=== PATIENT | male | born 1990 | race Two or more races ===

== ENCOUNTER 2016-02-26 12:45 | Emergency (ER) | payer MEDICARE, MEDICAID ==
[~2016-02-26] VITALS: Ht 165.1 cm; Wt 63.5 kg
[~2016-02-26 12:45] MED LIST: CAL667C PO; CHOL500016 PO; CINA30TA2 PO; CLON0.3T PO; FERR325T PO; HYDR100T9 PO; LAB200T PO; MET10T PO; MINO10TA2 PO; NIFE60TA59 PO; NITRSPR10 TL; NOR5T PO; PREG25CA PO; RISP0.5T45 PO
[2016-02-26 14:03] LABS: Basophils # (auto) 0 uL; Eosinophils # (auto) 0.1 uL; Eosinophils % (auto) 1.1 % (0.0-7.0); Hematocrit 29.9 % (41.0-53.0); Hemoglobin 9.7 g/dL (13.5-17.5); Lymphocytes # (auto) 0.7 uL; Lymphocytes % (auto) 7.5 % (10.0-50.0); Mean Corpuscular Hemoglobin 29.7 pg (28.0-32.0); Mean Corpuscular Hgb Conc. 32.5 g/dL (32.0-36.0); Mean Corpuscular Volume 91.2 fL (80.0-100.0); Mean Platelet Volume 7.3 fL (7.4-10.4); Monocytes # (auto) 0.5 uL; Monocytes % (auto) 5.5 % (0.0-12.0); Neutrophils # (auto) 8.1 uL; Neutrophils % (auto) 85.9 % (37.0-80.0); Platelet Count (auto) 204 10^3/uL (140-450); Red Cell Distribution Width 15.5 % (11.6-16.0); White Blood Cell 9.5 10^3/uL (4.4-10.8)
[2016-02-26 14:25] LABS: BUN/Creatinine Ratio 4.1; Bilirubin, Total 1.2 mg/dL (0.2-1.0); Calcium 9.2 mg/dL (8.5-10.1); Potassium 4.3 mmol/L (3.5-5.1); Total Protein 7.1 g/dL (6.4-8.2)
[2016-02-26] MEDS ORDERED: cefTRIAXone 1GM/50ML D5W 50 ML IV ONE (15:45)
[2016-02-26 16:03] LABS: INR 1.15 (0.9-1.15); Partial Thromboplastin Time 29.8 sec (22.64-33.71); Prothrombin Time 11.8 sec (9.37-12.3)
[2016-02-26 16:06] LABS: Magnesium 2.4 mg/dL (1.6-2.6)
[2016-02-26] MEDS ORDERED: ONDANSETRON HCL 4 MG/2 ML VIAL IV ONE (16:30)
[2016-02-26] MEDS ORDERED: MORPHINE SULF INJ 2 MG/ML SYRINGE 1ML IV ONE ×2 (16:30→19:15)
[2016-02-26] MEDS ORDERED: VANCOMYCIN IV ONE (17:15)
[2016-02-26] MEDS ORDERED: DEXTROSE IV ONE (17:15)
[2016-02-26] MEDS ORDERED: PROMETHAZINE HCL 25 MG/ML 1ML IV ONE (19:15)
[2016-02-26] MEDS ORDERED: hydrALAZINE HCL 20 MG/ML VL IV ONE (19:45)
[2016-02-26] MEDS ORDERED: ACETAMINOPHEN 325 MG TAB PO ONE (20:00)
[2016-02-26] MEDS ORDERED: LORazepam 2MG/ML-1ML VIAL IV ONE (20:30)
[2016-02-26] MEDS: NICARDIPINE 25MG/250ML BAG KIT 250 ML IV SCH (23:26)
[2016-02-27] MEDS ORDERED: LABETALOL HCL 200 MG TAB PO ONE (00:30)
[2016-02-27] MEDS ORDERED: ONDANSETRON HCL 4 MG/2 ML VIAL IV ONE (00:30)
[2016-02-27 02:49] VITALS: BP 179/103
[2016-02-27] MEDS ORDERED: MORPHINE SULFATE 4 MG/ML SYRG IV ONE (03:15)
[2016-02-27] MEDS: NICARDIPINE 25MG/250ML BAG KIT 250 ML IV SCH (03:20)
[2016-02-27] MEDS ORDERED: ALBUTEROL SULF 2.5 MG/0.5ML(0.5%) NEB SOLN NEB ONE (03:45)
[2016-02-27] MEDS ORDERED: IPRATROPIUM BROM 0.5 MG/2.5ML INH SOL NEB ONE (03:45)
== END 2016-02-27 03:22 | disposition short-term general hospital (02) ==
LOC: EDUNIT# 12:45 → ER 12:52
DX: I12.0 Hypertensive chronic kidney disease with stage 5 chronic kidney disease or end stage renal disease (principal); N18.6 End stage renal disease; Z99.2 Dependence on renal dialysis; D63.8 Anemia in other chronic diseases classified elsewhere; M65.9 Synovitis and tenosynovitis, unspecified; R11.2 Nausea with vomiting, unspecified; Z86.73 Personal history of transient ischemic attack (TIA), and cerebral infarction without residual deficits; Z94.0 Kidney transplant status; F12.10 Cannabis abuse, uncomplicated; Z79.899 Other long term (current) drug therapy
CPT/HCPCS: 36415; 71010; 73200; 80053; 82150; 83690; 83735; 85025; 85610; 85730; 87040; 93005; 94761; 96365; 96366; 96367; 96375; 96376; 99285; J0360; J0696; J2060; J2270; J2405; J2550; J3370

== ENCOUNTER 2016-03-30 02:59 | Emergency (ER) | payer MEDICARE, MEDICAID ==
[~2016-03-30] VITALS: Ht 165.1 cm; Wt 61.2 kg
[2016-03-30] MEDS ORDERED: cloNIDine HCL 0.1 MG TAB PO ONE (03:30)
[2016-03-30] MEDS ORDERED: cloNIDine HCL 0.1 MG TAB ONE (03:30)
[2016-03-30 03:56] LABS: Basophils # (auto) 0 uL; Basophils % (auto) 0.3 % (0.0-2.0); Eosinophils # (auto) 0.3 uL; Eosinophils % (auto) 5.6 % (0.0-7.0); Hematocrit 29.6 % (41.0-53.0); Hemoglobin 9.4 g/dL (13.5-17.5); Lymphocytes # (auto) 0.7 uL; Lymphocytes % (auto) 12.4 % (10.0-50.0); Mean Corpuscular Hemoglobin 28.9 pg (28.0-32.0); Mean Corpuscular Hgb Conc. 31.7 g/dL (32.0-36.0); Mean Platelet Volume 7.9 fL (7.4-10.4); Monocytes # (auto) 0.6 uL; Monocytes % (auto) 12.3 % (0.0-12.0); Neutrophils # (auto) 3.6 uL; Neutrophils % (auto) 69.4 % (37.0-80.0); Platelet Count (auto) 194 10^3/uL (140-450); Red Cell Distribution Width 16.3 % (11.6-16.0); White Blood Cell 5.3 10^3/uL (4.4-10.8)
[2016-03-30 04:13] LABS: Calcium 8.7 mg/dL (8.5-10.1); Magnesium 2.3 mg/dL (1.6-2.6)
[2016-03-30] MEDS ORDERED: ACETAMINOPHEN 325 MG TAB PO ONE (04:15)
[2016-03-30 04:21] LABS: BUN/Creatinine Ratio 5.1; Bilirubin, Total 0.7 mg/dL (0.2-1.0); Total Protein 7.4 g/dL (6.4-8.2)
[2016-03-30] MEDS ORDERED: HYDROmorphone HCL 2 MG/ML VL IV ONE (04:45)
[2016-03-30] MEDS ORDERED: ONDANSETRON HCL 4 MG/2 ML VIAL IV ONE (04:45)
[2016-03-30 06:21] VITALS: BP 170/90
== END 2016-03-30 06:28 | disposition home or self-care (01) ==
LOC: ER 03:01
DX: R07.89 Other chest pain (principal); M79.601 Pain in right arm; I12.0 Hypertensive chronic kidney disease with stage 5 chronic kidney disease or end stage renal disease; N18.6 End stage renal disease; Z99.2 Dependence on renal dialysis; Z86.73 Personal history of transient ischemic attack (TIA), and cerebral infarction without residual deficits; Z79.899 Other long term (current) drug therapy
CPT/HCPCS: 36415; 71010; 80053; 83735; 84484; 85025; 93005; 96374; 96375; 99285; J1170; J2405

== ENCOUNTER 2016-03-30 23:53 | Emergency (ER) | payer MEDICARE, MEDICAID ==
[2016-04-13] MEDS ORDERED: ACET30TA15 PO (11:33)
[2016-04-13] MEDS ORDERED: METO-159 PO (11:35)
[2016-04-24] MEDS ORDERED: METO-159 PO (17:23)
== END 2016-03-31 | disposition left against medical advice (07) ==
LOC: ER 03-31 00:05
DX: R20.0 Anesthesia of skin (principal); Z53.21 Procedure and treatment not carried out due to patient leaving prior to being seen by health care provider

== ENCOUNTER 2016-04-21 02:03 | Inpatient (IN) | payer MEDICARE, MEDICAID ==
[~2016-04-21] VITALS: Ht 165.1 cm; Wt 70.6 kg
[2016-04-21] MEDS ORDERED: ONDANSETRON HCL 4 MG/2 ML VIAL ONE (02:59)
[2016-04-21] MEDS: NICARDIPINE 25MG/250ML BAG KIT 250 ML IV SCH ×5 (03:00→22:45)
[2016-04-21] MEDS ORDERED: MORPHINE SULF INJ 2 MG/ML SYRINGE 1ML ONE (03:04)
[2016-04-21 03:05] LABS: Basophils # (auto) 0 uL; Basophils % (auto) 0.3 % (0.0-2.0); Eosinophils # (auto) 0.3 uL; Eosinophils % (auto) 3.4 % (0.0-7.0); Hematocrit 29.3 % (41.0-53.0); Hemoglobin 9.4 g/dL (13.5-17.5); Lymphocytes # (auto) 0.8 uL; Lymphocytes % (auto) 9.6 % (10.0-50.0); Mean Corpuscular Hemoglobin 28.3 pg (28.0-32.0); Mean Corpuscular Hgb Conc. 32.2 g/dL (32.0-36.0); Mean Corpuscular Volume 87.6 fL (80.0-100.0); Mean Platelet Volume 7.8 fL (7.4-10.4); Monocytes # (auto) 0.5 uL; Monocytes % (auto) 6.2 % (0.0-12.0); Neutrophils # (auto) 6.6 uL; Neutrophils % (auto) 80.5 % (37.0-80.0); Platelet Count (auto) 237 10^3/uL (140-450); White Blood Cell 8.1 10^3/uL (4.4-10.8)
[2016-04-21] MEDS ORDERED: MORPHINE SULFATE 4 MG/ML SYRG ONE (03:05)
[2016-04-21] MEDS ORDERED: MORPHINE SULFATE 10 MG/ML INJ 1ML SDV IV ONE (03:15)
[2016-04-21] MEDS ORDERED: ONDANSETRON HCL 4 MG/2 ML VIAL IV ONE ×2 (03:15)
[2016-04-21 03:17] LABS: Partial Thromboplastin Time 29.6 sec (22.64-33.71)
[2016-04-21 03:22] LABS: Albumin 3.5 g/dL (3.4-5.0); Calcium 8.6 mg/dL (8.5-10.1); Magnesium 2.2 mg/dL (1.6-2.6)
[2016-04-21 03:29] LABS: BUN/Creatinine Ratio 4.9; Bilirubin, Total 0.7 mg/dL (0.2-1.0); Total Protein 7.1 g/dL (6.4-8.2)
[2016-04-21 03:34] LABS: Potassium 6.4 mmol/L (3.5-5.1)
[2016-04-21 03:36] LABS: B-Type Natriuretic Peptide > 5000 pg/mL (0-100); Temperature: 20.3 C (20.0-25.0)
[2016-04-21 03:38] LABS: INR 1.26 (0.9-1.15)
[2016-04-21] MEDS ORDERED: ALBUTEROL SULF 2.5 MG/0.5ML(0.5%) NEB SOLN NEB ONE (03:45)
[2016-04-21] MEDS ORDERED: DEXTROSE (50%) 50ML SYRG IV ONE (03:45)
[2016-04-21] MEDS ORDERED: CALCIUM CHL 100MG/ML 1,000 MG in D5W 5% 100 ML IV ONE (03:45)
[2016-04-21] MEDS ORDERED: SODIUM BICARBONATE 8.4 % INJ 50ML VIAL IV ONE (03:45)
[2016-04-21] MEDS ORDERED: InsuLIN REG 1unit/0.01ml Soln (100units/ml) IV ONE (03:45)
[2016-04-21] MEDS ORDERED: CALCIUM GLUC 4.65 MEQ/10ML IV ONE (04:11)
[2016-04-21] MEDS ORDERED: CALCIUM CHLOR(10%) 100MG/ML 10ML SYRINGE IV ONE (04:14)
[2016-04-21] MEDS ORDERED: cloNIDine HCL 0.1 MG TAB PO ONE (04:30)
[2016-04-21] MEDS ORDERED: HYDROcodone-ACET 5/325MG TAB PO PRN (06:45)
[2016-04-21] MEDS ORDERED: MORPHINE SULF INJ 2 MG/ML SYRINGE 1ML IV PRN (06:45)
[2016-04-21] MEDS ORDERED: ONDANSETRON HCL 4 MG/2 ML VIAL IV PRN (06:45)
[2016-04-21] MEDS ORDERED: ACETAMINOPHEN 325 MG TAB PO PRN (06:45)
[2016-04-21] MEDS ORDERED: DEXTROSE (50%) 50ML SYRG IV PRN (06:45)
[2016-04-21] MEDS ORDERED: NITROGLYCERIN 0.4 MG SL TAB SL PRN (06:45)
[2016-04-21] MEDS ORDERED: FAMOTIDINE 20 MG TAB PO SCH (10:00)
[2016-04-21] MEDS: FAMOTIDINE 20 MG TAB PO SCH (10:00)
[2016-04-21 10:17] VITALS: BP 162/98
[2016-04-21] MEDS ORDERED: EPOETIN ALFA 10,000 UNIT/1 ML VIAL IV ONE (10:30)
[2016-04-21] MEDS ORDERED: NIFEdipine ER 30 MG TAB PO ONE (11:45)
[2016-04-21] MEDS ORDERED: ACCU-CHEK COMFORT CURVE STRIP VI SCH (12:00)
[2016-04-21] MEDS ORDERED: InsuLIN REG 1unit/0.01ml Soln (100units/ml) SC SCH (12:00)
[2016-04-21] MEDS: MINOXIDIL 10 MG TAB PO SCH ×2 (13:44→21:55)
[2016-04-21] MEDS: LABETALOL HCL 200 MG TAB PO SCH ×5 (13:45→16:31)
[2016-04-21] MEDS ORDERED: METOCLOPRAMIDE HCL 10 MG TAB PO PRN (14:45)
[2016-04-21] MEDS: risperiDONE 1 MG TAB PO SCH (15:13)
[2016-04-21] MEDS: PREGABALIN 25 MG CAP PO SCH (15:13)
[2016-04-21] MEDS: cloNIDine HCL 0.1 MG TAB PO SCH (21:54)
[2016-04-22 03:45] VITALS: BP 140/76
[2016-04-22 05:08] VITALS: BP 140/76
[2016-04-22 05:37] LABS: Basophils # (auto) 0 uL; Basophils % (auto) 0.2 % (0.0-2.0); DEFINITIVE VIEW TRANSMISSION; Eosinophils # (auto) 0.3 uL; Eosinophils % (auto) 5.6 % (0.0-7.0); Hematocrit 24.1 % (41.0-53.0); Hemoglobin 8.1 g/dL (13.5-17.5); Lymphocytes # (auto) 0.8 uL; Lymphocytes % (auto) 16.1 % (10.0-50.0); Mean Corpuscular Hemoglobin 28.9 pg (28.0-32.0); Mean Corpuscular Hgb Conc. 33.4 g/dL (32.0-36.0); Mean Corpuscular Volume 86.6 fL (80.0-100.0); Mean Platelet Volume 7.5 fL (7.4-10.4); Monocytes # (auto) 0.4 uL; Monocytes % (auto) 9.1 % (0.0-12.0); Neutrophils # (auto) 3.3 uL; Platelet Count (auto) 179 10^3/uL (140-450); White Blood Cell 4.8 10^3/uL (4.4-10.8)
[2016-04-22 06:13] LABS: Potassium 5.5 mmol/L (3.5-5.1)
[2016-04-22 06:28] LABS: Albumin 2.9 g/dL (3.4-5.0); BUN/Creatinine Ratio 4.6; Bilirubin, Total 0.5 mg/dL (0.2-1.0); Calcium 8.5 mg/dL (8.5-10.1)
[2016-04-22] MEDS ORDERED: LOSA100T27 PO (06:54)
[2016-04-22 08:11] VITALS: BP 138/78
[2016-04-22] MEDS: PREGABALIN 25 MG CAP PO SCH (10:00)
[2016-04-22] MEDS ORDERED: NIFEdipine ER 30 MG TAB PO SCH (10:00)
[2016-04-22 10:32] VITALS: BP 151/93
[2016-04-22] MEDS ORDERED: CLO01T PO (10:34)
[2016-04-22] MEDS: risperiDONE 1 MG TAB PO SCH (10:52)
[2016-04-22] MEDS: FAMOTIDINE 20 MG TAB PO SCH (10:53)
[2016-04-22] MEDS: MINOXIDIL 10 MG TAB PO SCH (10:53)
[2016-04-22] MEDS: cloNIDine HCL 0.1 MG TAB PO SCH (10:54)
[2016-04-22] MEDS: LABETALOL HCL 200 MG TAB PO SCH (10:55)
[2016-04-22] MEDS ORDERED: HYDROcodone-ACET 5/325MG TAB PO ONE (11:45)
[2016-04-22 12:09] VITALS: BP 144/74
[2016-04-24] MEDS ORDERED: METO-159 PO (17:23)
== END 2016-04-22 14:18 | disposition home or self-care (01) | DRG 280 ==
LOC: ER 02:09 → TELE 02:10 → TELE-EAST 04-22 03:42
PROVIDERS: ADMIT Internal Medicine; ATTEND Internal Medicine
PROC: 5A1D60Z (ICD-10-PCS; principal; 2016-04-21)
DX: I50.33 Acute on chronic diastolic (congestive) heart failure (principal); I21.4 Non-ST elevation (NSTEMI) myocardial infarction; N18.6 End stage renal disease; I13.2 Hypertensive heart and chronic kidney disease with heart failure and with stage 5 chronic kidney disease, or end stage renal disease; F11.20 Opioid dependence, uncomplicated; E87.5 Hyperkalemia; G89.4 Chronic pain syndrome; D63.8 Anemia in other chronic diseases classified elsewhere; G40.909 Epilepsy, unspecified, not intractable, without status epilepticus; F12.90 Cannabis use, unspecified, uncomplicated; I15.8 Other secondary hypertension; Z99.2 Dependence on renal dialysis; Z86.73 Personal history of transient ischemic attack (TIA), and cerebral infarction without residual deficits; Z83.3 Family history of diabetes mellitus; Z82.49 Family history of ischemic heart disease and other diseases of the circulatory system; Z91.19 Patient's noncompliance with other medical treatment and regimen
CPT/HCPCS: 36415; 71010; 80053; 82962; 83735; 83880; 84132; 84484; 85025; 85610; 85730; 87081; 90935; 93005; 94644; 96374; 96375; 99291; J0885; J1815; J2405; J7060

== ENCOUNTER 2016-05-06 20:32 | Emergency (ER) | payer MEDICARE, MEDICAID ==
[~2016-05-06] VITALS: Ht 165.1 cm; Wt 65.8 kg
[~2016-05-06 20:32] MED LIST changes: +CLO01T PO; -CLON0.3T PO; -FERR325T PO; -HYDR100T9 PO; +METO-159 PO; -NITRSPR10 TL; -NOR5T PO; -PREG25CA PO
[2016-05-06] MEDS ORDERED: LABETALOL HCL 200 MG TAB PO ONE (21:15)
[2016-05-06 21:42] LABS: Basophils # (auto) 0 uL; Basophils % (auto) 0.3 % (0.0-2.0); DEFINITIVE VIEW TRANSMISSION; Eosinophils # (auto) 0.4 uL; Eosinophils % (auto) 5.7 % (0.0-7.0); Hematocrit 25.8 % (41.0-53.0); Hemoglobin 8.3 g/dL (13.5-17.5); Lymphocytes # (auto) 0.7 uL; Lymphocytes % (auto) 10.5 % (10.0-50.0); Mean Corpuscular Hemoglobin 28.1 pg (28.0-32.0); Mean Corpuscular Hgb Conc. 32.3 g/dL (32.0-36.0); Mean Platelet Volume 7.7 fL (7.4-10.4); Monocytes # (auto) 0.6 uL; Monocytes % (auto) 8.2 % (0.0-12.0); Neutrophils # (auto) 5.4 uL; Neutrophils % (auto) 75.3 % (37.0-80.0); Platelet Count (auto) 221 10^3/uL (140-450); Red Cell Distribution Width 18.4 % (11.6-16.0); White Blood Cell 7.1 10^3/uL (4.4-10.8)
[2016-05-06 22:00] LABS: Albumin 3.4 g/dL (3.4-5.0); Calcium 8.2 mg/dL (8.5-10.1)
[2016-05-06 22:09] LABS: BUN/Creatinine Ratio 6.1; Bilirubin, Total 0.4 mg/dL (0.2-1.0); Total Protein 6.7 g/dL (6.4-8.2)
[2016-05-06 22:18] LABS: Potassium 6.2 mmol/L (3.5-5.1)
[2016-05-06] MEDS ORDERED: DEXTROSE (50%) 50ML SYRG IV ONE (22:45)
[2016-05-06] MEDS ORDERED: InsuLIN REG 1unit/0.01ml Soln (100units/ml) IV ONE (22:45)
[2016-05-06] MEDS ORDERED: SODIUM BICARBONATE 8.4 % INJ 50ML VIAL IV ONE (22:45)
[2016-05-06] MEDS ORDERED: CALCIUM CHL 100MG/ML 1,000 MG in D5W 5% 100 ML IV ONE (22:45)
[2016-05-07] MEDS ORDERED: CALCIUM CHLOR(10%) 100MG/ML 10ML SYRINGE IV ONE (00:18)
[2016-05-07] MEDS ORDERED: HYDROmorphone HCL 2 MG/ML VL IV ONE (00:45)
[2016-05-07] MEDS ORDERED: ONDANSETRON HCL 4 MG/2 ML VIAL ONE (00:53)
[2016-05-07] MEDS ORDERED: ONDANSETRON HCL 4 MG/2 ML VIAL IV ONE (01:00)
[2016-05-07] MEDS ORDERED: cloNIDine HCL 0.1 MG TAB PO ONE (01:45)
[2016-05-07 05:04] VITALS: BP 186/125
== END 2016-05-07 05:45 | disposition home or self-care (01) ==
LOC: ER 20:43
DX: I12.0 Hypertensive chronic kidney disease with stage 5 chronic kidney disease or end stage renal disease (principal); N18.6 End stage renal disease; Z99.2 Dependence on renal dialysis; Z86.73 Personal history of transient ischemic attack (TIA), and cerebral infarction without residual deficits; F12.10 Cannabis abuse, uncomplicated; Z79.899 Other long term (current) drug therapy
CPT/HCPCS: 36415; 80053; 82962; 85025; 96365; 96375; 99284; J1170; J1815; J2405; J7042; J7060

== ENCOUNTER 2016-06-23 20:14 | Inpatient (IN) | payer MEDICARE, MEDICAID ==
[~2016-06-23] VITALS: Ht 165.1 cm; Wt 59.5 kg
[2016-06-23] MEDS ORDERED: CLINDAMYCIN 900MG IV 50 ML IV ONE (22:00)
[2016-06-23] MEDS ORDERED: KETOROLAC TROMETH 30 MG/ML 1ML VIAL IV ONE (22:00)
[2016-06-23] MEDS ORDERED: ENALAPRILAT 1.25 MG/ML-1ML VIAL IV ONE (22:00)
[2016-06-23] MEDS: NICARDIPINE 25MG/250ML BAG KIT 250 ML IV SCH (22:55)
[2016-06-23 23:07] LABS: Basophils # (auto) 0 uL; Eosinophils # (auto) 0.1 uL; Eosinophils % (auto) 1.1 % (0.0-7.0); Lymphocytes # (auto) 0.4 uL; Lymphocytes % (auto) 5.3 % (10.0-50.0); Monocytes # (auto) 0.7 uL; Monocytes % (auto) 9.1 % (0.0-12.0); Neutrophils # (auto) 6.3 uL; Neutrophils % (auto) 84.5 % (37.0-80.0); White Blood Cell 7.4 10^3/uL (4.4-10.8)
[2016-06-23 23:08] LABS: Hematocrit 27.4 % (41.0-53.0); Hemoglobin 8.9 g/dL (13.5-17.5); Mean Corpuscular Hemoglobin 27.5 pg (28.0-32.0); Mean Corpuscular Hgb Conc. 32.4 g/dL (32.0-36.0); Mean Corpuscular Volume 84.8 fL (80.0-100.0)
[2016-06-23 23:09] LABS: Mean Platelet Volume 8.1 fL (7.4-10.4); Platelet Count (auto) 213 10^3/uL (140-450); Red Cell Distribution Width 20.1 % (11.6-16.0)
[2016-06-23 23:14] LABS: INR 1.22 (0.9-1.15); Prothrombin Time 13.2 sec (9.37-12.3)
[2016-06-23 23:25] LABS: Albumin 3.7 g/dL (3.4-5.0); BUN/Creatinine Ratio 5.3; Bilirubin, Total 1.3 mg/dL (0.2-1.0); Calcium 9.8 mg/dL (8.5-10.1); Magnesium 2.5 mg/dL (1.6-2.6); Potassium 4.5 mmol/L (3.5-5.1); Total Protein 7.2 g/dL (6.4-8.2)
[2016-06-23 23:34] LABS: Anisocytosis Slight; Ovalocytes FEW; Platelet Estimate Adequate; Tear Drop Cells OCCL.
[2016-06-24] MEDS ORDERED: ONDANSETRON HCL 4 MG/2 ML VIAL ONE (01:12)
[2016-06-24] MEDS ORDERED: ONDANSETRON HCL 4 MG/2 ML VIAL IV ONE (01:15)
[2016-06-24] MEDS ORDERED: MINOXIDIL 10 MG TAB ONE (01:39)
[2016-06-24] MEDS ORDERED: cloNIDine HCL 0.1 MG TAB ONE (01:39)
[2016-06-24] MEDS ORDERED: LABETALOL HCL 200 MG TAB ONE (01:39)
[2016-06-24] MEDS ORDERED: LABETALOL HCL 200 MG TAB PO ONE (04:00)
[2016-06-24] MEDS ORDERED: MINOXIDIL 10 MG TAB PO ONE (04:00)
[2016-06-24] MEDS ORDERED: cloNIDine HCL 0.1 MG TAB PO ONE (04:00)
[2016-06-24] MEDS: NICARDIPINE 25MG/250ML BAG KIT 250 ML IV SCH (04:10)
[2016-06-24] MEDS ORDERED: HYDROcodone-ACET 5/325MG TAB PO PRN (05:00)
[2016-06-24] MEDS ORDERED: ACETAMINOPHEN 325 MG TAB PO PRN (05:00)
[2016-06-24] MEDS ORDERED: ONDANSETRON HCL 4 MG/2 ML VIAL IV PRN (05:00)
[2016-06-24] MEDS ORDERED: CLINDAMYCIN 600MG IV 50 ML IV SCH ×2 (06:00→15:00)
[2016-06-24] MEDS: CALCIUM ACETATE 667 MG CAP PO SCH ×3 (08:04→17:48)
[2016-06-24 08:40] VITALS: BP 131/66
[2016-06-24] MEDS: cloNIDine HCL 0.1 MG TAB PO SCH ×2 (09:52→21:30)
[2016-06-24] MEDS: FAMOTIDINE 20 MG TAB PO SCH (09:53)
[2016-06-24] MEDS: NALBUPHINE HCL 10 MG/1ml INJECTION IV PRN ×2 (09:57→18:47)
[2016-06-24] MEDS: METOPROLOL TARTRATE 50 MG TAB PO SCH ×2 (09:59→21:31)
[2016-06-24] MEDS: risperiDONE 1 MG TAB PO SCH (09:59)
[2016-06-24] MEDS: LABETALOL HCL 200 MG TAB PO SCH ×2 (10:00→21:32)
[2016-06-24] MEDS: MINOXIDIL 10 MG TAB PO SCH ×2 (10:00→21:31)
[2016-06-24] MEDS ORDERED: FAMOTIDINE 20 MG TAB PO SCH (10:00)
[2016-06-24] MEDS: NIFEdipine ER 30 MG TAB PO SCH (10:01)
[2016-06-24] MEDS: ENOXAPARIN SOD 30 MG/0.3 ML SYRINGE SC SCH (10:01)
[2016-06-24 12:22] VITALS: BP 124/82
[2016-06-24] MEDS ORDERED: cefTRIAXone 1GM/50ML D5W 50 ML IV ONE (14:00)
[2016-06-24] MEDS: diphenhdrAMINE HCL 50 MG/1 ML VL IV PRN ×2 (15:00→21:42)
[2016-06-24 16:23] VITALS: BP 114/49
[2016-06-24] MEDS ORDERED: predniSONE 20 MG TAB PO ONE (19:00)
[2016-06-24 22:06] VITALS: BP 120/56
[2016-06-25] MEDS: NALBUPHINE HCL 10 MG/1ml INJECTION IV PRN ×2 (00:49→06:39)
[2016-06-25 05:31] VITALS: BP 124/55
[2016-06-25] MEDS: diphenhdrAMINE HCL 50 MG/1 ML VL IV PRN (06:00)
[2016-06-25 06:05] LABS: Basophils # (auto) 0 uL; DEFINITIVE VIEW TRANSMISSION; Eosinophils # (auto) 0 uL; Eosinophils % (auto) 0.3 % (0.0-7.0); Hematocrit 26.8 % (41.0-53.0); Hemoglobin 8.7 g/dL (13.5-17.5); Lymphocytes # (auto) 0.3 uL; Lymphocytes % (auto) 8.2 % (10.0-50.0); Mean Corpuscular Hemoglobin 27.3 pg (28.0-32.0); Mean Corpuscular Hgb Conc. 32.4 g/dL (32.0-36.0); Mean Corpuscular Volume 84.4 fL (80.0-100.0); Mean Platelet Volume 8.1 fL (7.4-10.4); Monocytes # (auto) 0.1 uL; Monocytes % (auto) 2.9 % (0.0-12.0); Neutrophils # (auto) 3.2 uL; Neutrophils % (auto) 88.6 % (37.0-80.0); Platelet Count (auto) 228 10^3/uL (140-450); Red Cell Distribution Width 19.7 % (11.6-16.0); White Blood Cell 3.6 10^3/uL (4.4-10.8)
[2016-06-25 06:35] LABS: Albumin 3.2 g/dL (3.4-5.0); BUN/Creatinine Ratio 5.2; Bilirubin, Total 0.7 mg/dL (0.2-1.0); Calcium 8.8 mg/dL (8.5-10.1); Total Protein 6.5 g/dL (6.4-8.2)
[2016-06-25 06:40] LABS: Potassium 5.6 mmol/L (3.5-5.1)
[2016-06-25 08:10] VITALS: BP 117/56
[2016-06-25] MEDS ORDERED: cefTRIAXone 1GM/50ML D5W 50 ML IV SCH (09:00)
[2016-06-25 09:05] VITALS: BP 118/60
[2016-06-25] MEDS: ENOXAPARIN SOD 30 MG/0.3 ML SYRINGE SC SCH (10:00)
[2016-06-25] MEDS ORDERED: EPOETIN ALFA 10,000 UNIT/1 ML VIAL IV ONE (10:00)
[2016-06-25] MEDS ORDERED: SODIUM CHL 0.9% 1000 ML BAG XX ONE (10:00)
[2016-06-25 10:35] VITALS: BP 122/65
[2016-06-25] MEDS: CALCIUM ACETATE 667 MG CAP PO SCH (10:55)
[2016-06-25] MEDS: cloNIDine HCL 0.1 MG TAB PO SCH (10:56)
[2016-06-25] MEDS: METOPROLOL TARTRATE 50 MG TAB PO SCH (10:57)
[2016-06-25] MEDS: LABETALOL HCL 200 MG TAB PO SCH (10:57)
[2016-06-25] MEDS: NIFEdipine ER 30 MG TAB PO SCH (10:57)
[2016-06-25] MEDS: MINOXIDIL 10 MG TAB PO SCH (10:58)
[2016-06-25] MEDS: FAMOTIDINE 20 MG TAB PO SCH (10:58)
[2016-06-25] MEDS: risperiDONE 1 MG TAB PO SCH (10:58)
== END 2016-06-25 11:00 | disposition left against medical advice (07) | DRG 602 ==
LOC: ER 20:20 → OVERFLOW 20:21 → WEST WING 06-24 08:45
PROVIDERS: ADMIT Nurse Practitioner; ATTEND Internal Medicine
PROC: 5A1D00Z (ICD-10-PCS; principal; 2016-06-25)
DX: L03.115 Cellulitis of right lower limb (principal); N18.6 End stage renal disease; J81.0 Acute pulmonary edema; F11.20 Opioid dependence, uncomplicated; I12.0 Hypertensive chronic kidney disease with stage 5 chronic kidney disease or end stage renal disease; D63.8 Anemia in other chronic diseases classified elsewhere; I51.7 Cardiomegaly; F12.90 Cannabis use, unspecified, uncomplicated; Z91.14 Patient's other noncompliance with medication regimen; Z99.2 Dependence on renal dialysis; Z86.73 Personal history of transient ischemic attack (TIA), and cerebral infarction without residual deficits; Z82.49 Family history of ischemic heart disease and other diseases of the circulatory system; Z83.3 Family history of diabetes mellitus
CPT/HCPCS: 36415; 71010; 73630; 80053; 83735; 84484; 84550; 85025; 85610; 85730; 86141; 87040; 87081; 93005; 96365; 96366; 96375; 99291; J0696; J0885; J1642; J1885; J2405; J3490

== ENCOUNTER 2016-09-06 17:28 | Inpatient (IN) | payer MEDICARE, MEDICAID ==
[~2016-09-06] VITALS: Ht 165.1 cm; Wt 60.8 kg
[~2016-09-06 17:28] MED LIST changes: -CAL667C PO; +CALC667C5 PO; -LAB200T PO; +LOSA100T27 PO; +OMEP20CA74 PO; +PROM25TA5 PO; +TRAM50TA2 PO
[2016-09-06] MEDS ORDERED: ALBUTEROL SULF 2.5 MG/0.5ML(0.5%) NEB SOLN NEB ONE (18:30)
[2016-09-06] MEDS ORDERED: IPRATROPIUM BROM 0.5 MG/2.5ML INH SOL NEB ONE (18:30)
[2016-09-06 18:59] LABS: Basophils # (auto) 0 uL; CONDITION Y; DEFINITIVE SEE PRINTOUT; Eosinophils # (auto) 0.6 uL; Eosinophils % (auto) 9.5 % (0.0-7.0); Monocytes # (auto) 0.4 uL
[2016-09-06 19:04] LABS: Basophils % (auto) 0.1 % (0.0-2.0); Hematocrit 26.8 % (41.0-53.0); Hemoglobin 9.3 g/dL (13.5-17.5); Lymphocytes # (auto) 0.8 uL; Lymphocytes % (auto) 11.8 % (10.0-50.0); Mean Corpuscular Hemoglobin 30.1 pg (28.0-32.0); Mean Corpuscular Hgb Conc. 34.6 g/dL (32.0-36.0); Mean Platelet Volume 8.1 fL (7.4-10.4); Neutrophils # (auto) 4.8 uL; Neutrophils % (auto) 72.6 % (37.0-80.0); Platelet Count (auto) 195 10^3/uL (140-450); Red Cell Distribution Width 19.6 % (11.6-16.0); White Blood Cell 6.6 10^3/uL (4.4-10.8)
[2016-09-06] MEDS ORDERED: cloNIDine HCL 0.1 MG TAB PO ONE (19:15)
[2016-09-06] MEDS ORDERED: NALBUPHINE HCL 10 MG/1ml INJECTION IV ONE (19:15)
[2016-09-06 19:22] LABS: Albumin 3.6 g/dL (3.4-5.0); Bilirubin, Total 0.8 mg/dL (0.2-1.0); Calcium 9.3 mg/dL (8.5-10.1); Potassium 4.6 mmol/L (3.5-5.1); Total Protein 6.9 g/dL (6.4-8.2)
[2016-09-06] MEDS ORDERED: FUROSEMIDE 20 MG/2 ML VIAL IV ONE (20:00)
[2016-09-06 20:35] LABS: Temperature: 22.4 C (20.0-25.0)
[2016-09-06] MEDS ORDERED: hydrALAZINE HCL 20 MG/ML VL IV ONE (20:45)
[2016-09-06] MEDS ORDERED: LORazepam 0.5 MG TAB PO PRN (21:30)
[2016-09-06] MEDS ORDERED: HYDROcodone-ACET 5/325MG TAB PO PRN (21:30)
[2016-09-06] MEDS ORDERED: ONDANSETRON HCL 4 MG/2 ML VIAL IV PRN (21:30)
[2016-09-06] MEDS ORDERED: ACETAMINOPHEN 500 MG TAB PO PRN (21:30)
[2016-09-06] MEDS ORDERED: NITROGLYCERIN 0.4 MG SL TAB SL PRN (21:30)
[2016-09-06] MEDS ORDERED: TEMAZEPAM 15 MG CAP PO PRN (21:30)
[2016-09-06] MEDS ORDERED: LABETALOL HCL 5 MG/ML 4ML SYRINGE IV ONE (21:45)
[2016-09-06] MEDS: cloNIDine HCL 0.1 MG TAB PO SCH (22:00)
[2016-09-06] MEDS: METOPROLOL TARTRATE 50 MG TAB PO SCH (22:01)
[2016-09-06] MEDS: ATORVASTATIN 20 MG TAB PO SCH (22:01)
[2016-09-07] VITALS (13 sets, daily range): BP systolic 136–175; BP diastolic 81–111
[2016-09-07] MEDS ORDERED: hydrALAZINE HCL 20 MG/ML VL IV PRN (02:30)
[2016-09-07] MEDS ORDERED: PROMETHAZINE HCL 25 MG/ML 1ML ONE (04:19)
[2016-09-07] MEDS: PROMETHAZINE HCL 25 MG/ML 1ML IV PRN (04:33)
[2016-09-07] MEDS ORDERED: SODIUM CHL 0.9% 1000 ML BAG XX ONE (08:15)
[2016-09-07] MEDS ORDERED: EPOETIN ALFA 10,000 UNIT/1 ML VIAL IV ONE (08:15)
[2016-09-07] MEDS: ASPirin 81 mg TAB PO SCH (12:27)
[2016-09-07] MEDS: cloNIDine HCL 0.1 MG TAB PO SCH ×2 (12:28→21:13)
[2016-09-07] MEDS: MINOXIDIL 10 MG TAB PO SCH (12:28)
[2016-09-07] MEDS: METOPROLOL TARTRATE 50 MG TAB PO SCH ×2 (12:29→21:12)
[2016-09-07] MEDS: ATORVASTATIN 20 MG TAB PO SCH (21:12)
[2016-09-07] MEDS: MORPHINE SULF INJ 2 MG/ML SYRINGE 1ML IV PRN (21:13)
[2016-09-08] MEDS: MORPHINE SULF INJ 2 MG/ML SYRINGE 1ML IV PRN ×4 (01:50→15:30)
[2016-09-08 04:00] VITALS: BP 141/93
[2016-09-08 04:30] LABS: Basophils # (auto) 0 uL; Basophils % (auto) 0.5 % (0.0-2.0); CONDITION Y; DEFINITIVE SEE PRINTOUT; Eosinophils # (auto) 0.5 uL; Eosinophils % (auto) 10.8 % (0.0-7.0); Hematocrit 28.3 % (41.0-53.0); Hemoglobin 9.2 g/dL (13.5-17.5); Lymphocytes # (auto) 0.7 uL; Lymphocytes % (auto) 15.7 % (10.0-50.0); Mean Corpuscular Hemoglobin 28.2 pg (28.0-32.0); Mean Corpuscular Hgb Conc. 32.7 g/dL (32.0-36.0); Mean Corpuscular Volume 86.5 fL (80.0-100.0); Monocytes # (auto) 0.5 uL; Monocytes % (auto) 10.1 % (0.0-12.0); Neutrophils # (auto) 2.8 uL; Neutrophils % (auto) 62.9 % (37.0-80.0); Platelet Count (auto) 174 10^3/uL (140-450); White Blood Cell 4.5 10^3/uL (4.4-10.8)
[2016-09-08 04:37] LABS: Red Cell Distribution Width 20.2 % (11.6-16.0)
[2016-09-08 04:48] LABS: Albumin 3.3 g/dL (3.4-5.0); Calcium 8.8 mg/dL (8.5-10.1); Potassium 4.8 mmol/L (3.5-5.1)
[2016-09-08 04:55] LABS: BUN/Creatinine Ratio 5.1; Bilirubin, Total 1.1 mg/dL (0.2-1.0); Total Protein 6.5 g/dL (6.4-8.2)
[2016-09-08 05:04] LABS: Anisocytosis Slight; Platelet Estimate Adequate
[2016-09-08 05:05] LABS: Ovalocytes FEW
[2016-09-08] MEDS: MINOXIDIL 10 MG TAB PO SCH (10:09)
[2016-09-08] MEDS: ASPirin 81 mg TAB PO SCH (10:09)
[2016-09-08] MEDS: METOPROLOL TARTRATE 50 MG TAB PO SCH ×2 (10:12→22:36)
[2016-09-08] MEDS: cloNIDine HCL 0.1 MG TAB PO SCH ×2 (10:12→22:35)
[2016-09-08] MEDS: NIFEdipine ER 30 MG TAB PO SCH (11:52)
[2016-09-08 11:57] VITALS: BP 154/94
[2016-09-08 14:21] LABS: INR 1.16 (0.9-1.15)
[2016-09-08 14:32] LABS: Prothrombin Time 12.7 sec (9.37-12.3)
[2016-09-08 16:34] VITALS: BP 135/92
[2016-09-08] MEDS: PROMETHAZINE HCL 25 MG/ML 1ML IV PRN (19:58)
[2016-09-08] MEDS: MORPHINE SULFATE 4 MG/ML SYRG IV PRN (19:58)
[2016-09-08 21:44] VITALS: BP 149/94
[2016-09-08] MEDS: ATORVASTATIN 20 MG TAB PO SCH (22:35)
[2016-09-09] MEDS: MORPHINE SULFATE 4 MG/ML SYRG IV PRN ×4 (00:10→15:10)
[2016-09-09 05:21] VITALS: BP 161/107
[2016-09-09 09:06] VITALS: BP 159/99
[2016-09-09] MEDS: ASPirin 81 mg TAB PO SCH (09:09)
[2016-09-09] MEDS: cloNIDine HCL 0.1 MG TAB PO SCH ×2 (09:09→22:28)
[2016-09-09] MEDS: MINOXIDIL 10 MG TAB PO SCH (09:09)
[2016-09-09] MEDS: METOPROLOL TARTRATE 50 MG TAB PO SCH ×2 (09:10→22:29)
[2016-09-09] MEDS: NIFEdipine ER 30 MG TAB PO SCH (09:10)
[2016-09-09] MEDS: PROMETHAZINE HCL 25 MG/ML 1ML IV PRN ×2 (09:11→15:10)
[2016-09-09] MEDS ORDERED: HEPARIN IN NS 1000Units/500mL 0 ML ONE (11:00)
[2016-09-09] MEDS ORDERED: LIDOCAINE 2%HCL (LOCAL ANESTH.) INJ 20ML MDV ONE (11:00)
[2016-09-09] MEDS ORDERED: IOHEXOL 350 MG/ML 100ML IJ ONE (11:00)
[2016-09-09 13:57] VITALS: BP 180/108
[2016-09-09 17:30] VITALS: BP 162/100
[2016-09-09 22:00] VITALS: BP 144/85
[2016-09-09] MEDS: MORPHINE SULF INJ 2 MG/ML SYRINGE 1ML IV PRN (22:26)
[2016-09-09] MEDS: ATORVASTATIN 20 MG TAB PO SCH (22:27)
[2016-09-10] MEDS: MORPHINE SULF INJ 2 MG/ML SYRINGE 1ML IV PRN ×2 (03:45→08:35)
[2016-09-10 05:00] VITALS: BP 134/83
[2016-09-10 09:00] VITALS: BP 150/85
[2016-09-10] MEDS: cloNIDine HCL 0.1 MG TAB PO SCH ×2 (10:00→21:49)
[2016-09-10] MEDS: MINOXIDIL 10 MG TAB PO SCH ×2 (10:00→17:20)
[2016-09-10] MEDS: METOPROLOL TARTRATE 50 MG TAB PO SCH ×2 (10:00→21:49)
[2016-09-10] MEDS: NIFEdipine ER 30 MG TAB PO SCH ×2 (10:00→17:21)
[2016-09-10] MEDS: ASPirin 81 mg TAB PO SCH (10:00)
[2016-09-10] MEDS ORDERED: HEPARIN SODIUM (PORCINE) 5000 UNITS/ML 1ML VIAL ONE (11:18)
[2016-09-10 13:00] VITALS: BP 130/77
[2016-09-10 17:00] VITALS: BP 174/96
[2016-09-10] MEDS: MORPHINE SULFATE 4 MG/ML SYRG IV PRN (20:25)
[2016-09-10] MEDS: ATORVASTATIN 20 MG TAB PO SCH (21:49)
[2016-09-10 22:00] VITALS: BP 162/98
[2016-09-11] MEDS: MORPHINE SULFATE 4 MG/ML SYRG IV PRN (01:11)
[2016-09-11 05:00] VITALS: BP 143/92
[2016-09-11] MEDS: MORPHINE SULF INJ 2 MG/ML SYRINGE 1ML IV PRN ×3 (06:06→11:08)
[2016-09-11 09:00] VITALS: BP 147/84
[2016-09-11] MEDS: ASPirin 81 mg TAB PO SCH (10:48)
[2016-09-11] MEDS: cloNIDine HCL 0.1 MG TAB PO SCH (10:49)
[2016-09-11] MEDS: NIFEdipine ER 30 MG TAB PO SCH (10:50)
[2016-09-11] MEDS: METOPROLOL TARTRATE 50 MG TAB PO SCH (10:50)
[2016-09-11] MEDS: MINOXIDIL 10 MG TAB PO SCH (10:50)
[2016-09-11 13:00] VITALS: BP 149/98
== END 2016-09-11 15:35 | disposition home or self-care (01) | DRG 291 ==
LOC: ER 17:29 → OVERFLOW 17:30 → ICU CENTRL 23:43 → DOU IN ICU 09-07 00:16 → TELE-EAST 09-08 14:44
PROVIDERS: ADMIT Internal Medicine; ATTEND Internal Medicine Pulmonary Disease
PROC: 5A1D60Z (ICD-10-PCS; principal; 2016-09-07)
DX: I13.2 Hypertensive heart and chronic kidney disease with heart failure and with stage 5 chronic kidney disease, or end stage renal disease (principal); N18.6 End stage renal disease; D63.1 Anemia in chronic kidney disease; I50.9 Heart failure, unspecified; F41.9 Anxiety disorder, unspecified; I27.2 Other secondary pulmonary hypertension; I16.0 Hypertensive urgency; Z79.899 Other long term (current) drug therapy; Z82.49 Family history of ischemic heart disease and other diseases of the circulatory system; Z99.2 Dependence on renal dialysis; Z91.19 Patient's noncompliance with other medical treatment and regimen; Z86.73 Personal history of transient ischemic attack (TIA), and cerebral infarction without residual deficits; Z83.3 Family history of diabetes mellitus
CPT/HCPCS: 36415; 71020; 80053; 82550; 83880; 84484; 85025; 85379; 85610; 85652; 87081; 90935; 93005; 94640; 96374; 96375; J0885; J1642; J2405

== ENCOUNTER 2016-09-21 04:48 | Inpatient (IN) | payer MEDICARE, MEDICAID ==
[~2016-09-21] VITALS: Ht 165.1 cm; Wt 69.0 kg
[~2016-09-21 04:48] MED LIST changes: -TRAM50TA2 PO
[2016-09-21] MEDS ORDERED: MORPHINE SULF INJ 2 MG/ML SYRINGE 1ML IV ONE (05:45)
[2016-09-21] MEDS ORDERED: cloNIDine HCL 0.1 MG TAB PO ONE (05:45)
[2016-09-21] MEDS ORDERED: ONDANSETRON HCL 4 MG/2 ML VIAL IV ONE ×2 (05:45→06:45)
[2016-09-21 05:49] LABS: Basophils # (auto) 0 uL; Basophils % (auto) 0.4 % (0.0-2.0); CONDITION Y; DEFINITIVE SEE PRINTOUT; Eosinophils # (auto) 0.4 uL; Eosinophils % (auto) 7.2 % (0.0-7.0); Hematocrit 27.1 % (41.0-53.0); Hemoglobin 9.3 g/dL (13.5-17.5); Lymphocytes # (auto) 0.7 uL; Lymphocytes % (auto) 13.9 % (10.0-50.0); Mean Corpuscular Hemoglobin 30.7 pg (28.0-32.0); Mean Corpuscular Hgb Conc. 34.2 g/dL (32.0-36.0); Mean Corpuscular Volume 89.6 fL (80.0-100.0); Mean Platelet Volume 8.6 fL (7.4-10.4); Monocytes # (auto) 0.4 uL; Monocytes % (auto) 7.3 % (0.0-12.0); Neutrophils # (auto) 3.7 uL; Neutrophils % (auto) 71.2 % (37.0-80.0); Platelet Count (auto) 174 10^3/uL (140-450); Red Cell Distribution Width 19.5 % (11.6-16.0); White Blood Cell 5.3 10^3/uL (4.4-10.8)
[2016-09-21 05:58] LABS: Albumin 3.4 g/dL (3.4-5.0); BUN/Creatinine Ratio 4.8; Bilirubin, Total 0.8 mg/dL (0.2-1.0); Calcium 9.2 mg/dL (8.5-10.1); Magnesium 2.1 mg/dL (1.6-2.6); Potassium 4.4 mmol/L (3.5-5.1); Total Protein 6.8 g/dL (6.4-8.2)
[2016-09-21 06:10] LABS: Temperature: 21.8 C (20.0-25.0)
[2016-09-21] MEDS ORDERED: HYDROmorphone HCL 2 MG/ML VL IV ONE (06:45)
[2016-09-21] MEDS ORDERED: LABETALOL HCL 5 MG/ML ML 20ML VIAL IV ONE (08:00)
[2016-09-21] MEDS ORDERED: DOCUSATE SOD 100 MG CAP PO PRN (09:00)
[2016-09-21] MEDS ORDERED: MORPHINE SULF INJ 2 MG/ML SYRINGE 1ML IV PRN (09:00)
[2016-09-21] MEDS ORDERED: NITROGLYCERIN 0.4 MG SL TAB SL PRN (09:00)
[2016-09-21] MEDS ORDERED: METOCLOPRAMIDE HCL 10 MG TAB PO PRN (09:00)
[2016-09-21] MEDS ORDERED: ACETAMINOPHEN 325 MG TAB PO PRN (09:00)
[2016-09-21] MEDS ORDERED: HYDROcodone-ACET 5/325MG TAB PO PRN (09:00)
[2016-09-21] MEDS: MINOXIDIL 10 MG TAB PO SCH ×2 (09:42→20:59)
[2016-09-21] MEDS: CINACALCET HYDROCHLORIDE 30 MG TAB PO SCH (09:42)
[2016-09-21] MEDS: LOSARTAN POTASSIUM 50 MG TAB PO SCH (09:42)
[2016-09-21] MEDS: METOPROLOL TARTRATE 50 MG TAB PO SCH ×2 (09:42→20:59)
[2016-09-21] MEDS: CHOLECALCIFEROL (VITD3) 1,000 UNIT TAB PO SCH (09:42)
[2016-09-21] MEDS: cloNIDine HCL 0.1 MG TAB PO SCH ×2 (09:42→20:58)
[2016-09-21] MEDS: risperiDONE 1 MG TAB PO SCH (09:42)
[2016-09-21] MEDS: NIFEdipine ER 30 MG TAB PO SCH (09:42)
[2016-09-21] MEDS: PANTOPRAZOLE 40 MG TAB PO SCH (09:42)
[2016-09-21] MEDS ORDERED: FAMOTIDINE 20 MG TAB PO SCH (10:00)
[2016-09-21] MEDS: MORPHINE SULF INJ 2 MG/ML SYRINGE 1ML IV PRN ×3 (12:07→22:32)
[2016-09-21] MEDS: ONDANSETRON HCL 4 MG/2 ML VIAL IV PRN (12:07)
[2016-09-21] MEDS: CALCIUM ACETATE 667 MG CAP PO SCH ×2 (12:07→17:39)
[2016-09-21] MEDS: B-COMPLEX W/ C & FOLIC ACID(NEPHROVITE TAB) PO SCH (12:14)
[2016-09-21] MEDS: SODIUM CHLOR 0.9% PF (SALINE LOCK) 10ML VIAL IV SCH ×2 (15:49→20:51)
[2016-09-21 17:28] VITALS: BP 159/101
[2016-09-21] MEDS: cloNIDine HCL 0.1 MG TAB PO PRN ×2 (17:38→23:20)
[2016-09-21] MEDS ORDERED: diphenhdrAMINE HCL 50 MG/1 ML VL ONE (21:00)
[2016-09-21 22:00] VITALS: BP 151/91
[2016-09-22] MEDS: diphenhdrAMINE HCL 50 MG/1 ML VL IV PRN ×5 (02:43→21:44)
[2016-09-22] MEDS: MORPHINE SULF INJ 2 MG/ML SYRINGE 1ML IV PRN ×5 (02:43→21:37)
[2016-09-22 05:00] VITALS: BP 155/102
[2016-09-22] MEDS: SODIUM CHLOR 0.9% PF (SALINE LOCK) 10ML VIAL IV SCH ×3 (06:00→21:38)
[2016-09-22 07:01] LABS: CONDITION Y; DEFINITIVE SEE PRINTOUT; Hematocrit 26.8 % (41.0-53.0); Mean Corpuscular Hemoglobin 29.1 pg (28.0-32.0); Mean Corpuscular Hgb Conc. 33.7 g/dL (32.0-36.0); Mean Corpuscular Volume 86.5 fL (80.0-100.0); Mean Platelet Volume 8.2 fL (7.4-10.4); Platelet Count (auto) 162 10^3/uL (140-450); Red Cell Distribution Width 19.8 % (11.6-16.0); White Blood Cell 4.6 10^3/uL (4.4-10.8)
[2016-09-22 07:50] LABS: Metamyelocytes % 0; Myelocytes % 0; Promyelocytes % 0; Reactive Lymphocytes 0
[2016-09-22 07:53] LABS: Albumin 3.1 g/dL (3.4-5.0); Bilirubin, Total 0.9 mg/dL (0.2-1.0); Calcium 8.9 mg/dL (8.5-10.1); Total Protein 6.1 g/dL (6.4-8.2)
[2016-09-22 08:30] VITALS: BP 154/95
[2016-09-22] MEDS: CALCIUM ACETATE 667 MG CAP PO SCH ×3 (08:31→18:17)
[2016-09-22] MEDS: CINACALCET HYDROCHLORIDE 30 MG TAB PO SCH (10:00)
[2016-09-22] MEDS: NIFEdipine ER 30 MG TAB PO SCH (10:16)
[2016-09-22] MEDS: METOPROLOL TARTRATE 50 MG TAB PO SCH ×2 (10:16→21:37)
[2016-09-22] MEDS: cloNIDine HCL 0.1 MG TAB PO SCH ×2 (10:17→21:38)
[2016-09-22] MEDS: LOSARTAN POTASSIUM 50 MG TAB PO SCH (10:18)
[2016-09-22] MEDS: MINOXIDIL 10 MG TAB PO SCH ×2 (10:18→21:43)
[2016-09-22] MEDS: risperiDONE 1 MG TAB PO SCH (10:19)
[2016-09-22] MEDS: CHOLECALCIFEROL (VITD3) 1,000 UNIT TAB PO SCH (10:19)
[2016-09-22] MEDS: B-COMPLEX W/ C & FOLIC ACID(NEPHROVITE TAB) PO SCH (10:20)
[2016-09-22] MEDS: PANTOPRAZOLE 40 MG TAB PO SCH (10:20)
[2016-09-22 11:04] LABS: Platelet Estimate Adequate
[2016-09-22 11:05] LABS: Anisocytosis Moderate; Burr Cells FEW; Tear Drop Cells FEW
[2016-09-22 12:30] VITALS: BP 154/90
[2016-09-22] MEDS ORDERED: EPOETIN ALFA 2,000 UNIT/1 ML VIAL IV ONE (13:45)
[2016-09-22] MEDS ORDERED: EPOETIN ALFA 3,000 UNIT/1 ML VIAL IV ONE (13:45)
[2016-09-22 17:00] VITALS: BP 130/72
[2016-09-22 22:00] VITALS: BP 152/78
[2016-09-23] MEDS: diphenhdrAMINE HCL 50 MG/1 ML VL IV PRN ×5 (01:00→20:04)
[2016-09-23] MEDS: MORPHINE SULF INJ 2 MG/ML SYRINGE 1ML IV PRN ×5 (02:30→20:03)
[2016-09-23 06:08] VITALS: BP 146/80
[2016-09-23] MEDS: SODIUM CHLOR 0.9% PF (SALINE LOCK) 10ML VIAL IV SCH ×3 (06:30→22:01)
[2016-09-23 08:00] VITALS: BP 147/77
[2016-09-23 09:50] VITALS: BP 152/86
[2016-09-23] MEDS: CINACALCET HYDROCHLORIDE 30 MG TAB PO SCH (10:00)
[2016-09-23] MEDS: CHOLECALCIFEROL (VITD3) 1,000 UNIT TAB PO SCH (10:35)
[2016-09-23] MEDS: CALCIUM ACETATE 667 MG CAP PO SCH ×3 (10:35→17:25)
[2016-09-23] MEDS: B-COMPLEX W/ C & FOLIC ACID(NEPHROVITE TAB) PO SCH (10:35)
[2016-09-23] MEDS: cloNIDine HCL 0.1 MG TAB PO SCH ×2 (10:35→21:57)
[2016-09-23] MEDS: NIFEdipine ER 30 MG TAB PO SCH (10:36)
[2016-09-23] MEDS: LOSARTAN POTASSIUM 50 MG TAB PO SCH (10:36)
[2016-09-23] MEDS: MINOXIDIL 10 MG TAB PO SCH ×2 (10:36→21:57)
[2016-09-23] MEDS: METOPROLOL TARTRATE 50 MG TAB PO SCH ×2 (10:37→21:58)
[2016-09-23] MEDS: PANTOPRAZOLE 40 MG TAB PO SCH (10:37)
[2016-09-23] MEDS: risperiDONE 1 MG TAB PO SCH (10:38)
[2016-09-23 12:34] VITALS: BP 150/79
[2016-09-23] MEDS: ONDANSETRON HCL 4 MG/2 ML VIAL IV PRN ×2 (15:46→20:04)
[2016-09-23 17:09] VITALS: BP_SYST 119; BP_SYST 131; BP_DIAS 61; BP_DIAS 64
[2016-09-23 22:00] VITALS: BP 129/73
[2016-09-24] MEDS: diphenhdrAMINE HCL 50 MG/1 ML VL IV PRN ×6 (00:38→23:01)
[2016-09-24] MEDS: ONDANSETRON HCL 4 MG/2 ML VIAL IV PRN ×5 (00:38→23:01)
[2016-09-24] MEDS: MORPHINE SULF INJ 2 MG/ML SYRINGE 1ML IV PRN ×5 (00:38→23:01)
[2016-09-24] MEDS: TEMAZEPAM 15 MG CAP PO PRN (01:16)
[2016-09-24] MEDS: SODIUM CHLOR 0.9% PF (SALINE LOCK) 10ML VIAL IV SCH ×3 (05:38→22:16)
[2016-09-24 06:00] VITALS: BP 131/78
[2016-09-24 06:41] LABS: INR 1.15 (0.9-1.15); Partial Thromboplastin Time 27.1 sec (22.64-33.71)
[2016-09-24 06:44] LABS: Prothrombin Time 12.6 sec (9.37-12.3)
[2016-09-24] MEDS: CALCIUM ACETATE 667 MG CAP PO SCH ×3 (08:00→18:09)
[2016-09-24 08:47] VITALS: BP 120/76
[2016-09-24] MEDS: cloNIDine HCL 0.1 MG TAB PO SCH ×2 (10:00→22:15)
[2016-09-24] MEDS: MINOXIDIL 10 MG TAB PO SCH ×2 (10:00→22:16)
[2016-09-24] MEDS: LOSARTAN POTASSIUM 50 MG TAB PO SCH (10:00)
[2016-09-24] MEDS: B-COMPLEX W/ C & FOLIC ACID(NEPHROVITE TAB) PO SCH (10:00)
[2016-09-24] MEDS: CHOLECALCIFEROL (VITD3) 1,000 UNIT TAB PO SCH (10:00)
[2016-09-24] MEDS: METOPROLOL TARTRATE 50 MG TAB PO SCH ×2 (10:00→22:16)
[2016-09-24] MEDS: NIFEdipine ER 30 MG TAB PO SCH (10:00)
[2016-09-24] MEDS: PANTOPRAZOLE 40 MG TAB PO SCH (10:00)
[2016-09-24] MEDS: CINACALCET HYDROCHLORIDE 30 MG TAB PO SCH (10:00)
[2016-09-24] MEDS: risperiDONE 1 MG TAB PO SCH (10:00)
[2016-09-24] MEDS ORDERED: IODIXANOL 320MG/ML 100ML BTL IV ONE (15:51)
[2016-09-24] MEDS ORDERED: LIDOCAINE 2%HCL (LOCAL ANESTH.) INJ 20ML MDV ONE (15:51)
[2016-09-24] MEDS ORDERED: fentaNYL CITRATE 100 MCG/2 ML VL ONE (16:09)
[2016-09-24] MEDS ORDERED: MIDAZOLAM HCL 1MG/1ML-2 ML VIAL ONE (16:09)
[2016-09-24 22:00] VITALS: BP 142/71
[2016-09-25] MEDS: TEMAZEPAM 15 MG CAP PO PRN (01:44)
[2016-09-25] MEDS: ONDANSETRON HCL 4 MG/2 ML VIAL IV PRN ×3 (03:22→13:01)
[2016-09-25] MEDS: diphenhdrAMINE HCL 50 MG/1 ML VL IV PRN ×3 (03:22→13:00)
[2016-09-25] MEDS: MORPHINE SULF INJ 2 MG/ML SYRINGE 1ML IV PRN ×3 (03:22→13:00)
[2016-09-25 06:00] VITALS: BP 123/73
[2016-09-25] MEDS: SODIUM CHLOR 0.9% PF (SALINE LOCK) 10ML VIAL IV SCH ×2 (06:09→14:06)
[2016-09-25] MEDS: CALCIUM ACETATE 667 MG CAP PO SCH ×2 (08:14→12:00)
[2016-09-25 09:00] VITALS: BP 145/80
[2016-09-25] MEDS: CINACALCET HYDROCHLORIDE 30 MG TAB PO SCH (10:00)
[2016-09-25] MEDS: cloNIDine HCL 0.1 MG TAB PO SCH (11:57)
[2016-09-25] MEDS: MINOXIDIL 10 MG TAB PO SCH (11:57)
[2016-09-25] MEDS: LOSARTAN POTASSIUM 50 MG TAB PO SCH (11:57)
[2016-09-25] MEDS: METOPROLOL TARTRATE 50 MG TAB PO SCH (11:58)
[2016-09-25] MEDS: B-COMPLEX W/ C & FOLIC ACID(NEPHROVITE TAB) PO SCH (11:58)
[2016-09-25] MEDS: PANTOPRAZOLE 40 MG TAB PO SCH (11:58)
[2016-09-25] MEDS: NIFEdipine ER 30 MG TAB PO SCH (11:58)
[2016-09-25] MEDS: risperiDONE 1 MG TAB PO SCH (11:59)
[2016-09-25] MEDS: CHOLECALCIFEROL (VITD3) 1,000 UNIT TAB PO SCH (11:59)
[2016-09-25 13:00] VITALS: BP 140/80
[2016-09-25] MEDS ORDERED: EPOETIN ALFA 2,000 UNIT/1 ML VIAL IV ONE (13:00)
[2016-09-25] MEDS ORDERED: EPOETIN ALFA 3,000 UNIT/1 ML VIAL IV ONE (13:00)
[2016-09-25] MEDS ORDERED: SODIUM CHL 0.9% 1000 ML BAG XX ONE (13:00)
[2016-09-25 15:20] VITALS: BP 140/80
[2016-09-25] MEDS ORDERED: ONDANSETRON HCL 4 MG/2 ML VIAL ONE (17:09)
== END 2016-09-25 16:32 | disposition home or self-care (01) | DRG 286 ==
LOC: ER 04:50 → TELE 04:51 → TELE-E-ADS 10:10 → TELE-EAST 11:41
PROVIDERS: ADMIT Internal Medicine; ATTEND Internal Medicine Pulmonary Disease
PROC: 5A1D60Z (ICD-10-PCS; 2016-09-22)
PROC: B2111ZZ Fluoroscopy of Multiple Coronary Arteries using Low Osmolar Contrast (ICD-10-PCS; principal; 2016-09-24)
PROC: 4A023N7 Measurement of Cardiac Sampling and Pressure, Left Heart, Percutaneous Approach (ICD-10-PCS; 2016-09-24)
PROC: B2151ZZ Fluoroscopy of Left Heart using Low Osmolar Contrast (ICD-10-PCS; 2016-09-24)
DX: I13.2 Hypertensive heart and chronic kidney disease with heart failure and with stage 5 chronic kidney disease, or end stage renal disease (principal); N18.6 End stage renal disease; I50.33 Acute on chronic diastolic (congestive) heart failure; E44.1 Mild protein-calorie malnutrition; Z94.0 Kidney transplant status; D63.8 Anemia in other chronic diseases classified elsewhere; F41.9 Anxiety disorder, unspecified; G40.909 Epilepsy, unspecified, not intractable, without status epilepticus; I27.2 Other secondary pulmonary hypertension; I42.9 Cardiomyopathy, unspecified; Z82.49 Family history of ischemic heart disease and other diseases of the circulatory system; Z68.25 Body mass index [BMI] 25.0-25.9, adult; Z86.73 Personal history of transient ischemic attack (TIA), and cerebral infarction without residual deficits; Z99.2 Dependence on renal dialysis
CPT/HCPCS: 36415; 71010; 80053; 83735; 83880; 84484; 85007; 85025; 85027; 85610; 85730; 87081; 90935; 93005; 94761; 96374; 96375; 96376; 99152; J2250; J2405; Q4081; Q9967

== ENCOUNTER 2016-10-02 22:43 | Emergency (ER) | payer MEDICARE, MEDICAID ==
[~2016-10-02] VITALS: Ht 165.1 cm; Wt 63.5 kg
[~2016-10-02 22:43] MED LIST changes: -CINA30TA2 PO
[2016-10-03] VITALS: BP 133/75
== END 2016-10-03 02:08 | disposition home or self-care (01) ==
LOC: ER 22:46
DX: S40.011A Contusion of right shoulder, initial encounter (principal); I13.2 Hypertensive heart and chronic kidney disease with heart failure and with stage 5 chronic kidney disease, or end stage renal disease; I50.9 Heart failure, unspecified; F12.10 Cannabis abuse, uncomplicated; N18.6 End stage renal disease; Z99.2 Dependence on renal dialysis; Z79.899 Other long term (current) drug therapy; W18.39XA Other fall on same level, initial encounter; Y93.89 Activity, other specified; Y92.89 Other specified places as the place of occurrence of the external cause; Y99.8 Other external cause status
CPT/HCPCS: 73090; 93971

== ENCOUNTER 2016-10-08 03:33 | Inpatient (IN) | payer MEDICARE, MEDICAID ==
[~2016-10-08] VITALS: Ht 165.1 cm; Wt 65.8 kg
[2016-10-08] MEDS ORDERED: cloNIDine HCL 0.1 MG TAB ONE (03:54)
[2016-10-08] MEDS ORDERED: cloNIDine HCL 0.1 MG TAB PO ONE (04:00)
[2016-10-08 04:22] LABS: Basophils # (auto) 0 uL; CONDITION Y; DEFINITIVE SEE PRINTOUT; Eosinophils # (auto) 0.4 uL; Eosinophils % (auto) 5.6 % (0.0-7.0); Hematocrit 26.8 % (41.0-53.0); Hemoglobin 8.8 g/dL (13.5-17.5); Lymphocytes # (auto) 0.6 uL; Lymphocytes % (auto) 7.6 % (10.0-50.0); Mean Corpuscular Hemoglobin 28.5 pg (28.0-32.0); Mean Corpuscular Hgb Conc. 32.7 g/dL (32.0-36.0); Mean Corpuscular Volume 87.1 fL (80.0-100.0); Mean Platelet Volume 7.7 fL (7.4-10.4); Monocytes # (auto) 0.5 uL; Monocytes % (auto) 6.9 % (0.0-12.0); Neutrophils # (auto) 5.8 uL; Neutrophils % (auto) 79.9 % (37.0-80.0); Platelet Count (auto) 198 10^3/uL (140-450); Red Cell Distribution Width 19.1 % (11.6-16.0); White Blood Cell 7.3 10^3/uL (4.4-10.8)
[2016-10-08 04:37] LABS: Albumin 3.5 g/dL (3.4-5.0); BUN/Creatinine Ratio 4.8; Calcium 9.3 mg/dL (8.5-10.1); Potassium 4.9 mmol/L (3.5-5.1)
[2016-10-08 04:40] LABS: INR 1.17 (0.9-1.15); Partial Thromboplastin Time 28.6 sec (22.64-33.71); Prothrombin Time 12.8 sec (9.37-12.3)
[2016-10-08 04:43] LABS: Bilirubin, Total 0.7 mg/dL (0.2-1.0); Total Protein 6.9 g/dL (6.4-8.2)
[2016-10-08] MEDS ORDERED: HYDROmorphone HCL 2 MG/ML VL ONE (05:12)
[2016-10-08] MEDS ORDERED: HYDROmorphone HCL 2 MG/ML VL IV ONE (05:30)
[2016-10-08] MEDS ORDERED: ONDANSETRON HCL 4 MG/2 ML VIAL IV ONE (06:30)
[2016-10-08] MEDS ORDERED: MORPHINE SULFATE 4 MG/ML SYRG IV ONE ×2 (06:30→12:45)
[2016-10-08] MEDS ORDERED: hydrALAZINE HCL 20 MG/ML VL IV ONE (06:30)
[2016-10-08] MEDS ORDERED: MORPHINE SULF INJ 2 MG/ML SYRINGE 1ML IV PRN ×2 (07:45)
[2016-10-08] MEDS ORDERED: NITROGLYCERIN 0.4 MG SL TAB SL PRN (07:45)
[2016-10-08] MEDS ORDERED: cloNIDine HCL 0.1 MG TAB PO PRN (07:45)
[2016-10-08] MEDS ORDERED: LACTULOSE 20Gm/30ML SOLN PO PRN (07:45)
[2016-10-08] MEDS ORDERED: METOCLOPRAMIDE HCL 10 MG TAB PO PRN (07:45)
[2016-10-08] MEDS: CALCIUM ACETATE 667 MG CAP PO SCH ×3 (08:12→18:00)
[2016-10-08 08:22] LABS: Basophils # (auto) 0 uL; Basophils % (auto) 0.4 % (0.0-2.0); CONDITION Y; DEFINITIVE SEE PRINTOUT; Eosinophils # (auto) 0.4 uL; Eosinophils % (auto) 5.5 % (0.0-7.0); Hematocrit 26.4 % (41.0-53.0); Hemoglobin 8.6 g/dL (13.5-17.5); Lymphocytes # (auto) 0.6 uL; Mean Corpuscular Hemoglobin 28.2 pg (28.0-32.0); Mean Corpuscular Hgb Conc. 32.7 g/dL (32.0-36.0); Mean Corpuscular Volume 86.2 fL (80.0-100.0); Mean Platelet Volume 7.7 fL (7.4-10.4); Monocytes # (auto) 0.7 uL; Monocytes % (auto) 9.2 % (0.0-12.0); Neutrophils # (auto) 5.7 uL; Neutrophils % (auto) 76.9 % (37.0-80.0); Platelet Count (auto) 197 10^3/uL (140-450); Red Cell Distribution Width 19.2 % (11.6-16.0); White Blood Cell 7.4 10^3/uL (4.4-10.8)
[2016-10-08 08:45] LABS: Albumin 3.6 g/dL (3.4-5.0); Calcium 9.2 mg/dL (8.5-10.1); Potassium 5.4 mmol/L (3.5-5.1)
[2016-10-08 08:54] LABS: BUN/Creatinine Ratio 4.6; Bilirubin, Total 0.7 mg/dL (0.2-1.0)
[2016-10-08 09:23] LABS: Anisocytosis Slight; Platelet Estimate Adequate
[2016-10-08] MEDS: METOPROLOL TARTRATE 50 MG TAB PO SCH (09:55)
[2016-10-08] MEDS: MINOXIDIL 10 MG TAB PO SCH ×2 (09:55→22:00)
[2016-10-08] MEDS: LOSARTAN POTASSIUM 50 MG TAB PO SCH (09:56)
[2016-10-08] MEDS: NIFEdipine ER 30 MG TAB PO SCH (09:56)
[2016-10-08] MEDS: CHOLECALCIFEROL (VITD3) 1,000 UNIT TAB PO SCH (09:58)
[2016-10-08] MEDS: risperiDONE 1 MG TAB PO SCH (09:58)
[2016-10-08] MEDS: ENOXAPARIN SOD 30 MG/0.3 ML SYRINGE SC SCH (09:58)
[2016-10-08] MEDS: PANTOPRAZOLE 40 MG/10 ML VIAL IV SCH (09:59)
[2016-10-08] MEDS ORDERED: ENOXAPARIN SOD 40 MG/0.4 ML SYRINGE SC SCH (10:00)
[2016-10-08] MEDS: ONDANSETRON HCL 4 MG/2 ML VIAL IV PRN ×2 (10:24→14:41)
[2016-10-08] MEDS ORDERED: HYDROcodone-ACET 5/325MG TAB PO PRN (11:15)
[2016-10-08] MEDS: MORPHINE SULFATE 4 MG/ML SYRG IV PRN ×2 (12:20→16:19)
[2016-10-08] MEDS ORDERED: MORPHINE SULFATE 4 MG/ML SYRG IM ONE (12:30)
[2016-10-08] MEDS ORDERED: diphenhdrAMINE HCL 50 MG/1 ML VL IV ONE ×2 (13:15→17:30)
[2016-10-08] MEDS ORDERED: HEPARIN 1,000 UNITS/ml 1ML VIAL ONE ×2 (17:13→17:16)
[2016-10-08] MEDS ORDERED: EPOETIN ALFA 10,000 UNIT/1 ML VIAL ONE (17:14)
[2016-10-08] MEDS ORDERED: EPOETIN ALFA 10,000 UNIT/1 ML VIAL IV ONE (17:30)
[2016-10-08] MEDS ORDERED: HEPARIN SODIUM (PORCINE) 5000 UNITS/ML 1ML VIAL IV ONE ×2 (17:30)
[2016-10-09] MEDS: METOPROLOL TARTRATE 50 MG TAB PO SCH ×2 (00:17→09:53)
[2016-10-09] MEDS ORDERED: diphenhdrAMINE HCL 50 MG/1 ML VL ONE (02:30)
[2016-10-09] MEDS ORDERED: diphenhdrAMINE HCL 50 MG/1 ML VL IV ONE (03:15)
[2016-10-09] MEDS: MORPHINE SULFATE 4 MG/ML SYRG IV PRN ×2 (08:31→16:00)
[2016-10-09] MEDS: ONDANSETRON HCL 4 MG/2 ML VIAL IV PRN ×2 (08:36→16:00)
[2016-10-09] MEDS: CALCIUM ACETATE 667 MG CAP PO SCH ×3 (08:36→18:45)
[2016-10-09] MEDS: MINOXIDIL 10 MG TAB PO SCH (09:53)
[2016-10-09] MEDS: PANTOPRAZOLE 40 MG/10 ML VIAL IV SCH (09:53)
[2016-10-09] MEDS: LOSARTAN POTASSIUM 50 MG TAB PO SCH (09:53)
[2016-10-09] MEDS: NIFEdipine ER 30 MG TAB PO SCH (09:54)
[2016-10-09] MEDS: risperiDONE 1 MG TAB PO SCH (09:54)
[2016-10-09] MEDS: ENOXAPARIN SOD 30 MG/0.3 ML SYRINGE SC SCH (09:54)
[2016-10-09] MEDS: CHOLECALCIFEROL (VITD3) 1,000 UNIT TAB PO SCH (09:54)
[2016-10-09 11:56] LABS: Basophils # (auto) 0 uL; Basophils % (auto) 0.1 % (0.0-2.0); CONDITION Y; DEFINITIVE SEE PRINTOUT; Eosinophils # (auto) 0.6 uL; Eosinophils % (auto) 8.4 % (0.0-7.0); Hematocrit 27.3 % (41.0-53.0); Lymphocytes # (auto) 0.5 uL; Lymphocytes % (auto) 6.6 % (10.0-50.0); Mean Corpuscular Hemoglobin 28.6 pg (28.0-32.0); Mean Corpuscular Volume 86.8 fL (80.0-100.0); Mean Platelet Volume 7.4 fL (7.4-10.4); Monocytes # (auto) 0.7 uL; Monocytes % (auto) 9.9 % (0.0-12.0); Neutrophils # (auto) 5.4 uL; Platelet Count (auto) 216 10^3/uL (140-450); Red Cell Distribution Width 19.3 % (11.6-16.0); White Blood Cell 7.2 10^3/uL (4.4-10.8)
[2016-10-09 12:16] LABS: Albumin 3.5 g/dL (3.4-5.0); Bilirubin, Total 1.4 mg/dL (0.2-1.0); Calcium 9.8 mg/dL (8.5-10.1); Potassium 4.8 mmol/L (3.5-5.1)
[2016-10-09] MEDS ORDERED: SODIUM CHL 0.9% 1000 ML BAG XX ONE (15:15)
[2016-10-09] MEDS ORDERED: EPOETIN ALFA 10,000 UNIT/1 ML VIAL IV ONE (15:15)
[2016-10-09 18:40] VITALS: BP 156/78
== END 2016-10-09 19:28 | disposition home or self-care (01) | DRG 314 ==
LOC: ER 03:34 → TELE 03:35
PROVIDERS: ADMIT Family Medicine; ATTEND Internal Medicine Pulmonary Disease
DX: T82.7XXA Infection and inflammatory reaction due to other cardiac and vascular devices, implants and grafts, initial encounter (principal); N18.6 End stage renal disease; I13.2 Hypertensive heart and chronic kidney disease with heart failure and with stage 5 chronic kidney disease, or end stage renal disease; E87.8 Other disorders of electrolyte and fluid balance, not elsewhere classified; Z94.0 Kidney transplant status; I50.9 Heart failure, unspecified; Z83.3 Family history of diabetes mellitus; Z82.49 Family history of ischemic heart disease and other diseases of the circulatory system; Z86.73 Personal history of transient ischemic attack (TIA), and cerebral infarction without residual deficits; Y92.89 Other specified places as the place of occurrence of the external cause; Z99.2 Dependence on renal dialysis; Y83.9 Surgical procedure, unspecified as the cause of abnormal reaction of the patient, or of later complication, without mention of misadventure at the time of the procedure
CPT/HCPCS: 36415; 80053; 83605; 85025; 85379; 85610; 85730; 87040; 90935; 93005; 93971; 94761; 96374; 96375; 96376; C9113; J0885; J2405

== ENCOUNTER 2016-11-02 14:18 | Inpatient (IN) | payer MEDICARE, MEDICAID ==
[~2016-11-02] VITALS: Ht 1 cm; Wt 70.7 kg
[2016-11-02 14:51] LABS: Basophils # (auto) 0 uL; CONDITION Y; DEFINITIVE SEE PRINTOUT; Eosinophils # (auto) 0.7 uL; Eosinophils % (auto) 13.5 % (0.0-7.0); Hematocrit 27.1 % (41.0-53.0); Lymphocytes # (auto) 0.4 uL; Lymphocytes % (auto) 9.3 % (10.0-50.0); Mean Corpuscular Hemoglobin 29.3 pg (28.0-32.0); Mean Corpuscular Hgb Conc. 33.3 g/dL (32.0-36.0); Mean Platelet Volume 7.5 fL (7.4-10.4); Monocytes # (auto) 0.4 uL; Monocytes % (auto) 8.6 % (0.0-12.0); Neutrophils # (auto) 3.3 uL; Neutrophils % (auto) 68.6 % (37.0-80.0); Platelet Count (auto) 181 10^3/uL (140-450); Red Cell Distribution Width 19.5 % (11.6-16.0); White Blood Cell 4.9 10^3/uL (4.4-10.8)
[2016-11-02 15:10] LABS: Calcium 9.5 mg/dL (8.5-10.1); Magnesium 2.4 mg/dL (1.6-2.6)
[2016-11-02 15:18] LABS: BUN/Creatinine Ratio 5.8
[2016-11-02 15:23] LABS: INR 1.04 (0.9-1.15); Partial Thromboplastin Time 26.7 sec (22.64-33.71); Prothrombin Time 11.3 sec (9.37-12.3)
[2016-11-02 15:25] LABS: Potassium 6.3 mmol/L (3.5-5.1)
[2016-11-02 15:27] LABS: Albumin 3.6 g/dL (3.4-5.0); Bilirubin, Direct 0.4 mg/dL (0-0.2); Bilirubin, Total 0.9 mg/dL (0.2-1.0); Total Protein 7.1 g/dL (6.4-8.2)
[2016-11-02] MEDS ORDERED: InsuLIN REG 1unit/0.01ml Soln (100units/ml) IV ONE (15:45)
[2016-11-02] MEDS ORDERED: DEXTROSE (50%) 50ML SYRG IV ONE ×2 (15:45→17:15)
[2016-11-02] MEDS ORDERED: NITROGLYCERIN 0.4 MG SL TAB SL PRN (16:00)
[2016-11-02] MEDS ORDERED: MORPHINE SULF INJ 2 MG/ML SYRINGE 1ML IV PRN (16:00)
[2016-11-02] MEDS ORDERED: SODIUM POLYSTYRENE SULF 15GM/60ML SUSP PO ONE (16:15)
[2016-11-02] MEDS ORDERED: traMADol HCL 50 MG TAB PO PRN (16:15)
[2016-11-02] MEDS ORDERED: ALBUTEROL SULF 2.5 MG/0.5ML(0.5%) NEB SOLN NEB ONE (16:15)
[2016-11-02] MEDS ORDERED: CALCIUM GLUC 4.65meq/50ml D5AE 50 ML IV ONE (16:15)
[2016-11-02] MEDS ORDERED: METOCLOPRAMIDE HCL 10 MG TAB PO PRN (16:15)
[2016-11-02] MEDS ORDERED: MORPHINE SULF INJ 2 MG/ML SYRINGE 1ML IV ONE (16:30)
[2016-11-02] MEDS ORDERED: ONDANSETRON HCL 4 MG/2 ML VIAL IV ONE (16:30)
[2016-11-02] MEDS ORDERED: EPOETIN ALFA 10,000 UNIT/1 ML VIAL IV ONE (17:30)
[2016-11-02] MEDS: CALCIUM ACETATE 667 MG CAP PO SCH (17:48)
[2016-11-02] MEDS: MORPHINE SULF INJ 2 MG/ML SYRINGE 1ML IV PRN (18:55)
[2016-11-02] MEDS: ONDANSETRON HCL 4 MG/2 ML VIAL IV PRN (18:55)
[2016-11-02 18:57] LABS: B-Type Natriuretic Peptide 2425.67 pg/mL (0-100)
[2016-11-02] MEDS ORDERED: diphenhdrAMINE HCL 50 MG/1 ML VL IV ONE (20:00)
[2016-11-02] MEDS ORDERED: diphenhdrAMINE HCL 50 MG/1 ML VL ONE (20:07)
[2016-11-02] MEDS: cloNIDine HCL 0.1 MG TAB PO PRN (21:25)
[2016-11-02] MEDS: cloNIDine HCL 0.1 MG TAB PO SCH (21:45)
[2016-11-03] MEDS: MORPHINE SULF INJ 2 MG/ML SYRINGE 1ML IV PRN ×5 (00:14→20:34)
[2016-11-03] MEDS ORDERED: diphenhdrAMINE HCL 50 MG/1 ML VL IV ONE (03:30)
[2016-11-03 04:04] LABS: Basophils # (auto) 0 uL; Basophils % (auto) 0.7 % (0.0-2.0); Eosinophils # (auto) 0.5 uL; Eosinophils % (auto) 11.2 % (0.0-7.0); Hematocrit 25.4 % (41.0-53.0); Hemoglobin 8.6 g/dL (13.5-17.5); Lymphocytes # (auto) 0.5 uL; Lymphocytes % (auto) 10.6 % (10.0-50.0); Mean Corpuscular Hemoglobin 29.9 pg (28.0-32.0); Mean Corpuscular Hgb Conc. 33.7 g/dL (32.0-36.0); Mean Corpuscular Volume 88.8 fL (80.0-100.0); Mean Platelet Volume 7.3 fL (7.4-10.4); Monocytes # (auto) 0.4 uL; Monocytes % (auto) 8.9 % (0.0-12.0); Neutrophils # (auto) 3.2 uL; Neutrophils % (auto) 68.6 % (37.0-80.0); Platelet Count (auto) 148 10^3/uL (140-450); Red Cell Distribution Width 18.9 % (11.6-16.0); White Blood Cell 4.6 10^3/uL (4.4-10.8)
[2016-11-03 04:24] LABS: BUN/Creatinine Ratio 4.9; Calcium 9.4 mg/dL (8.5-10.1); Potassium 5.2 mmol/L (3.5-5.1)
[2016-11-03] MEDS: ONDANSETRON HCL 4 MG/2 ML VIAL IV PRN ×4 (04:24→20:33)
[2016-11-03] MEDS: LABETALOL HCL 5 MG/ML ML 20ML VIAL IV PRN ×2 (08:54→12:53)
[2016-11-03] MEDS: CALCIUM ACETATE 667 MG CAP PO SCH ×3 (08:54→18:13)
[2016-11-03] MEDS ORDERED: diphenhdrAMINE HCL 50 MG/1 ML VL IM ONE (09:30)
[2016-11-03] MEDS: cloNIDine HCL 0.1 MG TAB PO SCH ×2 (10:00→21:55)
[2016-11-03] MEDS: PANTOPRAZOLE 40 MG TAB PO SCH (10:00)
[2016-11-03] MEDS: METOPROLOL SUCCINATE XL 50 MG TAB PO SCH (10:01)
[2016-11-03] MEDS: risperiDONE 1 MG TAB PO SCH (10:02)
[2016-11-03] MEDS: NIFEdipine ER 30 MG TAB PO SCH (10:25)
[2016-11-03] MEDS: cloNIDine HCL 0.1 MG TAB PO PRN (14:08)
[2016-11-03] MEDS ORDERED: HYDROmorphone HCL 2 MG/ML VL IV ONE (14:15)
[2016-11-03] MEDS: MINOXIDIL 10 MG TAB PO SCH ×2 (14:30→21:54)
[2016-11-03] MEDS: diphenhdrAMINE HCL 50 MG/1 ML VL IV PRN ×2 (17:49→21:55)
[2016-11-03 19:02] VITALS: BP 179/113
[2016-11-03] MEDS ORDERED: cloNIDine HCL 0.1 MG TAB PO PRN (19:15)
[2016-11-03] MEDS ORDERED: TRAM50TA2 PO (19:26)
[2016-11-03] MEDS ORDERED: CINA30TA2 PO (19:26)
[2016-11-03] MEDS ORDERED: ACET-1158 PO (19:26)
[2016-11-03] MEDS ORDERED: CLON0.2T PO (19:26)
[2016-11-03 20:00] VITALS: BP 135/75
[2016-11-03 22:00] VITALS: BP 135/75
[2016-11-04] MEDS: MORPHINE SULF INJ 2 MG/ML SYRINGE 1ML IV PRN ×2 (01:07→05:28)
[2016-11-04] MEDS: diphenhdrAMINE HCL 50 MG/1 ML VL IV PRN ×3 (02:00→10:45)
[2016-11-04 05:00] VITALS: BP 147/80
[2016-11-04] MEDS: ONDANSETRON HCL 4 MG/2 ML VIAL IV PRN (05:28)
[2016-11-04 06:35] LABS: BUN/Creatinine Ratio 5.7; Calcium 8.8 mg/dL (8.5-10.1)
[2016-11-04 06:43] LABS: Potassium 6.2 mmol/L (3.5-5.1)
[2016-11-04] MEDS ORDERED: CALCIUM CHL 100MG/ML 1,000 MG in D5W 5% 100 ML IV ONE (07:45)
[2016-11-04] MEDS ORDERED: SODIUM BICARBONATE 8.4 % INJ 50ML VIAL IV ONE (07:45)
[2016-11-04] MEDS ORDERED: DEXTROSE (50%) 50ML SYRG IV ONE (07:45)
[2016-11-04] MEDS ORDERED: InsuLIN REG 1unit/0.01ml Soln (100units/ml) IV ONE (07:45)
[2016-11-04] MEDS ORDERED: SODIUM POLYSTYRENE SULF 15GM/60ML SUSP PO ONE (07:45)
[2016-11-04] MEDS: CALCIUM ACETATE 667 MG CAP PO SCH ×2 (08:00→12:00)
[2016-11-04 09:00] VITALS: BP 151/84
[2016-11-04] MEDS ORDERED: SODIUM CHL 0.9% 1000 ML BAG XX ONE (09:00)
[2016-11-04] MEDS ORDERED: EPOETIN ALFA 10,000 UNIT/1 ML VIAL IV ONE (09:00)
[2016-11-04] MEDS: PANTOPRAZOLE 40 MG TAB PO SCH (10:00)
[2016-11-04] MEDS: NIFEdipine ER 30 MG TAB PO SCH (10:00)
[2016-11-04] MEDS: MINOXIDIL 10 MG TAB PO SCH (10:00)
[2016-11-04] MEDS: METOPROLOL SUCCINATE XL 50 MG TAB PO SCH (10:00)
[2016-11-04] MEDS: risperiDONE 1 MG TAB PO SCH (10:00)
[2016-11-04] MEDS: cloNIDine HCL 0.1 MG TAB PO SCH (10:00)
[2016-11-04 11:26] VITALS: BP 142/77
[2016-11-04 17:34] VITALS: BP 145/84
== END 2016-11-04 15:37 | disposition home or self-care (01) | DRG 291 ==
LOC: ER 14:25 → TELE 14:26 → CENTRAL 11-03 18:19 → TELE-CENTR 11-03 18:21
PROVIDERS: ADMIT Internal Medicine; ATTEND Internal Medicine
PROC: 5A1D60Z (ICD-10-PCS; principal; 2016-11-02)
DX: I13.2 Hypertensive heart and chronic kidney disease with heart failure and with stage 5 chronic kidney disease, or end stage renal disease (principal); I50.33 Acute on chronic diastolic (congestive) heart failure; N18.6 End stage renal disease; I42.9 Cardiomyopathy, unspecified; Z94.0 Kidney transplant status; F41.9 Anxiety disorder, unspecified; D63.8 Anemia in other chronic diseases classified elsewhere; E87.5 Hyperkalemia; Z79.899 Other long term (current) drug therapy; Z82.49 Family history of ischemic heart disease and other diseases of the circulatory system; Z83.3 Family history of diabetes mellitus; Z86.73 Personal history of transient ischemic attack (TIA), and cerebral infarction without residual deficits; Z91.19 Patient's noncompliance with other medical treatment and regimen; Z99.2 Dependence on renal dialysis; Z91.15 Patient's noncompliance with renal dialysis
CPT/HCPCS: 36415; 71010; 80048; 80076; 82962; 83605; 83735; 83880; 84484; 85025; 85610; 85730; 87040; 87077; 87081; 87186; 90935; 93005; 94640; J0610; J0885; J1815; J2405; J7060

== ENCOUNTER 2016-11-09 10:18 | Emergency (ER) | payer MEDICARE, MEDICAID ==
[~2016-11-09] VITALS: Ht 165.1 cm; Wt 63.5 kg
[~2016-11-09 10:18] MED LIST changes: +ACET-1158 PO; +CINA30TA2 PO; +CLON0.2T PO; -MET10T PO; +TRAM50TA2 PO
[2016-11-09] MEDS ORDERED: cloNIDine HCL 0.1 MG TAB PO ONE ×2 (11:00→15:45)
[2016-11-09] MEDS ORDERED: ONDANSETRON HCL 4 MG/2 ML VIAL IV ONE ×3 (11:00→16:00)
[2016-11-09] MEDS ORDERED: MORPHINE SULF INJ 2 MG/ML SYRINGE 1ML IV ONE ×3 (11:00→16:00)
[2016-11-09] MEDS ORDERED: LABETALOL HCL 5 MG/ML 4ML SYRINGE IV ONE ×2 (11:00→12:45)
[2016-11-09 11:15] LABS: Basophils # (auto) 0 uL; Basophils % (auto) 0.4 % (0.0-2.0); CONDITION Y; Eosinophils # (auto) 0.6 uL; Eosinophils % (auto) 9.3 % (0.0-7.0); Hematocrit 27.5 % (41.0-53.0); Hemoglobin 9.3 g/dL (13.5-17.5); Lymphocytes # (auto) 0.5 uL; Lymphocytes % (auto) 8.3 % (10.0-50.0); Mean Corpuscular Hgb Conc. 33.7 g/dL (32.0-36.0); Mean Platelet Volume 7.4 fL (6.9-10.8); Monocytes # (auto) 0.5 uL; Monocytes % (auto) 8.7 % (0.0-12.0); Neutrophils # (auto) 4.6 uL; Neutrophils % (auto) 73.3 % (37.0-80.0); Platelet Count (auto) 222 10^3/uL (140-450); Red Cell Distribution Width 18.8 % (11.8-14.3); SUSPECT SEE PRINTOUT; White Blood Cell 6.2 10^3/uL (4.4-10.8)
[2016-11-09 11:51] LABS: Albumin 3.6 g/dL (3.4-5.0); BUN/Creatinine Ratio 4.5; Bilirubin, Total 0.7 mg/dL (0.2-1.0); Calcium 9.9 mg/dL (8.5-10.1); Potassium 5.5 mmol/L (3.5-5.1); Total Protein 7.4 g/dL (6.4-8.2)
[2016-11-09] MEDS ORDERED: ALBUTEROL SULF 2.5 MG/0.5ML(0.5%) NEB SOLN NEB STA ×2 (12:17→13:22)
[2016-11-09] MEDS ORDERED: InsuLIN REG 1unit/0.01ml Soln (100units/ml) IV ONE ×2 (12:30→13:30)
[2016-11-09] MEDS ORDERED: CALCIUM GLUC 4.65meq/50ml D5AE 50 ML IV ONE (12:30)
[2016-11-09] MEDS ORDERED: SODIUM BICARBONATE 8.4% INJ 50ML SYRINGE IV ONE (12:30)
[2016-11-09] MEDS ORDERED: SODIUM POLYSTYRENE SULF 15GM/60ML SUSP PO ONE (12:30)
[2016-11-09] MEDS ORDERED: DEXTROSE (50%) 50ML SYRG IV ONE ×2 (12:30→13:30)
[2016-11-09] MEDS ORDERED: diphenhdrAMINE HCL 50 MG/1 ML VL ONE (15:27)
[2016-11-09] MEDS ORDERED: LABETALOL HCL 5 MG/ML ML 20ML VIAL IV ONE (15:45)
[2016-11-09] MEDS ORDERED: diphenhdrAMINE HCL 50 MG/1 ML VL IV ONE (15:45)
[2016-11-09] MEDS ORDERED: MINOXIDIL 10 MG TAB PO ONE (16:15)
[2016-11-09 17:20] VITALS: BP 172/110
== END 2016-11-09 17:44 | disposition home or self-care (01) ==
LOC: ER 10:18 → EDBD 10:18 → ER 14:56
DX: I13.2 Hypertensive heart and chronic kidney disease with heart failure and with stage 5 chronic kidney disease, or end stage renal disease (principal); I50.9 Heart failure, unspecified; N18.6 End stage renal disease; E87.5 Hyperkalemia; Z79.899 Other long term (current) drug therapy; D64.9 Anemia, unspecified
CPT/HCPCS: 36415; 71010; 80053; 84132; 84484; 85025; 94640; 94761; 96365; 96375; 96376; 99285; J0610; J1200; J1815; J2270; J2405; J3490; J7042

== ENCOUNTER 2016-12-03 15:51 | Emergency (ER) | payer MEDICARE, MEDICAID ==
[~2016-12-03] VITALS: Ht 165.1 cm; Wt 63.5 kg
[2016-12-03 16:39] LABS: Basophils # (auto) 0.1 uL; Basophils % (auto) 0.8 % (0.0-2.0); Eosinophils # (auto) 0.5 uL; Hemoglobin 9.5 g/dL (13.5-17.5); Lymphocytes # (auto) 0.5 uL; Lymphocytes % (auto) 7.6 % (10.0-50.0); Mean Corpuscular Hemoglobin 30.4 pg (28.0-32.0); Mean Corpuscular Hgb Conc. 33.9 g/dL (32.0-36.0); Mean Corpuscular Volume 89.9 fL (80.0-100.0); Mean Platelet Volume 7.5 fL (6.9-10.8); Monocytes # (auto) 0.7 uL; Neutrophils % (auto) 74.6 % (37.0-80.0); Platelet Count (auto) 207 10^3/uL (140-450); Red Cell Distribution Width 17.1 % (11.8-14.3); White Blood Cell 6.7 10^3/uL (4.4-10.8)
[2016-12-03 17:00] LABS: Albumin 3.6 g/dL (3.4-5.0); Bilirubin, Total 0.4 mg/dL (0.2-1.0); Calcium 10.1 mg/dL (8.5-10.1); Magnesium 2.1 mg/dL (1.6-2.6); Total Protein 7.6 g/dL (6.4-8.2)
[2016-12-03] MEDS ORDERED: HYDROmorphone HCL 2 MG/ML VL IV ONE ×2 (20:00→23:15)
[2016-12-03] MEDS ORDERED: ONDANSETRON HCL 4 MG/2 ML VIAL IV ONE ×2 (20:00→23:15)
[2016-12-03] MEDS ORDERED: FAMOTIDINE (10MG/ML) 2ML VL IV ONE (23:15)
[2016-12-03 23:46] VITALS: BP 148/88
== END 2016-12-04 01:49 | disposition home or self-care (01) ==
LOC: EDBD 15:51 → ER 15:51
DX: R07.9 Chest pain, unspecified (principal); I13.2 Hypertensive heart and chronic kidney disease with heart failure and with stage 5 chronic kidney disease, or end stage renal disease; I50.9 Heart failure, unspecified; N18.6 End stage renal disease; Z99.2 Dependence on renal dialysis
CPT/HCPCS: 36415; 71010; 80053; 83735; 84484; 85025; 93005; 96374; 96375; 96376; 99285; J1170; J2405; J3490

== ENCOUNTER 2016-12-06 21:47 | Emergency (ER) | payer MEDICARE, MEDICAID ==
[~2016-12-06] VITALS: Ht 165.1 cm; Wt 74.8 kg
[2016-12-06 21:59] VITALS: BP 132/84
[2016-12-06] MEDS ORDERED: MAGNESIUM CITRATE SOLUTION 300 ML BTL PO ONE (22:30)
[2016-12-06] MEDS ORDERED: HYDROmorphone HCL 2 MG/ML VL IV ONE (22:30)
[2016-12-06] MEDS ORDERED: ONDANSETRON HCL 4 MG/2 ML VIAL IV ONE (22:30)
[2016-12-06] MEDS ORDERED: LACTULOSE 20Gm/30ML SOLN PO ONE (22:30)
[2016-12-07] MEDS ORDERED: FLEET ENEMA(ADULT) 135 ML PR ONE
[2016-12-07] MEDS ORDERED: HYDROmorphone HCL 2 MG/ML VL IV ONE
== END 2016-12-07 00:24 | disposition home or self-care (01) ==
LOC: EDBD 21:47 → ER 21:58
DX: K59.00 Constipation, unspecified (principal); I13.2 Hypertensive heart and chronic kidney disease with heart failure and with stage 5 chronic kidney disease, or end stage renal disease; N18.6 End stage renal disease; I50.9 Heart failure, unspecified; Z99.2 Dependence on renal dialysis
CPT/HCPCS: 96374; 96375; 96376; 99284; J1170; J2405

== ENCOUNTER 2016-12-31 03:02 | Inpatient (IN) | payer MEDICARE, MEDICAID ==
[~2016-12-31] VITALS: Ht 165.1 cm; Wt 76.1 kg
[~2016-12-31 03:02] MED LIST changes: -ACET-1158 PO; +AZI250T PO; -CHOL500016 PO; -CINA30TA2 PO; -CLO01T PO
[2016-12-31 03:49] LABS: Basophils # (auto) 0 uL; Eosinophils # (auto) 0.7 uL; Eosinophils % (auto) 14.8 % (0.0-7.0); Hematocrit 26.2 % (41.0-53.0); Hemoglobin 8.9 g/dL (13.5-17.5); Lymphocytes # (auto) 0.6 uL; Lymphocytes % (auto) 13.4 % (10.0-50.0); Mean Corpuscular Hemoglobin 30.6 pg (28.0-32.0); Mean Corpuscular Hgb Conc. 33.8 g/dL (32.0-36.0); Mean Corpuscular Volume 90.6 fL (80.0-100.0); Monocytes # (auto) 0.6 uL; Monocytes % (auto) 12.2 % (0.0-12.0); Neutrophils # (auto) 2.7 uL; Neutrophils % (auto) 58.6 % (37.0-80.0); Nucleated Red Blood Cells % 0.1 %; Platelet Count (auto) 183 10^3/uL (140-450); Red Cell Distribution Width 16.9 % (11.8-14.3); White Blood Cell 4.5 10^3/uL (4.4-10.8)
[2016-12-31 04:03] LABS: Albumin 3.7 g/dL (3.4-5.0); BUN/Creatinine Ratio 4.8; Calcium 9.8 mg/dL (8.5-10.1); Magnesium 2.3 mg/dL (1.6-2.6); Potassium 5.2 mmol/L (3.5-5.1)
[2016-12-31 04:07] LABS: Bilirubin, Total 0.7 mg/dL (0.2-1.0); Total Protein 7.2 g/dL (6.4-8.2)
[2016-12-31 04:08] LABS: INR 1.16 (0.9-1.15); Partial Thromboplastin Time 27.5 sec (22.64-33.71); Prothrombin Time 12.7 sec (9.37-12.3)
[2016-12-31 04:15] LABS: B-Type Natriuretic Peptide 1497.09 pg/mL (0-100)
[2016-12-31 04:46] LABS: Temperature: 23.3 C (20.0-25.0)
[2016-12-31] MEDS ORDERED: hydrALAZINE HCL 20 MG/ML VL IV ONE (08:15)
[2016-12-31] MEDS ORDERED: cloNIDine HCL 0.1 MG TAB PO ONE (08:15)
[2016-12-31] MEDS ORDERED: ENALAPRILAT 1.25 MG/ML-1ML VIAL IV ONE (08:15)
[2016-12-31] MEDS ORDERED: MORPHINE SULFATE 10 MG/ML INJ 1ML SDV IV ONE ×2 (09:00)
[2016-12-31] MEDS ORDERED: ONDANSETRON HCL 4 MG/2 ML VIAL IV ONE ×2 (09:00)
[2016-12-31] MEDS ORDERED: MORPHINE SULFATE 10 MG/ML INJ 1ML SDV IV PRN ×2 (10:15)
[2016-12-31] MEDS ORDERED: LACTULOSE 20Gm/30ML SOLN PO PRN (10:15)
[2016-12-31] MEDS ORDERED: LORazepam 0.5 MG TAB PO PRN (10:15)
[2016-12-31] MEDS ORDERED: HYDROcodone-ACET 5/325MG TAB PO PRN (10:15)
[2016-12-31] MEDS ORDERED: LABETALOL HCL 5 MG/ML ML 20ML VIAL IV PRN (10:15)
[2016-12-31] MEDS ORDERED: ACETAMINOPHEN 500 MG TAB PO PRN (10:15)
[2016-12-31] MEDS ORDERED: HYDROmorphone HCL 2 MG/ML VL IV ONE (10:15)
[2016-12-31] MEDS ORDERED: KETOROLAC TROMETH 30 MG/ML 1ML VIAL IV ONE (10:15)
[2016-12-31] MEDS ORDERED: IBUPROFEN 400 MG TAB PO PRN (10:15)
[2016-12-31] MEDS ORDERED: PANTOPRAZOLE 40 MG TAB PO ONE (10:15)
[2016-12-31] MEDS ORDERED: NITROGLYCERIN 0.4 MG SL TAB SL PRN (10:15)
[2016-12-31] MEDS ORDERED: MINOXIDIL 10 MG TAB PO ONE (10:45)
[2016-12-31] MEDS: cloNIDine HCL 0.1 MG TAB PO SCH ×3 (10:45→22:20)
[2016-12-31] MEDS ORDERED: CALCIUM ACETATE 667 MG CAP PO ONE (10:45)
[2016-12-31] MEDS ORDERED: NIFEdipine ER 30 MG TAB PO ONE (10:45)
[2016-12-31] MEDS ORDERED: FUROSEMIDE 40 MG/4 ML VIAL IV ONE (10:45)
[2016-12-31] MEDS ORDERED: ENOXAPARIN SOD 30 MG/0.3 ML SYRINGE SC ONE (10:45)
[2016-12-31] MEDS ORDERED: NITROGLYCERIN 0.2MG/HR TOPICAL PATCH TD ONE (10:45)
[2016-12-31] MEDS ORDERED: ASPirin 81 mg TAB PO ONE (10:45)
[2016-12-31] MEDS ORDERED: CARVEDILOL 3.125 MG TAB PO ONE (10:45)
[2016-12-31] MEDS ORDERED: METOPROLOL TARTRATE 50 MG TAB PO ONE (10:45)
[2016-12-31] MEDS: METOPROLOL TARTRATE 50 MG TAB PO SCH ×2 (11:15→22:18)
[2016-12-31] MEDS: risperiDONE 1 MG TAB PO SCH (11:16)
[2016-12-31] MEDS ORDERED: diphenhdrAMINE HCL 50 MG/1 ML VL IV ONE (13:15)
[2016-12-31] MEDS: SODIUM CHLOR 0.9% PF (SALINE LOCK) 10ML VIAL IV SCH ×2 (14:25→22:20)
[2016-12-31] MEDS: CALCIUM ACETATE 667 MG CAP PO SCH ×2 (14:29→22:21)
[2016-12-31] MEDS: traMADol HCL 50 MG TAB PO SCH ×2 (14:29→22:18)
[2016-12-31 17:06] VITALS: BP 138/75
[2016-12-31 18:38] VITALS: BP 80/146
[2016-12-31] MEDS ORDERED: CARVEDILOL 3.125 MG TAB PO SCH (22:00)
[2016-12-31] MEDS: HYDROmorphone HCL 2 MG/ML VL IV PRN (22:14)
[2016-12-31] MEDS: MINOXIDIL 10 MG TAB PO SCH (22:19)
[2016-12-31] MEDS: PROMETHAZINE HCL 25 MG/ML 1ML IV PRN (22:29)
[2016-12-31 22:44] VITALS: BP 146/72
[2016-12-31] MEDS: TEMAZEPAM 15 MG CAP PO PRN (23:23)
[2017-01-01 05:12] VITALS: BP 121/77
[2017-01-01] MEDS: SODIUM CHLOR 0.9% PF (SALINE LOCK) 10ML VIAL IV SCH ×3 (06:00→22:28)
[2017-01-01] MEDS: CALCIUM ACETATE 667 MG CAP PO SCH ×3 (06:38→22:36)
[2017-01-01] MEDS: cloNIDine HCL 0.1 MG TAB PO SCH ×3 (06:39→22:38)
[2017-01-01] MEDS: traMADol HCL 50 MG TAB PO SCH ×3 (06:39→22:45)
[2017-01-01 06:55] LABS: Hematocrit 25.5 % (41.0-53.0)
[2017-01-01 07:00] LABS: Hemoglobin 8.5 g/dL (13.5-17.5); Mean Corpuscular Hemoglobin 30.6 pg (28.0-32.0); Mean Corpuscular Hgb Conc. 33.5 g/dL (32.0-36.0); Mean Corpuscular Volume 91.5 fL (80.0-100.0); Mean Platelet Volume 8.4 fL (6.9-10.8); Platelet Count (auto) 60 10^3/uL (140-450); Red Cell Distribution Width 17.2 % (11.8-14.3); White Blood Cell 3.5 10^3/uL (4.4-10.8)
[2017-01-01 07:19] LABS: Albumin 3.5 g/dL (3.4-5.0); BUN/Creatinine Ratio 6.1; Bilirubin, Total 0.7 mg/dL (0.2-1.0); Calcium 9.8 mg/dL (8.5-10.1); Total Protein 6.5 g/dL (6.4-8.2)
[2017-01-01 07:47] LABS: Potassium 6.3 mmol/L (3.5-5.1)
[2017-01-01 08:00] VITALS: BP 139/69
[2017-01-01 08:22] LABS: Metamyelocytes % 0; Myelocytes % 0; Promyelocytes % 0; Reactive Lymphocytes 0
[2017-01-01 09:00] VITALS: BP 139/69
[2017-01-01] MEDS: LOSARTAN POTASSIUM 50 MG TAB PO SCH (10:00)
[2017-01-01] MEDS: NIFEdipine ER 30 MG TAB PO SCH (10:00)
[2017-01-01] MEDS: MINOXIDIL 10 MG TAB PO SCH ×2 (10:00→22:36)
[2017-01-01] MEDS: NITROGLYCERIN 0.2MG/HR TOPICAL PATCH TD SCH (10:00)
[2017-01-01] MEDS: METOPROLOL TARTRATE 50 MG TAB PO SCH ×2 (10:00→22:38)
[2017-01-01] MEDS ORDERED: PANTOPRAZOLE 40 MG TAB PO SCH (10:00)
[2017-01-01] MEDS: PANTOPRAZOLE 40 MG TAB PO SCH (10:36)
[2017-01-01] MEDS: FUROSEMIDE 40 MG/4 ML VIAL IV SCH (10:36)
[2017-01-01] MEDS: ASPirin 81 mg TAB PO SCH (10:36)
[2017-01-01] MEDS: ENOXAPARIN SOD 30 MG/0.3 ML SYRINGE SC SCH (10:37)
[2017-01-01] MEDS: risperiDONE 1 MG TAB PO SCH (10:37)
[2017-01-01] MEDS ORDERED: EPOETIN ALFA 10,000 UNIT/1 ML VIAL IV ONE (12:00)
[2017-01-01 13:13] VITALS: BP 134/64
[2017-01-01] MEDS: diphenhdrAMINE HCL 25 MG CAP PO PRN ×2 (13:48→22:39)
[2017-01-01] MEDS: PROMETHAZINE HCL 25 MG/ML 1ML IV PRN (13:48)
[2017-01-01] MEDS: HYDROmorphone HCL 2 MG/ML VL IV PRN ×3 (13:49→22:36)
[2017-01-01 14:35] LABS: Platelet Estimate Decreased
[2017-01-01 14:37] LABS: Burr Cells FEW; Ovalocytes FEW; Schistocytes FEW
[2017-01-01 17:15] VITALS: BP 146/82
[2017-01-01] MEDS: KETOROLAC TROMETH 30 MG/ML 1ML VIAL IV SCH ×2 (17:32→23:59)
[2017-01-01] MEDS ORDERED: KETOROLAC TROMETH 30 MG/ML 1ML VIAL IV SCH (18:00)
[2017-01-01 22:00] VITALS: BP 142/87
[2017-01-01] MEDS: TEMAZEPAM 15 MG CAP PO PRN (22:39)
[2017-01-02 05:00] VITALS: BP 138/72
[2017-01-02] MEDS: CALCIUM ACETATE 667 MG CAP PO SCH ×3 (05:54→22:05)
[2017-01-02] MEDS: KETOROLAC TROMETH 30 MG/ML 1ML VIAL IV SCH ×3 (05:54→18:28)
[2017-01-02] MEDS: traMADol HCL 50 MG TAB PO SCH ×3 (05:54→22:05)
[2017-01-02] MEDS: cloNIDine HCL 0.1 MG TAB PO SCH ×3 (06:00→22:03)
[2017-01-02] MEDS: SODIUM CHLOR 0.9% PF (SALINE LOCK) 10ML VIAL IV SCH ×3 (06:30→22:02)
[2017-01-02] MEDS: HYDROmorphone HCL 2 MG/ML VL IV PRN ×2 (08:22→15:22)
[2017-01-02] MEDS: PROMETHAZINE HCL 25 MG/ML 1ML IV PRN ×3 (08:22→18:29)
[2017-01-02 09:06] VITALS: BP 139/72
[2017-01-02] MEDS: risperiDONE 1 MG TAB PO SCH (09:27)
[2017-01-02] MEDS: LOSARTAN POTASSIUM 50 MG TAB PO SCH (09:28)
[2017-01-02] MEDS: NIFEdipine ER 30 MG TAB PO SCH (09:29)
[2017-01-02] MEDS: MINOXIDIL 10 MG TAB PO SCH ×2 (09:29→22:04)
[2017-01-02] MEDS: PANTOPRAZOLE 40 MG TAB PO SCH (09:30)
[2017-01-02] MEDS: ASPirin 81 mg TAB PO SCH (09:30)
[2017-01-02] MEDS: METOPROLOL TARTRATE 50 MG TAB PO SCH ×2 (09:30→22:04)
[2017-01-02] MEDS: ENOXAPARIN SOD 30 MG/0.3 ML SYRINGE SC SCH (09:31)
[2017-01-02] MEDS: FUROSEMIDE 40 MG/4 ML VIAL IV SCH (09:31)
[2017-01-02] MEDS: NITROGLYCERIN 0.2MG/HR TOPICAL PATCH TD SCH (10:00)
[2017-01-02 13:24] VITALS: BP 143/82
[2017-01-02 17:00] VITALS: BP 132/59
[2017-01-02 17:14] LABS: BUN/Creatinine Ratio 6.2; Calcium 9.7 mg/dL (8.5-10.1)
[2017-01-02 17:25] LABS: Potassium 5.9 mmol/L (3.5-5.1)
[2017-01-02] MEDS ORDERED: CALCIUM GLUC 4.65meq/50ml D5AE 50 ML IV ONE (17:45)
[2017-01-02] MEDS ORDERED: DEXTROSE (50%) 50ML SYRG IV ONE (17:45)
[2017-01-02] MEDS ORDERED: SODIUM BICARBONATE 8.4% INJ 50ML SYRINGE IV ONE (17:45)
[2017-01-02] MEDS ORDERED: InsuLIN REG 1unit/0.01ml Soln (100units/ml) SC ONE (17:45)
[2017-01-02 21:51] VITALS: BP 138/76
[2017-01-03] MEDS: KETOROLAC TROMETH 30 MG/ML 1ML VIAL IV SCH ×5 (00:19→23:44)
[2017-01-03] MEDS ORDERED: DEXTROSE (50%) 50ML SYRG IV ONE ×2 (01:45→04:15)
[2017-01-03] MEDS ORDERED: InsuLIN REG 1unit/0.01ml Soln (100units/ml) SC ONE (01:45)
[2017-01-03] MEDS ORDERED: SODIUM BICARBONATE 8.4 % INJ 50ML VIAL IV ONE (01:45)
[2017-01-03] MEDS ORDERED: DEXTROSE 50% SYRINGE 50 ML IV ONE (04:03)
[2017-01-03 05:00] VITALS: BP 126/62
[2017-01-03] MEDS: cloNIDine HCL 0.1 MG TAB PO SCH ×3 (05:46→22:03)
[2017-01-03] MEDS: CALCIUM ACETATE 667 MG CAP PO SCH ×3 (05:46→22:05)
[2017-01-03] MEDS: traMADol HCL 50 MG TAB PO SCH ×3 (05:47→22:05)
[2017-01-03] MEDS: SODIUM CHLOR 0.9% PF (SALINE LOCK) 10ML VIAL IV SCH ×3 (05:47→22:03)
[2017-01-03 06:49] LABS: Basophils # (auto) 0 uL; Lymphocytes # (auto) 0.5 uL; Monocytes # (auto) 0.5 uL; White Blood Cell 5.3 10^3/uL (4.4-10.8)
[2017-01-03 06:59] LABS: Basophils % (auto) 0.7 % (0.0-2.0); Eosinophils # (auto) 0.6 uL; Eosinophils % (auto) 12.1 % (0.0-7.0); Hematocrit 23.3 % (41.0-53.0); Hemoglobin 8.1 g/dL (13.5-17.5); Lymphocytes % (auto) 8.6 % (10.0-50.0); Mean Corpuscular Hemoglobin 30.9 pg (28.0-32.0); Mean Corpuscular Hgb Conc. 34.5 g/dL (32.0-36.0); Mean Corpuscular Volume 89.5 fL (80.0-100.0); Mean Platelet Volume 7.6 fL (6.9-10.8); Monocytes % (auto) 8.8 % (0.0-12.0); Neutrophils # (auto) 3.7 uL; Neutrophils % (auto) 69.8 % (37.0-80.0); Nucleated Red Blood Cells % 0.1 %; Platelet Count (auto) 171 10^3/uL (140-450); Red Cell Distribution Width 16.7 % (11.8-14.3)
[2017-01-03 07:12] LABS: Potassium 5.1 mmol/L (3.5-5.1)
[2017-01-03 07:30] LABS: BUN/Creatinine Ratio 6.9; Calcium 9.9 mg/dL (8.5-10.1)
[2017-01-03 07:51] VITALS: BP 149/68
[2017-01-03] MEDS: ASPirin 81 mg TAB PO SCH (10:00)
[2017-01-03] MEDS: PROMETHAZINE HCL 25 MG/ML 1ML IV PRN (12:05)
[2017-01-03 12:20] VITALS: BP 140/93
[2017-01-03] MEDS ORDERED: SODIUM CHL 0.9% 1000 ML BAG XX ONE (14:15)
[2017-01-03] MEDS ORDERED: EPOETIN ALFA 2,000 UNIT/1 ML VIAL IV ONE (14:30)
[2017-01-03] MEDS ORDERED: EPOETIN ALFA 3,000 UNIT/1 ML VIAL IV ONE (14:30)
[2017-01-03 16:00] VITALS: BP 108/57
[2017-01-03 17:30] VITALS: BP 127/63
[2017-01-03] MEDS: ENOXAPARIN SOD 30 MG/0.3 ML SYRINGE SC SCH (18:19)
[2017-01-03] MEDS: MINOXIDIL 10 MG TAB PO SCH ×2 (18:21→22:04)
[2017-01-03] MEDS: LOSARTAN POTASSIUM 50 MG TAB PO SCH (18:21)
[2017-01-03] MEDS: risperiDONE 1 MG TAB PO SCH (18:21)
[2017-01-03] MEDS: METOPROLOL TARTRATE 50 MG TAB PO SCH ×2 (18:22→22:05)
[2017-01-03] MEDS: PANTOPRAZOLE 40 MG TAB PO SCH (18:22)
[2017-01-03] MEDS: NIFEdipine ER 30 MG TAB PO SCH (18:23)
[2017-01-03 22:00] VITALS: BP 146/73
[2017-01-04 04:52] VITALS: BP 112/55
[2017-01-04] MEDS: traMADol HCL 50 MG TAB PO SCH (05:50)
[2017-01-04] MEDS: CALCIUM ACETATE 667 MG CAP PO SCH (05:50)
[2017-01-04] MEDS: SODIUM CHLOR 0.9% PF (SALINE LOCK) 10ML VIAL IV SCH (05:51)
[2017-01-04] MEDS: KETOROLAC TROMETH 30 MG/ML 1ML VIAL IV SCH (05:51)
[2017-01-04] MEDS: cloNIDine HCL 0.1 MG TAB PO SCH (06:04)
[2017-01-04 06:43] LABS: BUN/Creatinine Ratio 5.8; Calcium 9.1 mg/dL (8.5-10.1); Potassium 5.2 mmol/L (3.5-5.1)
[2017-01-04 09:11] VITALS: BP 119/63
[2017-01-04] MEDS: ASPirin 81 mg TAB PO SCH (09:51)
[2017-01-04] MEDS: METOPROLOL TARTRATE 50 MG TAB PO SCH (09:52)
[2017-01-04] MEDS: ENOXAPARIN SOD 30 MG/0.3 ML SYRINGE SC SCH (09:52)
[2017-01-04] MEDS: NIFEdipine ER 30 MG TAB PO SCH (09:52)
[2017-01-04] MEDS: LOSARTAN POTASSIUM 50 MG TAB PO SCH (09:52)
[2017-01-04] MEDS: risperiDONE 1 MG TAB PO SCH (09:52)
[2017-01-04] MEDS: PANTOPRAZOLE 40 MG TAB PO SCH (09:52)
[2017-01-04] MEDS: MINOXIDIL 10 MG TAB PO SCH (09:52)
[2017-01-04 11:29] VITALS: BP 119/63
[2017-01-04 11:55] VITALS: BP 125/54
== END 2017-01-04 12:09 | disposition home or self-care (01) | DRG 291 ==
LOC: ER 03:04 → TELE 03:05 → TELE-EAST 16:44
PROVIDERS: ADMIT Internal Medicine; ATTEND Internal Medicine Pulmonary Disease
PROC: 5A1D70Z Performance of Urinary Filtration, Intermittent, Less than 6 Hours Per Day (ICD-10-PCS; principal; 2017-01-01)
PROC: 5A1D70Z Performance of Urinary Filtration, Intermittent, Less than 6 Hours Per Day (ICD-10-PCS; 2017-01-03)
DX: I13.2 Hypertensive heart and chronic kidney disease with heart failure and with stage 5 chronic kidney disease, or end stage renal disease (principal); I50.33 Acute on chronic diastolic (congestive) heart failure; N18.6 End stage renal disease; E87.1 Hypo-osmolality and hyponatremia; Z94.0 Kidney transplant status; E87.5 Hyperkalemia; R07.89 Other chest pain; F41.9 Anxiety disorder, unspecified; K29.90 Gastroduodenitis, unspecified, without bleeding; J45.909 Unspecified asthma, uncomplicated; F32.9 Major depressive disorder, single episode, unspecified; E87.6 Hypokalemia; D63.8 Anemia in other chronic diseases classified elsewhere; Z91.15 Patient's noncompliance with renal dialysis; Z82.49 Family history of ischemic heart disease and other diseases of the circulatory system; Z83.3 Family history of diabetes mellitus; Z84.1 Family history of disorders of kidney and ureter; Z79.899 Other long term (current) drug therapy; Z99.2 Dependence on renal dialysis
CPT/HCPCS: 36415; 71010; 71101; 71250; 80048; 80053; 80061; 82150; 82550; 82962; 83690; 83735; 83880; 84132; 84443; 84484; 85007; 85025; 85027; 85610; 85652; 85730; 86141; 87081; 90935; 93005; 93971; 96372; 96374; 96375; 99291; J0610; J0885; J1815; J1885; J2405; Q4081

== ENCOUNTER 2017-01-07 22:24 | Emergency (ER) | payer MEDICARE, MEDICAID ==
[~2017-01-07] VITALS: Ht 165.1 cm; Wt 63.5 kg
[~2017-01-07 22:24] MED LIST changes: -AZI250T PO
[2017-01-08 00:01] LABS: Basophils # (auto) 0 uL; Basophils % (auto) 0.5 % (0.0-2.0); Eosinophils # (auto) 0.2 uL; Eosinophils % (auto) 4.7 % (0.0-7.0); Hematocrit 25.5 % (41.0-53.0); Hemoglobin 8.5 g/dL (13.5-17.5); Lymphocytes # (auto) 0.4 uL; Lymphocytes % (auto) 7.3 % (10.0-50.0); Mean Corpuscular Hemoglobin 29.8 pg (28.0-32.0); Mean Corpuscular Hgb Conc. 33.4 g/dL (32.0-36.0); Mean Corpuscular Volume 89.2 fL (80.0-100.0); Monocytes # (auto) 0.8 uL; Monocytes % (auto) 14.8 % (0.0-12.0); Neutrophils # (auto) 3.7 uL; Neutrophils % (auto) 72.7 % (37.0-80.0); Nucleated Red Blood Cells % 0.1 %; Platelet Count (auto) 157 10^3/uL (140-450); Red Cell Distribution Width 16.3 % (11.8-14.3); White Blood Cell 5.2 10^3/uL (4.4-10.8)
[2017-01-08 00:16] LABS: BUN/Creatinine Ratio 5.6; Calcium 8.9 mg/dL (8.5-10.1); Potassium 4.6 mmol/L (3.5-5.1)
[2017-01-08 00:19] LABS: Bilirubin, Total 0.5 mg/dL (0.2-1.0); Total Protein 6.6 g/dL (6.4-8.2)
[2017-01-08 05:00] VITALS: BP 184/91
[2017-01-08] MEDS ORDERED: ONDANSETRON ODT 4 MG TAB PO ONE (06:00)
[2017-01-08] MEDS ORDERED: HYDROmorphone HCL 2 MG/ML VL IM ONE (06:00)
== END 2017-01-08 07:24 | disposition home or self-care (01) ==
LOC: ER 22:37
DX: I12.0 Hypertensive chronic kidney disease with stage 5 chronic kidney disease or end stage renal disease (principal); N18.6 End stage renal disease; J45.909 Unspecified asthma, uncomplicated; I80.9 Phlebitis and thrombophlebitis of unspecified site; Z79.899 Other long term (current) drug therapy; Z99.2 Dependence on renal dialysis
CPT/HCPCS: 36415; 80053; 85025; 96372; 99284; J1170; Q0162

== ENCOUNTER 2017-02-09 05:44 | Emergency (ER) | payer MEDICARE, MEDICAID ==
[~2017-02-09] VITALS: Ht 165.1 cm; Wt 74.8 kg
[~2017-02-09 05:44] MED LIST changes: -RISP0.5T45 PO; -TRAM50TA2 PO
[2017-02-09 06:54] LABS: Basophils # (auto) 0.1 uL; Basophils % (auto) 0.9 % (0.0-2.0); Eosinophils # (auto) 0.8 uL; Eosinophils % (auto) 11.6 % (0.0-7.0); Hematocrit 34.8 % (41.0-53.0); Hemoglobin 11.8 g/dL (13.5-17.5); Lymphocytes # (auto) 0.7 uL; Mean Corpuscular Hemoglobin 29.6 pg (28.0-32.0); Mean Corpuscular Hgb Conc. 33.9 g/dL (32.0-36.0); Mean Corpuscular Volume 87.4 fL (80.0-100.0); Mean Platelet Volume 6.9 fL (6.9-10.8); Monocytes # (auto) 0.5 uL; Monocytes % (auto) 6.8 % (0.0-12.0); Neutrophils # (auto) 4.7 uL; Neutrophils % (auto) 70.7 % (37.0-80.0); Platelet Count (auto) 187 10^3/uL (140-450); Red Cell Distribution Width 15.8 % (11.8-14.3); White Blood Cell 6.7 10^3/uL (4.4-10.8)
[2017-02-09] MEDS ORDERED: LABETALOL HCL 5 MG/ML ML 20ML VIAL IV ONE (07:00)
[2017-02-09 07:12] LABS: Albumin 4.1 g/dL (3.4-5.0); BUN/Creatinine Ratio 4.6; Calcium 10.2 mg/dL (8.5-10.1); Potassium 4.5 mmol/L (3.5-5.1)
[2017-02-09 07:19] LABS: Bilirubin, Total 0.9 mg/dL (0.2-1.0)
[2017-02-09 07:24] LABS: B-Type Natriuretic Peptide 1243.78 pg/mL (0-100)
[2017-02-09 07:25] LABS: Temperature: 22.8 C (20.0-25.0)
[2017-02-09] MEDS ORDERED: ONDANSETRON HCL 4 MG/2 ML VIAL IV ONE (09:00)
[2017-02-09] MEDS ORDERED: MORPHINE SULFATE 4 MG/ML SYRG IV ONE (09:00)
[2017-02-09] MEDS ORDERED: cloNIDine HCL 0.1 MG TAB PO ONE (09:00)
[2017-02-09 09:55] VITALS: BP 177/108
== END 2017-02-09 09:56 | disposition home or self-care (01) ==
LOC: EDBD 05:44 → ER 05:48
DX: I12.0 Hypertensive chronic kidney disease with stage 5 chronic kidney disease or end stage renal disease (principal); N18.6 End stage renal disease; Z99.2 Dependence on renal dialysis; J45.909 Unspecified asthma, uncomplicated; Z83.3 Family history of diabetes mellitus; Z82.49 Family history of ischemic heart disease and other diseases of the circulatory system
CPT/HCPCS: 36415; 71010; 80053; 83880; 85025; 96374; 96375; 99285; J2270; J2405

== ENCOUNTER 2017-02-26 14:24 | Emergency (ER) | payer MEDICARE, MEDICAID ==
[~2017-02-26] VITALS: Ht 165.1 cm; Wt 65.8 kg
[2017-02-26 14:34] VITALS: BP 176/119
[2017-02-26 15:09] LABS: Basophils # (auto) 0 uL; Basophils % (auto) 0.8 % (0.0-2.0); Eosinophils # (auto) 0.3 uL; Eosinophils % (auto) 7.8 % (0.0-7.0); Hematocrit 32.3 % (41.0-53.0); Hemoglobin 10.6 g/dL (13.5-17.5); Lymphocytes # (auto) 0.5 uL; Lymphocytes % (auto) 12.5 % (10.0-50.0); Mean Corpuscular Hemoglobin 29.1 pg (28.0-32.0); Mean Corpuscular Hgb Conc. 32.7 g/dL (32.0-36.0); Mean Corpuscular Volume 89.2 fL (80.0-100.0); Monocytes # (auto) 0.4 uL; Monocytes % (auto) 10.3 % (0.0-12.0); Neutrophils # (auto) 2.7 uL; Neutrophils % (auto) 68.6 % (37.0-80.0); Nucleated Red Blood Cells % 0.1 %; Platelet Count (auto) 200 10^3/uL (140-450); Red Blood Cells 3.62 10^6/uL (4.5-5.90); Red Cell Distribution Width 16.8 % (11.8-14.3)
[2017-02-26 15:35] LABS: Albumin 3.7 g/dL (3.4-5.0); BUN/Creatinine Ratio 4.8; Bilirubin, Total 0.7 mg/dL (0.2-1.0); Total Protein 7.1 g/dL (6.4-8.2)
[2017-02-26 15:57] LABS: Potassium 5.6 mmol/L (3.5-5.1)
== END 2017-02-26 21:09 | disposition left against medical advice (07) ==
LOC: ER 14:24
DX: I12.0 Hypertensive chronic kidney disease with stage 5 chronic kidney disease or end stage renal disease (principal); N18.6 End stage renal disease; E87.5 Hyperkalemia; R74.8 Abnormal levels of other serum enzymes; R42 Dizziness and giddiness; J45.909 Unspecified asthma, uncomplicated; Z94.0 Kidney transplant status; Z99.2 Dependence on renal dialysis
CPT/HCPCS: 36415; 80053; 84484; 85025; 93005; 99291

== ENCOUNTER 2017-03-05 00:59 | Inpatient (IN) | payer MEDICARE, MEDICAID ==
[~2017-03-05] VITALS: Ht 165.1 cm; Wt 65.9 kg
[2017-03-05 03:50] LABS: Basophils # (auto) 0.1 uL; Basophils % (auto) 0.8 % (0.0-2.0); Eosinophils # (auto) 0.2 uL; Eosinophils % (auto) 2.4 % (0.0-7.0); Hematocrit 29.2 % (41.0-53.0); Hemoglobin 10.1 g/dL (13.5-17.5); Lymphocytes # (auto) 0.6 uL; Lymphocytes % (auto) 7.9 % (10.0-50.0); Mean Corpuscular Hemoglobin 30.5 pg (28.0-32.0); Mean Corpuscular Hgb Conc. 34.6 g/dL (32.0-36.0); Mean Corpuscular Volume 88.1 fL (80.0-100.0); Monocytes # (auto) 0.7 uL; Monocytes % (auto) 9.4 % (0.0-12.0); Neutrophils # (auto) 5.8 uL; Neutrophils % (auto) 79.5 % (37.0-80.0); Nucleated Red Blood Cells % 0.1 %; Platelet Count (auto) 172 10^3/uL (140-450); Red Blood Cells 3.32 10^6/uL (4.5-5.90); White Blood Cell 7.3 10^3/uL (4.4-10.8)
[2017-03-05 03:57] LABS: Albumin 3.8 g/dL (3.4-5.0); Calcium 9.8 mg/dL (8.5-10.1); Potassium 5.5 mmol/L (3.5-5.1)
[2017-03-05 04:05] LABS: BUN/Creatinine Ratio 4.9; Bilirubin, Total 0.7 mg/dL (0.2-1.0); Total Protein 7.3 g/dL (6.4-8.2)
[2017-03-05] MEDS ORDERED: HYDROmorphone HCL 2 MG/ML VL IV ONE (04:15)
[2017-03-05] MEDS ORDERED: ONDANSETRON HCL 4 MG/2 ML VIAL IV ONE (04:15)
[2017-03-05] MEDS ORDERED: MORPHINE SULF INJ 2 MG/ML SYRINGE 1ML IV PRN (07:45)
[2017-03-05] MEDS ORDERED: ACETAMINOPHEN 500 MG TAB PO PRN (07:45)
[2017-03-05] MEDS: ONDANSETRON HCL 4 MG/2 ML VIAL IV PRN ×5 (08:30→22:35)
[2017-03-05] MEDS: cloNIDine HCL 0.1 MG TAB PO SCH ×4 (08:30→21:21)
[2017-03-05] MEDS: cefTRIAXone 1GM/10ml IVPUSH 10 ML IV SCH (08:54)
[2017-03-05] MEDS: METOPROLOL TARTRATE 50 MG TAB PO SCH ×2 (10:00→21:21)
[2017-03-05] MEDS: HYDROmorphone HCL 2 MG/ML VL IV PRN ×3 (12:21→20:33)
[2017-03-05] MEDS: CLINDAMYCIN 600MG IV 50 ML IV SCH ×2 (15:00→22:34)
[2017-03-05 22:00] VITALS: BP 178/111
[2017-03-06] MEDS ORDERED: NIFEdipine 10 MG CAP PO ONE ×2 (00:15→10:00)
[2017-03-06] MEDS: HYDROmorphone HCL 2 MG/ML VL IV PRN ×6 (00:40→22:17)
[2017-03-06] MEDS ORDERED: NIFEdipine ER 30 MG TAB PO ONE (00:45)
[2017-03-06] MEDS: SODIUM POLYSTYRENE SULF 15GM/60ML SUSP PO ONE ×2 (02:46→02:49)
[2017-03-06] MEDS: ONDANSETRON HCL 4 MG/2 ML VIAL IV PRN ×4 (04:40→22:15)
[2017-03-06 05:00] VITALS: BP 163/98
[2017-03-06] MEDS: CLINDAMYCIN 600MG IV 50 ML IV SCH ×3 (05:27→22:18)
[2017-03-06] MEDS: cloNIDine HCL 0.1 MG TAB PO SCH ×3 (05:28→22:14)
[2017-03-06 07:30] LABS: Basophils # (auto) 0 uL; Basophils % (auto) 0.2 % (0.0-2.0); Eosinophils # (auto) 0 uL; Eosinophils % (auto) 0.4 % (0.0-7.0); Hematocrit 31.2 % (41.0-53.0); Hemoglobin 10.5 g/dL (13.5-17.5); Lymphocytes # (auto) 0.4 uL; Lymphocytes % (auto) 3.6 % (10.0-50.0); Mean Corpuscular Hemoglobin 29.5 pg (28.0-32.0); Mean Corpuscular Hgb Conc. 33.5 g/dL (32.0-36.0); Mean Corpuscular Volume 88.2 fL (80.0-100.0); Monocytes # (auto) 0.9 uL; Neutrophils # (auto) 9.6 uL; Neutrophils % (auto) 87.8 % (37.0-80.0); Nucleated Red Blood Cells % 0.2 %; Platelet Count (auto) 181 10^3/uL (140-450); Red Blood Cells 3.54 10^6/uL (4.5-5.90); Red Cell Distribution Width 16.5 % (11.8-14.3); White Blood Cell 10.9 10^3/uL (4.4-10.8)
[2017-03-06 07:47] LABS: BUN/Creatinine Ratio 5.1
[2017-03-06 08:18] LABS: Potassium 6.7 mmol/L (3.5-5.1)
[2017-03-06 08:32] VITALS: BP 158/78
[2017-03-06] MEDS ORDERED: SODIUM CHL 0.9% 1000 ML BAG XX ONE (09:30)
[2017-03-06] MEDS ORDERED: SODIUM POLYSTYRENE SULF 15GM/60ML SUSP PO ONE (09:45)
[2017-03-06] MEDS ORDERED: EPOETIN ALFA 3,000 UNIT/1 ML VIAL IV ONE (10:00)
[2017-03-06] MEDS ORDERED: EPOETIN ALFA 2,000 UNIT/1 ML VIAL IV ONE (10:00)
[2017-03-06] MEDS: cefTRIAXone 1GM/10ml IVPUSH 10 ML IV SCH (10:51)
[2017-03-06] MEDS: METOPROLOL TARTRATE 50 MG TAB PO SCH ×2 (10:52→22:14)
[2017-03-06] MEDS: NIFEdipine ER 30 MG TAB PO SCH (10:53)
[2017-03-06 13:00] VITALS: BP 156/82
[2017-03-06 16:47] VITALS: BP 164/89
[2017-03-06] MEDS ORDERED: VANCOMYCIN PER PHARMACY 0 MG IV SCH (20:00)
[2017-03-06] MEDS ORDERED: OXYCODONE W/ ACETAMINOPHEN 5/325MG TABLET PO PRN (20:00)
[2017-03-06] MEDS ORDERED: VANCOMYCIN 1GM/250ML 250 ML IV ONE (21:00)
[2017-03-06 21:32] VITALS: BP 177/90
[2017-03-07] MEDS: HYDROmorphone HCL 2 MG/ML VL IV PRN ×6 (02:20→23:58)
[2017-03-07 05:36] VITALS: BP 145/88
[2017-03-07] MEDS: CLINDAMYCIN 600MG IV 50 ML IV SCH ×3 (06:16→21:11)
[2017-03-07] MEDS: ONDANSETRON HCL 4 MG/2 ML VIAL IV PRN ×3 (06:18→21:12)
[2017-03-07] MEDS: cloNIDine HCL 0.1 MG TAB PO SCH ×3 (06:20→21:11)
[2017-03-07 08:46] VITALS: BP 140/75
[2017-03-07] MEDS: cefTRIAXone 1GM/10ml IVPUSH 10 ML IV SCH (10:29)
[2017-03-07] MEDS: NIFEdipine ER 30 MG TAB PO SCH (10:30)
[2017-03-07] MEDS: METOPROLOL TARTRATE 50 MG TAB PO SCH ×2 (10:31→21:11)
[2017-03-07 13:00] VITALS: BP 130/74
[2017-03-07 17:00] VITALS: BP 122/80
[2017-03-07] MEDS ORDERED: VANCOMYCIN 500 MG in D5W 5% 100 ML IV ONE (21:00)
[2017-03-07 21:41] VITALS: BP 145/74
[2017-03-08] MEDS: HYDROmorphone HCL 2 MG/ML VL IV PRN ×5 (03:59→20:25)
[2017-03-08] MEDS: ONDANSETRON HCL 4 MG/2 ML VIAL IV PRN ×4 (03:59→20:25)
[2017-03-08 05:00] VITALS: BP 148/78
[2017-03-08] MEDS: cloNIDine HCL 0.1 MG TAB PO SCH ×3 (05:11→21:34)
[2017-03-08] MEDS: CLINDAMYCIN 600MG IV 50 ML IV SCH ×2 (05:11→13:50)
[2017-03-08 05:31] LABS: Basophils # (auto) 0 uL; Basophils % (auto) 0.5 % (0.0-2.0); Eosinophils # (auto) 0.1 uL; Eosinophils % (auto) 1.4 % (0.0-7.0); Hematocrit 29.6 % (41.0-53.0); Lymphocytes # (auto) 0.4 uL; Lymphocytes % (auto) 4.7 % (10.0-50.0); Mean Corpuscular Hemoglobin 29.7 pg (28.0-32.0); Mean Corpuscular Hgb Conc. 33.8 g/dL (32.0-36.0); Mean Corpuscular Volume 87.8 fL (80.0-100.0); Monocytes % (auto) 13.2 % (0.0-12.0); Neutrophils % (auto) 80.2 % (37.0-80.0); Nucleated Red Blood Cells % 0.1 %; Platelet Count (auto) 174 10^3/uL (140-450); Red Blood Cells 3.37 10^6/uL (4.5-5.90); Red Cell Distribution Width 16.5 % (11.8-14.3); White Blood Cell 7.5 10^3/uL (4.4-10.8)
[2017-03-08 05:57] LABS: BUN/Creatinine Ratio 5.6; Calcium 9.1 mg/dL (8.5-10.1)
[2017-03-08 06:00] LABS: Potassium 5.6 mmol/L (3.5-5.1)
[2017-03-08 08:00] VITALS: BP 142/74
[2017-03-08 09:12] VITALS: BP 142/74
[2017-03-08] MEDS: cefTRIAXone 1GM/10ml IVPUSH 10 ML IV SCH (09:55)
[2017-03-08] MEDS: METOPROLOL TARTRATE 50 MG TAB PO SCH ×2 (09:55→21:35)
[2017-03-08] MEDS: NIFEdipine ER 30 MG TAB PO SCH (10:00)
[2017-03-08 13:08] VITALS: BP 151/85
[2017-03-08 17:15] VITALS: BP 158/88
[2017-03-08] MEDS: predniSONE 20 MG TAB PO SCH (19:35)
[2017-03-08] MEDS: IBUPROFEN 800 MG TAB PO SCH (21:33)
[2017-03-08 21:40] LABS: INR 1.12 (0.9-1.15); Prothrombin Time 12.2 sec (9.37-12.3)
[2017-03-08 21:54] VITALS: BP 92/136
[2017-03-09] VITALS (7 sets, daily range): BP systolic 125–183; BP diastolic 71–120
[2017-03-09] MEDS: HYDROmorphone HCL 2 MG/ML VL IV PRN ×6 (00:24→21:35)
[2017-03-09] MEDS: ONDANSETRON HCL 4 MG/2 ML VIAL IV PRN ×6 (00:24→21:35)
[2017-03-09] MEDS ORDERED: diphenhdrAMINE HCL 50 MG/1 ML VL IM ONE (00:30)
[2017-03-09] MEDS: cloNIDine HCL 0.1 MG TAB PO SCH ×4 (05:33→20:55)
[2017-03-09 07:04] LABS: Basophils # (auto) 0 uL; Basophils % (auto) 0.2 % (0.0-2.0); Eosinophils # (auto) 0 uL; Hematocrit 30.6 % (41.0-53.0); Hemoglobin 10.4 g/dL (13.5-17.5); Lymphocytes # (auto) 0.2 uL; Lymphocytes % (auto) 3.2 % (10.0-50.0); Mean Corpuscular Hemoglobin 29.5 pg (28.0-32.0); Mean Corpuscular Hgb Conc. 33.8 g/dL (32.0-36.0); Mean Corpuscular Volume 87.1 fL (80.0-100.0); Monocytes # (auto) 0.2 uL; Monocytes % (auto) 3.4 % (0.0-12.0); Neutrophils # (auto) 6.7 uL; Neutrophils % (auto) 93.2 % (37.0-80.0); Platelet Count (auto) 199 10^3/uL (140-450); Red Blood Cells 3.52 10^6/uL (4.5-5.90); Red Cell Distribution Width 16.4 % (11.8-14.3); White Blood Cell 7.2 10^3/uL (4.4-10.8)
[2017-03-09 07:21] LABS: Albumin 3.3 g/dL (3.4-5.0); BUN/Creatinine Ratio 6.3; Bilirubin, Total 0.5 mg/dL (0.2-1.0); Calcium 9.7 mg/dL (8.5-10.1); Total Protein 7.1 g/dL (6.4-8.2)
[2017-03-09 07:28] LABS: Potassium 6.4 mmol/L (3.5-5.1)
[2017-03-09] MEDS: cefTRIAXone 1GM/10ml IVPUSH 10 ML IV SCH ×2 (09:00→12:28)
[2017-03-09] MEDS ORDERED: fentaNYL CITRATE 100 MCG/2 ML VL ONE (09:38)
[2017-03-09] MEDS ORDERED: MIDAZOLAM HCL 1MG/1ML-2 ML VIAL ONE (09:38)
[2017-03-09] MEDS ORDERED: IOHEXOL 350 MG/ML 100ML IJ ONE (09:39)
[2017-03-09] MEDS ORDERED: LIDOCAINE 2%HCL (LOCAL ANESTH.) INJ 20ML MDV ONE (09:39)
[2017-03-09] MEDS: IBUPROFEN 800 MG TAB PO SCH ×3 (10:00→20:56)
[2017-03-09] MEDS: METOPROLOL TARTRATE 50 MG TAB PO SCH ×3 (10:00→20:56)
[2017-03-09] MEDS: NIFEdipine ER 30 MG TAB PO SCH ×2 (10:00→12:32)
[2017-03-09] MEDS: predniSONE 20 MG TAB PO SCH ×2 (10:00→12:32)
[2017-03-09] MEDS ORDERED: HEPARIN 1,000 UNITS/ml 1ML VIAL ONE ×2 (10:10→10:12)
[2017-03-09] MEDS ORDERED: HEPARIN SODIUM (PORCINE) 5000 UNITS/ML 1ML VIAL ONE (10:13)
[2017-03-09] MEDS ORDERED: EPOETIN ALFA 10,000 UNIT/1 ML VIAL IV ONE (12:00)
[2017-03-09] MEDS ORDERED: SODIUM CHL 0.9% 1000 ML BAG XX ONE (12:00)
[2017-03-09] MEDS ORDERED: diphenhdrAMINE HCL 50 MG/1 ML VL IV ONE (15:45)
[2017-03-10] MEDS ORDERED: cloNIDine HCL 0.1 MG TAB PO PRN (00:45)
[2017-03-10] MEDS: HYDROmorphone HCL 2 MG/ML VL IV PRN ×3 (01:36→09:42)
[2017-03-10] MEDS: ONDANSETRON HCL 4 MG/2 ML VIAL IV PRN ×3 (01:36→09:42)
[2017-03-10 05:00] VITALS: BP 143/94
[2017-03-10] MEDS: cloNIDine HCL 0.1 MG TAB PO SCH ×2 (05:24→13:30)
[2017-03-10 08:00] VITALS: BP 152/99
[2017-03-10 08:59] VITALS: BP 152/99
[2017-03-10] MEDS: predniSONE 20 MG TAB PO SCH (09:06)
[2017-03-10] MEDS: IBUPROFEN 800 MG TAB PO SCH (09:06)
[2017-03-10] MEDS: cefTRIAXone 1GM/10ml IVPUSH 10 ML IV SCH (09:07)
[2017-03-10] MEDS: METOPROLOL TARTRATE 50 MG TAB PO SCH (09:07)
[2017-03-10] MEDS: NIFEdipine ER 30 MG TAB PO SCH (09:07)
[2017-03-10 12:07] VITALS: BP 152/99
== END 2017-03-10 16:52 | disposition home or self-care (01) | DRG 252 ==
LOC: ER 00:59 → TELE 01:00 → TELE-WESTW 17:07
PROVIDERS: ADMIT Nurse Practitioner Family; ATTEND Internal Medicine Pulmonary Disease
PROC: 5A1D70Z Performance of Urinary Filtration, Intermittent, Less than 6 Hours Per Day (ICD-10-PCS; 2017-03-06)
PROC: 05753ZZ Dilation of Right Subclavian Vein, Percutaneous Approach (ICD-10-PCS; principal; 2017-03-09)
PROC: B51M1ZZ Fluoroscopy of Right Upper Extremity Veins using Low Osmolar Contrast (ICD-10-PCS; 2017-03-09)
PROC: 5A1D70Z Performance of Urinary Filtration, Intermittent, Less than 6 Hours Per Day (ICD-10-PCS; 2017-03-09)
DX: T82.7XXA Infection and inflammatory reaction due to other cardiac and vascular devices, implants and grafts, initial encounter (principal); N18.6 End stage renal disease; I82.290 Acute embolism and thrombosis of other thoracic veins; I12.0 Hypertensive chronic kidney disease with stage 5 chronic kidney disease or end stage renal disease; E87.1 Hypo-osmolality and hyponatremia; E44.1 Mild protein-calorie malnutrition; T82.898A Other specified complication of vascular prosthetic devices, implants and grafts, initial encounter; L03.113 Cellulitis of right upper limb; L03.114 Cellulitis of left upper limb; F41.9 Anxiety disorder, unspecified; E87.5 Hyperkalemia; D64.9 Anemia, unspecified; J45.909 Unspecified asthma, uncomplicated; Z79.899 Other long term (current) drug therapy; Z82.49 Family history of ischemic heart disease and other diseases of the circulatory system; Z83.3 Family history of diabetes mellitus; Z99.2 Dependence on renal dialysis; Z84.1 Family history of disorders of kidney and ureter; Z68.24 Body mass index [BMI] 24.0-24.9, adult; Y83.9 Surgical procedure, unspecified as the cause of abnormal reaction of the patient, or of later complication, without mention of misadventure at the time of the procedure
CPT/HCPCS: 36415; 37248; 71045; 73200; 76080; 76937; 80048; 80053; 80202; 85025; 85610; 85730; 86850; 86900; 86901; 87040; 87081; 90935; 93005; 93971; 96365; 96372; 96375; 96376; 99152; J0885; J1642; J2250; J2405; J3490; J7060; Q4081

== ENCOUNTER 2017-03-13 05:31 | Inpatient (IN) | payer MEDICARE, MEDICAID ==
[~2017-03-13] VITALS: Ht 165.1 cm; Wt 63.5 kg
[2017-03-13] MEDS: ACCU-CHEK COMFORT CURVE STRIP VI SCH ×15 (03:18→22:15)
[2017-03-13 06:29] LABS: Basophils # (auto) 0 uL; Basophils % (auto) 0.3 % (0.0-2.0); Eosinophils # (auto) 0.1 uL; Eosinophils % (auto) 1.6 % (0.0-7.0); Hematocrit 30.9 % (41.0-53.0); Hemoglobin 10.2 g/dL (13.5-17.5); Lymphocytes # (auto) 0.5 uL; Lymphocytes % (auto) 6.6 % (10.0-50.0); Mean Corpuscular Hemoglobin 29.3 pg (28.0-32.0); Mean Corpuscular Volume 88.6 fL (80.0-100.0); Monocytes # (auto) 0.5 uL; Monocytes % (auto) 6.7 % (0.0-12.0); Neutrophils # (auto) 5.8 uL; Neutrophils % (auto) 84.8 % (37.0-80.0); Platelet Count (auto) 226 10^3/uL (140-450); Red Blood Cells 3.49 10^6/uL (4.5-5.90); Red Cell Distribution Width 16.7 % (11.8-14.3); White Blood Cell 6.9 10^3/uL (4.4-10.8)
[2017-03-13 06:37] LABS: INR 1.1 (0.9-1.15); Partial Thromboplastin Time 27.5 sec (22.64-33.71)
[2017-03-13 06:52] LABS: Albumin 3.2 g/dL (3.4-5.0); Calcium 9.5 mg/dL (8.5-10.1); Magnesium 2.3 mg/dL (1.6-2.6)
[2017-03-13] MEDS ORDERED: NITROGLYCERIN 0.4 MG SL TAB SL ONE ×2 (06:55→07:00)
[2017-03-13 06:56] LABS: Bilirubin, Total 0.4 mg/dL (0.2-1.0); Total Protein 6.4 g/dL (6.4-8.2)
[2017-03-13] MEDS ORDERED: ASPirin-EC 81 mg tab PO ONE (06:56)
[2017-03-13] MEDS ORDERED: ASPirin 81 mg TAB PO ONE (07:00)
[2017-03-13] MEDS ORDERED: ALBUTEROL SULF 2.5 MG/0.5ML(0.5%) NEB SOLN NEB STA (07:17)
[2017-03-13 07:18] LABS: Potassium 6.8 mmol/L (3.5-5.1)
[2017-03-13] MEDS ORDERED: NITROGLYCERIN 50MG/250ML 250 ML IV ONE ×2 (07:18→07:30)
[2017-03-13 07:27] LABS: BUN/Creatinine Ratio 7.3
[2017-03-13] MEDS ORDERED: DEXTROSE (50%) 50ML SYRG IV ONE (07:30)
[2017-03-13] MEDS: NITROGLYCERIN 50MG/250ML 250 ML IV SCH (07:30)
[2017-03-13] MEDS ORDERED: InsuLIN REG 1unit/0.01ml Soln (100units/ml) IV ONE (07:30)
[2017-03-13] MEDS ORDERED: HYDROmorphone HCL 2 MG/ML VL IV ONE (07:30)
[2017-03-13] MEDS ORDERED: ONDANSETRON HCL 4 MG/2 ML VIAL IV ONE (07:30)
[2017-03-13] MEDS ORDERED: CALCIUM GLUC 4.65meq/50ml D5AE 50 ML IV ONE (07:30)
[2017-03-13] MEDS ORDERED: SODIUM BICARBONATE 8.4% INJ 50ML SYRINGE IV ONE (07:30)
[2017-03-13] MEDS ORDERED: SODIUM POLYSTYRENE SULF 15GM/60ML SUSP PO ONE (07:30)
[2017-03-13] MEDS ORDERED: PROMETHAZINE HCL 25 MG/ML 1ML ONE (08:10)
[2017-03-13] MEDS ORDERED: PROMETHAZINE HCL 25 MG/ML 1ML IV ONE (08:30)
[2017-03-13] MEDS ORDERED: DEXTROSE 50% SYRINGE 50 ML IV ONE (08:55)
[2017-03-13] MEDS ORDERED: DEXTROSE (50%) 50ML SYRG IV PRN (09:15)
[2017-03-13] MEDS ORDERED: cefTRIAXone 1GM/10ml IVPUSH 10 ML IV ONE (09:15)
[2017-03-13] MEDS ORDERED: NITROGLYCERIN 0.4 MG SL TAB SL PRN (09:30)
[2017-03-13] MEDS ORDERED: MORPHINE SULFATE 10 MG/ML INJ 1ML SDV IV PRN ×4 (09:30→11:00)
[2017-03-13] MEDS ORDERED: ACETAMINOPHEN 325 MG TAB PO PRN (09:30)
[2017-03-13] MEDS ORDERED: TEMAZEPAM 15 MG CAP PO PRN (09:30)
[2017-03-13] MEDS ORDERED: DOCUSATE SOD 100 MG CAP PO PRN (09:30)
[2017-03-13] MEDS ORDERED: FAMOTIDINE 20 MG TAB PO SCH (10:00)
[2017-03-13] MEDS: LOSARTAN POTASSIUM 50 MG TAB PO SCH (10:00)
[2017-03-13] MEDS: METOPROLOL TARTRATE 50 MG TAB PO SCH ×3 (10:37→22:00)
[2017-03-13] MEDS: NIFEdipine ER 30 MG TAB PO SCH ×2 (10:38→14:34)
[2017-03-13] MEDS ORDERED: MORPHINE SULFATE 4 MG/ML SYR/VIAL ONE (10:40)
[2017-03-13] MEDS ORDERED: EPOETIN ALFA 3,000 UNIT/1 ML VIAL IV ONE (11:30)
[2017-03-13] MEDS ORDERED: EPOETIN ALFA 2,000 UNIT/1 ML VIAL IV ONE (11:30)
[2017-03-13] MEDS: MULTIPLE VITAMIN TAB PO SCH (11:42)
[2017-03-13] MEDS: PANTOPRAZOLE 40 MG TAB PO SCH (11:42)
[2017-03-13] MEDS: MINOXIDIL 10 MG TAB PO SCH ×2 (11:42→22:00)
[2017-03-13] MEDS: IPRATROPIUM BROM 0.5 MG/2.5ML INH SOL NEB SCH ×2 (12:00→18:00)
[2017-03-13] MEDS: ALBUTEROL SULF 2.5 MG/0.5ML(0.5%) NEB SOLN NEB SCH ×2 (12:00→18:00)
[2017-03-13] MEDS: AZITHROMYCIN 500MG/ 250ML 250 ML IV SCH (12:13)
[2017-03-13] MEDS: CALCIUM ACETATE 667 MG CAP PO SCH ×2 (12:41→18:24)
[2017-03-13] MEDS ORDERED: HYDROmorphone HCL 2 MG/ML VL ONE (13:07)
[2017-03-13] MEDS: PROMETHAZINE HCL 25 MG/ML 1ML IV PRN (13:09)
[2017-03-13] MEDS: HYDROmorphone HCL 2 MG/ML VL IV PRN ×3 (13:15→20:50)
[2017-03-13] MEDS ORDERED: diphenhdrAMINE HCL 50 MG/1 ML VL ONE (13:54)
[2017-03-13] MEDS: SODIUM CHLOR 0.9% PF (SALINE LOCK) 10ML VIAL IV SCH ×2 (14:00→22:20)
[2017-03-13] MEDS: diphenhdrAMINE HCL 50 MG/1 ML VL IV PRN ×3 (14:02→21:40)
[2017-03-13] MEDS: cloNIDine HCL 0.1 MG TAB PO SCH ×2 (14:35→22:00)
[2017-03-13 15:22] VITALS: BP 174/113
[2017-03-13] MEDS: cloNIDine HCL 0.1 MG TAB PO PRN (15:50)
[2017-03-13] MEDS: ONDANSETRON HCL 4 MG/2 ML VIAL IV PRN (17:51)
[2017-03-13 17:53] LABS: Albumin 3.5 g/dL (3.4-5.0); BUN/Creatinine Ratio 5.8; Calcium 9.5 mg/dL (8.5-10.1); Potassium 4.3 mmol/L (3.5-5.1)
[2017-03-13 17:56] LABS: Bilirubin, Total 0.7 mg/dL (0.2-1.0); Total Protein 6.9 g/dL (6.4-8.2)
[2017-03-13] MEDS ORDERED: amLODIPine BESYLATE 5 MG TAB PO ONE (18:15)
[2017-03-13] MEDS: ENALAPRILAT 1.25 MG/ML-1ML VIAL IV PRN (18:38)
[2017-03-14] MEDS: ACCU-CHEK COMFORT CURVE STRIP VI SCH ×17 (00:15→17:15)
[2017-03-14] MEDS: PROMETHAZINE HCL 25 MG/ML 1ML IV PRN ×4 (01:00→18:44)
[2017-03-14] MEDS: HYDROmorphone HCL 2 MG/ML VL IV PRN ×5 (01:00→23:17)
[2017-03-14] MEDS ORDERED: SUCCINYLCHOLINE CHLORIDE 20 MG/ML 10ML VIAL IV ONE (01:45)
[2017-03-14] MEDS ORDERED: ETOMIDATE (2MG/ML) 20ML VIAL IV ONE (01:45)
[2017-03-14] MEDS: SODIUM CHLOR 0.9% PF (SALINE LOCK) 10ML VIAL IV SCH ×3 (06:00→22:00)
[2017-03-14] MEDS: cloNIDine HCL 0.1 MG TAB PO SCH ×3 (06:00→21:48)
[2017-03-14] MEDS: IPRATROPIUM BROM 0.5 MG/2.5ML INH SOL NEB SCH ×4 (06:05→19:37)
[2017-03-14] MEDS: ALBUTEROL SULF 2.5 MG/0.5ML(0.5%) NEB SOLN NEB SCH ×4 (06:05→19:37)
[2017-03-14] MEDS: NITROGLYCERIN 50MG/250ML 250 ML IV SCH (07:39)
[2017-03-14] MEDS: CALCIUM ACETATE 667 MG CAP PO SCH ×3 (09:30→21:00)
[2017-03-14] MEDS: MULTIPLE VITAMIN TAB PO SCH (09:31)
[2017-03-14] MEDS: ONDANSETRON HCL 4 MG/2 ML VIAL IV PRN ×3 (09:31→23:17)
[2017-03-14] MEDS: cefTRIAXone 1GM/10ml IVPUSH 10 ML IV SCH (09:31)
[2017-03-14] MEDS: LOSARTAN POTASSIUM 50 MG TAB PO SCH (09:39)
[2017-03-14] MEDS: NIFEdipine ER 30 MG TAB PO SCH (09:39)
[2017-03-14] MEDS: METOPROLOL TARTRATE 50 MG TAB PO SCH ×2 (09:39→21:49)
[2017-03-14] MEDS: MINOXIDIL 10 MG TAB PO SCH ×2 (09:39→21:49)
[2017-03-14] MEDS: PANTOPRAZOLE 40 MG TAB PO SCH (09:45)
[2017-03-14 10:02] LABS: Basophils # (auto) 0 uL; Basophils % (auto) 0.3 % (0.0-2.0); Eosinophils # (auto) 0.1 uL; Eosinophils % (auto) 1.4 % (0.0-7.0); Hematocrit 30.6 % (41.0-53.0); Hemoglobin 10.1 g/dL (13.5-17.5); Lymphocytes # (auto) 0.4 uL; Lymphocytes % (auto) 4.7 % (10.0-50.0); Mean Corpuscular Hemoglobin 29.1 pg (28.0-32.0); Mean Corpuscular Hgb Conc. 33.1 g/dL (32.0-36.0); Mean Corpuscular Volume 87.9 fL (80.0-100.0); Monocytes # (auto) 0.8 uL; Monocytes % (auto) 10.2 % (0.0-12.0); Neutrophils # (auto) 6.4 uL; Neutrophils % (auto) 83.4 % (37.0-80.0); Platelet Count (auto) 277 10^3/uL (140-450); Red Blood Cells 3.49 10^6/uL (4.5-5.90); Red Cell Distribution Width 17.1 % (11.8-14.3); White Blood Cell 7.7 10^3/uL (4.4-10.8)
[2017-03-14] MEDS: AZITHROMYCIN 500MG/ 250ML 250 ML IV SCH (10:05)
[2017-03-14 10:32] LABS: Albumin 3.2 g/dL (3.4-5.0); BUN/Creatinine Ratio 5.5; Bilirubin, Total 0.6 mg/dL (0.2-1.0); Calcium 9.3 mg/dL (8.5-10.1); Potassium 5.1 mmol/L (3.5-5.1); Total Protein 6.9 g/dL (6.4-8.2)
[2017-03-14] MEDS: ENALAPRILAT 1.25 MG/ML-1ML VIAL IV PRN (11:30)
[2017-03-14] MEDS: cloNIDine HCL 0.1 MG TAB PO PRN (12:42)
[2017-03-14] MEDS: diphenhdrAMINE HCL 50 MG/1 ML VL IV PRN ×2 (14:21→20:26)
[2017-03-14] MEDS ORDERED: LABETALOL HCL 5 MG/ML ML 20ML VIAL IV PRN (14:45)
[2017-03-15] MEDS: ALBUTEROL SULF 2.5 MG/0.5ML(0.5%) NEB SOLN NEB SCH ×3 (00:40→12:01)
[2017-03-15] MEDS: IPRATROPIUM BROM 0.5 MG/2.5ML INH SOL NEB SCH ×3 (00:40→12:01)
[2017-03-15] MEDS: diphenhdrAMINE HCL 50 MG/1 ML VL IV PRN ×2 (03:20→09:13)
[2017-03-15] MEDS: HYDROmorphone HCL 2 MG/ML VL IV PRN ×3 (03:20→11:25)
[2017-03-15] MEDS: ONDANSETRON HCL 4 MG/2 ML VIAL IV PRN ×3 (03:20→11:25)
[2017-03-15] MEDS: SODIUM CHLOR 0.9% PF (SALINE LOCK) 10ML VIAL IV SCH (06:21)
[2017-03-15] MEDS: cloNIDine HCL 0.1 MG TAB PO SCH (06:25)
[2017-03-15 08:02] LABS: Basophils # (auto) 0 uL; Basophils % (auto) 0.4 % (0.0-2.0); Eosinophils # (auto) 0.3 uL; Hematocrit 28.2 % (41.0-53.0); Hemoglobin 9.5 g/dL (13.5-17.5); Lymphocytes # (auto) 0.6 uL; Lymphocytes % (auto) 9.1 % (10.0-50.0); Mean Corpuscular Hemoglobin 29.2 pg (28.0-32.0); Mean Corpuscular Hgb Conc. 33.5 g/dL (32.0-36.0); Mean Corpuscular Volume 87.3 fL (80.0-100.0); Monocytes # (auto) 0.7 uL; Monocytes % (auto) 9.9 % (0.0-12.0); Neutrophils % (auto) 75.6 % (37.0-80.0); Platelet Count (auto) 279 10^3/uL (140-450); Red Blood Cells 3.23 10^6/uL (4.5-5.90); Red Cell Distribution Width 16.8 % (11.8-14.3); White Blood Cell 6.7 10^3/uL (4.4-10.8)
[2017-03-15 08:35] LABS: BUN/Creatinine Ratio 5.2; Calcium 9.1 mg/dL (8.5-10.1); Magnesium 2.4 mg/dL (1.6-2.6)
[2017-03-15 08:37] LABS: Potassium 5.8 mmol/L (3.5-5.1)
[2017-03-15] MEDS: cefTRIAXone 1GM/10ml IVPUSH 10 ML IV SCH (09:11)
[2017-03-15] MEDS: CALCIUM ACETATE 667 MG CAP PO SCH ×2 (09:11→13:30)
[2017-03-15] MEDS ORDERED: NIFEdipine ER 30 MG TAB PO SCH (10:00)
[2017-03-15] MEDS: MINOXIDIL 10 MG TAB PO SCH (10:26)
[2017-03-15] MEDS: PANTOPRAZOLE 40 MG TAB PO SCH (10:26)
[2017-03-15] MEDS: METOPROLOL TARTRATE 50 MG TAB PO SCH (10:26)
[2017-03-15] MEDS: MULTIPLE VITAMIN TAB PO SCH (10:26)
[2017-03-15] MEDS: AZITHROMYCIN 500MG/ 250ML 250 ML IV SCH (10:27)
[2017-03-15] MEDS: LOSARTAN POTASSIUM 50 MG TAB PO SCH (10:27)
[2017-03-15 12:20] LABS: Hepatitis B Surface Antibody Positive
[2017-03-15 12:31] LABS: Hepatitis B Surface Antigen Negative (Negative)
[2017-03-15 12:58] LABS: Hepatitis C Antibody Negative (Negative)
[2017-03-15 12:59] LABS: Hepatitis A Total Antibody Negative; Hepatitis B Core Total AB Negative
[2017-03-15 13:01] VITALS: BP 134/65
== END 2017-03-15 14:15 | disposition left against medical advice (07) | DRG 291 ==
LOC: ER 05:32 → TELE 05:33
PROVIDERS: ADMIT Internal Medicine; ATTEND Internal Medicine
PROC: 5A1D70Z Performance of Urinary Filtration, Intermittent, Less than 6 Hours Per Day (ICD-10-PCS; principal; 2017-03-13)
DX: I13.2 Hypertensive heart and chronic kidney disease with heart failure and with stage 5 chronic kidney disease, or end stage renal disease (principal); J18.9 Pneumonia, unspecified organism; J45.901 Unspecified asthma with (acute) exacerbation; E44.1 Mild protein-calorie malnutrition; E87.1 Hypo-osmolality and hyponatremia; E87.5 Hyperkalemia; N18.6 End stage renal disease; I50.33 Acute on chronic diastolic (congestive) heart failure; F11.20 Opioid dependence, uncomplicated; Z99.2 Dependence on renal dialysis; D63.8 Anemia in other chronic diseases classified elsewhere; F41.9 Anxiety disorder, unspecified; G89.29 Other chronic pain; Z82.49 Family history of ischemic heart disease and other diseases of the circulatory system; Z83.3 Family history of diabetes mellitus; Z91.19 Patient's noncompliance with other medical treatment and regimen; Z88.8 Allergy status to other drugs, medicaments and biological substances; Z68.23 Body mass index [BMI] 23.0-23.9, adult
CPT/HCPCS: 36415; 71045; 80048; 80053; 82962; 83735; 83880; 84484; 85025; 85610; 85730; 86704; 86706; 86708; 86803; 87340; 90935; 93005; 94640; 96372; 96374; 96375; J0610; J1815; J2405; Q4081

== ENCOUNTER 2017-03-20 06:26 | Inpatient (IN) | payer MEDICARE, MEDICAID ==
[~2017-03-20] VITALS: Ht 165.1 cm; Wt 72.3 kg
[2017-03-20] MEDS: IPRATROPIUM BROM 0.5 MG/2.5ML INH SOL NEB SCH ×2 (05:26→18:22)
[2017-03-20] MEDS: ALBUTEROL SULF 2.5 MG/0.5ML(0.5%) NEB SOLN NEB SCH ×2 (05:26→18:22)
[2017-03-20 07:03] LABS: Basophils # (auto) 0.1 uL; Basophils % (auto) 1.1 % (0.0-2.0); Eosinophils # (auto) 0.3 uL; Hematocrit 31.9 % (41.0-53.0); Hemoglobin 10.4 g/dL (13.5-17.5); Lymphocytes # (auto) 0.5 uL; Lymphocytes % (auto) 5.9 % (10.0-50.0); Mean Corpuscular Hgb Conc. 32.7 g/dL (32.0-36.0); Mean Corpuscular Volume 88.7 fL (80.0-100.0); Monocytes # (auto) 0.5 uL; Monocytes % (auto) 5.6 % (0.0-12.0); Neutrophils % (auto) 84.4 % (37.0-80.0); Platelet Count (auto) 252 10^3/uL (140-450); Red Blood Cells 3.59 10^6/uL (4.5-5.90); White Blood Cell 8.3 10^3/uL (4.4-10.8)
[2017-03-20] MEDS ORDERED: SODIUM CHLORIDE 0.9% 1,000 ML IV ONE (07:09)
[2017-03-20] MEDS ORDERED: hydrALAZINE HCL 20 MG/ML VL IV ONE (07:15)
[2017-03-20 07:18] LABS: Albumin 3.2 g/dL (3.4-5.0); BUN/Creatinine Ratio 6.6; Calcium 9.8 mg/dL (8.5-10.1); Potassium 5.4 mmol/L (3.5-5.1)
[2017-03-20 07:23] LABS: Bilirubin, Total 0.4 mg/dL (0.2-1.0); Total Protein 6.9 g/dL (6.4-8.2)
[2017-03-20] MEDS ORDERED: cefTRIAXone 1GM/10ml IVPUSH 10 ML IV ONE (08:00)
[2017-03-20] MEDS ORDERED: PROMETHAZINE HCL 25 MG/ML 1ML IV ONE (08:15)
[2017-03-20] MEDS ORDERED: LABETALOL HCL 5 MG/ML ML 20ML VIAL IV ONE (08:30)
[2017-03-20] MEDS ORDERED: NALBUPHINE HCL 10 MG/1ml INJECTION IV ONE (08:30)
[2017-03-20] MEDS ORDERED: cloNIDine HCL 0.1 MG TAB PO ONE (08:30)
[2017-03-20] MEDS ORDERED: FUROSEMIDE 40 MG/4 ML VIAL IV ONE (08:30)
[2017-03-20] MEDS ORDERED: NITROGLYCERIN 50MG/250ML 250 ML IV SCH (10:24)
[2017-03-20] MEDS ORDERED: NITROGLYCERIN 50MG/250ML 250 ML IV ONE (10:26)
[2017-03-20] MEDS ORDERED: IPRATROPIUM BROM 0.5 MG/2.5ML INH SOL NEB ONE (10:30)
[2017-03-20] MEDS ORDERED: ALBUTEROL SULF 2.5 MG/0.5ML(0.5%) NEB SOLN NEB ONE (10:30)
[2017-03-20] MEDS ORDERED: MORPHINE SULF INJ 2 MG/ML SYRINGE 1ML IV PRN (11:00)
[2017-03-20] MEDS ORDERED: ACETAMINOPHEN 500 MG TAB PO PRN (11:00)
[2017-03-20] MEDS ORDERED: PATIENTS OWN MEDICATION (Clonidine Hydrochloride (Clonidine Hcl) 1 TAB) PO SCH (11:00)
[2017-03-20] MEDS ORDERED: NITROGLYCERIN 0.4 MG SL TAB SL PRN (11:00)
[2017-03-20] MEDS ORDERED: CARVEDILOL 3.125 MG TAB PO SCH (11:00)
[2017-03-20] MEDS ORDERED: PATIENTS OWN MEDICATION (Metoprolol Tartrate 100 MG) PO SCH (11:00)
[2017-03-20] MEDS ORDERED: MORPHINE SULFATE 10 MG/ML INJ 1ML SDV IV PRN (11:00)
[2017-03-20] MEDS ORDERED: OSELTAMIVIR 75 MG CAP PO ONE (11:00)
[2017-03-20] MEDS ORDERED: ALBUTEROL SULF 2.5 MG/0.5ML(0.5%) NEB SOLN NEB PRN (11:00)
[2017-03-20] MEDS: NITROGLYCERIN 50MG/250ML 250 ML IV SCH (11:25)
[2017-03-20 11:32] VITALS: BP 176/111
[2017-03-20] MEDS ORDERED: NIFE90TA30 PO (11:34)
[2017-03-20] MEDS ORDERED: OSELTAMIVIR 30 MG CAP PO ONE (11:45)
[2017-03-20] MEDS: PANTOPRAZOLE 40 MG TAB PO SCH (12:45)
[2017-03-20] MEDS: AZITHROMYCIN 500MG/ 250ML 250 ML IV SCH (12:45)
[2017-03-20] MEDS: CALCIUM ACETATE 667 MG CAP PO SCH ×2 (12:45→19:04)
[2017-03-20] MEDS: MINOXIDIL 10 MG TAB PO SCH ×2 (12:45→21:46)
[2017-03-20] MEDS: NIFEdipine ER 30 MG TAB PO SCH (12:45)
[2017-03-20] MEDS: METOPROLOL TARTRATE 50 MG TAB PO SCH ×2 (12:45→21:46)
[2017-03-20] MEDS: LORazepam 0.5 MG TAB PO PRN ×2 (13:16→21:46)
[2017-03-20] MEDS: PROMETHAZINE HCL 25 MG/ML 1ML IV PRN ×2 (13:16→19:44)
[2017-03-20] MEDS: MORPHINE SULFATE 4 MG/ML SYR/VIAL IV PRN ×2 (13:16→19:44)
[2017-03-20] MEDS ORDERED: CALCIUM ACETATE 667 MG CAP PO SCH (14:00)
[2017-03-20] MEDS: cloNIDine HCL 0.1 MG TAB PO SCH ×2 (14:00→21:46)
[2017-03-20] MEDS ORDERED: diphenhdrAMINE HCL 25 MG CAP PO ONE (14:24)
[2017-03-20] MEDS ORDERED: diphenhdrAMINE HCL 25 MG CAP PO PRN (14:30)
[2017-03-20] MEDS ORDERED: EPOETIN ALFA 2,000 UNIT/1 ML VIAL IV ONE ×2 (17:00→17:15)
[2017-03-20] MEDS ORDERED: HEPARIN SODIUM (PORCINE) 5000 UNITS/ML 1ML VIAL IV ONE (17:00)
[2017-03-20] MEDS ORDERED: EPOETIN ALFA 3,000 UNIT/1 ML VIAL IV ONE (17:15)
[2017-03-20] MEDS: TEMAZEPAM 15 MG CAP PO PRN (21:46)
[2017-03-20] MEDS ORDERED: OSELTAMIVIR 75 MG CAP PO SCH (22:00)
[2017-03-21] MEDS ORDERED: ONDANSETRON HCL 4 MG/2 ML VIAL ONE (00:01)
[2017-03-21] MEDS ORDERED: MORPHINE SULF INJ 2 MG/ML SYRINGE 1ML ONE ×2 (00:01→04:01)
[2017-03-21] MEDS: MORPHINE SULFATE 4 MG/ML SYR/VIAL IV PRN ×3 (00:10→08:07)
[2017-03-21] MEDS: ONDANSETRON HCL 4 MG/2 ML VIAL IV PRN ×2 (00:10→04:06)
[2017-03-21] MEDS: IPRATROPIUM BROM 0.5 MG/2.5ML INH SOL NEB SCH ×3 (00:12→18:28)
[2017-03-21] MEDS: ALBUTEROL SULF 2.5 MG/0.5ML(0.5%) NEB SOLN NEB SCH ×3 (00:12→18:28)
[2017-03-21] MEDS: cloNIDine HCL 0.1 MG TAB PO SCH ×2 (05:16→18:20)
[2017-03-21 05:22] LABS: Basophils # (auto) 0 uL; Basophils % (auto) 0.4 % (0.0-2.0); Eosinophils # (auto) 0.3 uL; Eosinophils % (auto) 3.1 % (0.0-7.0); Hemoglobin 9.8 g/dL (13.5-17.5); Lymphocytes # (auto) 0.3 uL; Lymphocytes % (auto) 3.8 % (10.0-50.0); Mean Corpuscular Hemoglobin 29.7 pg (28.0-32.0); Mean Corpuscular Hgb Conc. 33.9 g/dL (32.0-36.0); Mean Corpuscular Volume 87.6 fL (80.0-100.0); Monocytes # (auto) 0.5 uL; Monocytes % (auto) 5.7 % (0.0-12.0); Neutrophils # (auto) 7.7 uL; Platelet Count (auto) 277 10^3/uL (140-450); Red Blood Cells 3.31 10^6/uL (4.5-5.90); Red Cell Distribution Width 16.9 % (11.8-14.3); White Blood Cell 8.8 10^3/uL (4.4-10.8)
[2017-03-21 05:50] LABS: Albumin 3.3 g/dL (3.4-5.0); BUN/Creatinine Ratio 5.3; Bilirubin, Total 0.7 mg/dL (0.2-1.0); Calcium 9.4 mg/dL (8.5-10.1); Potassium 5.1 mmol/L (3.5-5.1); Total Protein 6.9 g/dL (6.4-8.2)
[2017-03-21] MEDS: CALCIUM ACETATE 667 MG CAP PO SCH ×3 (08:33→18:20)
[2017-03-21] MEDS ORDERED: cefTRIAXone 1GM/10ml IVPUSH 10 ML IV SCH (09:00)
[2017-03-21] MEDS ORDERED: NIFEDIPINE PO SCH (10:00)
[2017-03-21] MEDS ORDERED: OMEPRAZOLE 20MG/10ML ORAL SUSP PO SCH (10:00)
[2017-03-21] MEDS: MINOXIDIL 10 MG TAB PO SCH ×2 (10:07→21:52)
[2017-03-21] MEDS: AZITHROMYCIN 500MG/ 250ML 250 ML IV SCH (10:07)
[2017-03-21] MEDS: METOPROLOL TARTRATE 50 MG TAB PO SCH ×2 (10:07→21:52)
[2017-03-21] MEDS: PANTOPRAZOLE 40 MG TAB PO SCH (10:07)
[2017-03-21] MEDS: NIFEdipine ER 30 MG TAB PO SCH (10:07)
[2017-03-21] MEDS: NITROGLYCERIN 50MG/250ML 250 ML IV SCH (11:37)
[2017-03-21] MEDS ORDERED: OSELTAMIVIR 30 MG CAP PO SCH (13:00)
[2017-03-21] MEDS: PROMETHAZINE HCL 25 MG/ML 1ML IV PRN (16:03)
[2017-03-21] MEDS: traMADol HCL 50 MG TAB PO PRN (16:04)
[2017-03-22] MEDS: cloNIDine HCL 0.1 MG TAB PO SCH ×4 (00:06→18:36)
[2017-03-22] MEDS: ALBUTEROL SULF 2.5 MG/0.5ML(0.5%) NEB SOLN NEB SCH ×4 (00:20→18:05)
[2017-03-22] MEDS: IPRATROPIUM BROM 0.5 MG/2.5ML INH SOL NEB SCH ×4 (00:20→18:05)
[2017-03-22] MEDS: traMADol HCL 50 MG TAB PO PRN ×3 (00:48→16:34)
[2017-03-22] MEDS: PROMETHAZINE HCL 25 MG/ML 1ML IV PRN ×2 (00:49→09:54)
[2017-03-22] MEDS: CALCIUM ACETATE 667 MG CAP PO SCH ×4 (08:00→18:36)
[2017-03-22] MEDS: MINOXIDIL 10 MG TAB PO SCH ×2 (09:53→23:11)
[2017-03-22] MEDS: METOPROLOL TARTRATE 50 MG TAB PO SCH ×2 (09:53→23:12)
[2017-03-22] MEDS: AZITHROMYCIN 500MG/ 250ML 250 ML IV SCH (09:53)
[2017-03-22] MEDS: PANTOPRAZOLE 40 MG TAB PO SCH (09:53)
[2017-03-22] MEDS: NIFEdipine ER 30 MG TAB PO SCH (09:53)
[2017-03-22] MEDS ORDERED: RISP0.5T45 PO (10:52)
[2017-03-22] MEDS ORDERED: ONDA-101 PO (10:52)
[2017-03-22] MEDS ORDERED: HYDR1TAB97 PO (10:52)
[2017-03-22] MEDS: NITROGLYCERIN 50MG/250ML 250 ML IV SCH (10:56)
[2017-03-22] MEDS ORDERED: HYDROcodone-ACET 5/325MG TAB PO PRN (12:30)
[2017-03-22] MEDS: diphenhdrAMINE HCL 25 MG CAP PO PRN ×2 (12:49→23:13)
[2017-03-22] MEDS ORDERED: cefTRIAXone 1GM/10ml IVPUSH 10 ML IV ONE (14:15)
[2017-03-22] MEDS ORDERED: hydrALAZINE HCL 25 MG TAB PO PRN (15:30)
[2017-03-22 20:45] VITALS: BP 144/78
[2017-03-22 22:00] VITALS: BP 144/78
[2017-03-22] MEDS: hydrALAZINE HCL 25 MG TAB PO SCH (23:11)
[2017-03-22 23:17] VITALS: BP 144/78
[2017-03-23] MEDS: traMADol HCL 50 MG TAB PO PRN ×2 (00:29→09:33)
[2017-03-23] MEDS: cloNIDine HCL 0.1 MG TAB PO SCH ×5 (00:39→18:06)
[2017-03-23 05:00] VITALS: BP 146/81
[2017-03-23 05:23] LABS: Basophils # (auto) 0 uL; Basophils % (auto) 0.4 % (0.0-2.0); Eosinophils # (auto) 0.3 uL; Hematocrit 29.4 % (41.0-53.0); Hemoglobin 9.9 g/dL (13.5-17.5); Lymphocytes # (auto) 0.4 uL; Lymphocytes % (auto) 4.5 % (10.0-50.0); Mean Corpuscular Hemoglobin 29.5 pg (28.0-32.0); Mean Corpuscular Hgb Conc. 33.5 g/dL (32.0-36.0); Mean Corpuscular Volume 88.1 fL (80.0-100.0); Monocytes # (auto) 0.7 uL; Monocytes % (auto) 8.9 % (0.0-12.0); Neutrophils # (auto) 6.4 uL; Neutrophils % (auto) 82.2 % (37.0-80.0); Platelet Count (auto) 243 10^3/uL (140-450); Red Blood Cells 3.34 10^6/uL (4.5-5.90); White Blood Cell 7.8 10^3/uL (4.4-10.8)
[2017-03-23 05:57] LABS: BUN/Creatinine Ratio 5.9; Calcium 8.9 mg/dL (8.5-10.1)
[2017-03-23] MEDS: diphenhdrAMINE HCL 25 MG CAP PO PRN (05:58)
[2017-03-23] MEDS: ALBUTEROL SULF 2.5 MG/0.5ML(0.5%) NEB SOLN NEB SCH ×3 (06:00→19:00)
[2017-03-23] MEDS: IPRATROPIUM BROM 0.5 MG/2.5ML INH SOL NEB SCH ×3 (06:00→19:00)
[2017-03-23 06:12] LABS: Potassium 6.6 mmol/L (3.5-5.1)
[2017-03-23] MEDS ORDERED: SODIUM POLYSTYRENE SULF 15GM/60ML SUSP PO ONE (06:45)
[2017-03-23] MEDS ORDERED: InsuLIN REG 1unit/0.01ml Soln (100units/ml) IV ONE (06:45)
[2017-03-23] MEDS ORDERED: CALCIUM GLUC 4.65meq/50ml D5AE 50 ML IV ONE (06:45)
[2017-03-23] MEDS ORDERED: SODIUM BICARBONATE 8.4 % INJ 50ML VIAL IV ONE (06:45)
[2017-03-23] MEDS ORDERED: DEXTROSE (50%) 50ML SYRG IV ONE (06:45)
[2017-03-23 08:48] VITALS: BP 139/74
[2017-03-23] MEDS: cefTRIAXone 1GM/10ml IVPUSH 10 ML IV SCH (09:33)
[2017-03-23] MEDS: CALCIUM ACETATE 667 MG CAP PO SCH ×3 (09:33→17:48)
[2017-03-23] MEDS ORDERED: SODIUM CHL 0.9% 1000 ML BAG XX ONE (09:45)
[2017-03-23] MEDS ORDERED: EPOETIN ALFA 10,000 UNIT/1 ML VIAL IV ONE (09:45)
[2017-03-23] MEDS: NITROGLYCERIN 50MG/250ML 250 ML IV SCH (10:56)
[2017-03-23] MEDS: AZITHROMYCIN 500MG/ 250ML 250 ML IV SCH (11:11)
[2017-03-23] MEDS ORDERED: diphenhdrAMINE HCL 50 MG/1 ML VL IM ONE (12:00)
[2017-03-23 12:57] VITALS: BP 141/66
[2017-03-23 16:11] VITALS: BP 131/64
[2017-03-23] MEDS: NIFEdipine ER 30 MG TAB PO SCH (16:15)
[2017-03-23] MEDS: MINOXIDIL 10 MG TAB PO SCH ×2 (16:15→21:26)
[2017-03-23] MEDS: PANTOPRAZOLE 40 MG TAB PO SCH (16:16)
[2017-03-23] MEDS: METOPROLOL TARTRATE 50 MG TAB PO SCH ×2 (16:16→21:26)
[2017-03-23] MEDS: hydrALAZINE HCL 25 MG TAB PO SCH ×2 (16:16→21:26)
[2017-03-23] MEDS: diphenhdrAMINE HCL 50 MG/1 ML VL IV PRN (21:25)
[2017-03-23] MEDS: HYDROCORTONE 1% TOPICAL CREAM 30 GM TUBE TOP SCH (21:27)
[2017-03-23 22:00] VITALS: BP 147/76
[2017-03-23] MEDS: TEMAZEPAM 15 MG CAP PO PRN (22:52)
[2017-03-24] MEDS: traMADol HCL 50 MG TAB PO PRN ×3 (00:05→18:19)
[2017-03-24] MEDS: cloNIDine HCL 0.1 MG TAB PO SCH ×4 (00:07→18:17)
[2017-03-24] MEDS: diphenhdrAMINE HCL 50 MG/1 ML VL IV PRN ×3 (03:23→16:27)
[2017-03-24 05:13] VITALS: BP 139/79
[2017-03-24] MEDS: IPRATROPIUM BROM 0.5 MG/2.5ML INH SOL NEB SCH ×3 (06:00→18:00)
[2017-03-24] MEDS: ALBUTEROL SULF 2.5 MG/0.5ML(0.5%) NEB SOLN NEB SCH ×3 (06:00→18:00)
[2017-03-24 08:00] VITALS: BP 128/85
[2017-03-24] MEDS: CALCIUM ACETATE 667 MG CAP PO SCH ×3 (08:18→18:17)
[2017-03-24] MEDS: cefTRIAXone 1GM/10ml IVPUSH 10 ML IV SCH (08:18)
[2017-03-24] MEDS: NITROGLYCERIN 50MG/250ML 250 ML IV SCH (09:10)
[2017-03-24] MEDS: hydrALAZINE HCL 25 MG TAB PO SCH ×2 (10:00→21:22)
[2017-03-24] MEDS: AZITHROMYCIN 500MG/ 250ML 250 ML IV SCH (10:10)
[2017-03-24] MEDS: METOPROLOL TARTRATE 50 MG TAB PO SCH ×2 (10:11→21:23)
[2017-03-24] MEDS: MINOXIDIL 10 MG TAB PO SCH ×2 (10:12→21:22)
[2017-03-24] MEDS: NIFEdipine ER 30 MG TAB PO SCH (10:12)
[2017-03-24] MEDS: HYDROCORTONE 1% TOPICAL CREAM 30 GM TUBE TOP SCH ×2 (10:13→21:23)
[2017-03-24] MEDS: PANTOPRAZOLE 40 MG TAB PO SCH (10:13)
[2017-03-24 11:39] VITALS: BP 136/75
[2017-03-24] MEDS ORDERED: EPOETIN ALFA 10,000 UNIT/1 ML VIAL IV ONE (12:15)
[2017-03-24 16:32] VITALS: BP 127/78
[2017-03-24] MEDS: TEMAZEPAM 15 MG CAP PO PRN (21:23)
[2017-03-24 22:00] VITALS: BP 153/77
[2017-03-24 23:00] VITALS: BP 149/80
[2017-03-25 05:00] VITALS: BP 147/91
[2017-03-25] MEDS: cloNIDine HCL 0.1 MG TAB PO SCH ×3 (05:14→12:57)
[2017-03-25] MEDS: diphenhdrAMINE HCL 50 MG/1 ML VL IV PRN ×2 (05:15→11:03)
[2017-03-25] MEDS: traMADol HCL 50 MG TAB PO PRN (05:15)
[2017-03-25 05:34] LABS: Basophils # (auto) 0 uL; Basophils % (auto) 0.9 % (0.0-2.0); Eosinophils # (auto) 0.2 uL; Eosinophils % (auto) 4.3 % (0.0-7.0); Hematocrit 29.2 % (41.0-53.0); Hemoglobin 9.7 g/dL (13.5-17.5); Lymphocytes # (auto) 0.4 uL; Lymphocytes % (auto) 7.7 % (10.0-50.0); Mean Corpuscular Hgb Conc. 33.2 g/dL (32.0-36.0); Mean Corpuscular Volume 87.3 fL (80.0-100.0); Monocytes # (auto) 0.9 uL; Monocytes % (auto) 15.4 % (0.0-12.0); Neutrophils % (auto) 71.7 % (37.0-80.0); Nucleated Red Blood Cells % 0.1 %; Platelet Count (auto) 208 10^3/uL (140-450); Red Blood Cells 3.34 10^6/uL (4.5-5.90); Red Cell Distribution Width 17.1 % (11.8-14.3); White Blood Cell 5.6 10^3/uL (4.4-10.8)
[2017-03-25 05:49] LABS: BUN/Creatinine Ratio 5.8; Calcium 8.9 mg/dL (8.5-10.1); Potassium 4.9 mmol/L (3.5-5.1)
[2017-03-25] MEDS: ALBUTEROL SULF 2.5 MG/0.5ML(0.5%) NEB SOLN NEB SCH ×3 (06:00→12:00)
[2017-03-25] MEDS: IPRATROPIUM BROM 0.5 MG/2.5ML INH SOL NEB SCH ×3 (06:00→12:00)
[2017-03-25] MEDS: cefTRIAXone 1GM/10ml IVPUSH 10 ML IV SCH (08:45)
[2017-03-25] MEDS: CALCIUM ACETATE 667 MG CAP PO SCH ×2 (08:45→12:57)
[2017-03-25 09:21] VITALS: BP 146/73
[2017-03-25] MEDS: MINOXIDIL 10 MG TAB PO SCH (10:46)
[2017-03-25] MEDS: PANTOPRAZOLE 40 MG TAB PO SCH (10:46)
[2017-03-25] MEDS: AZITHROMYCIN 500MG/ 250ML 250 ML IV SCH (10:47)
[2017-03-25] MEDS: METOPROLOL TARTRATE 50 MG TAB PO SCH (10:47)
[2017-03-25] MEDS: hydrALAZINE HCL 25 MG TAB PO SCH (10:47)
[2017-03-25] MEDS: HYDROCORTONE 1% TOPICAL CREAM 30 GM TUBE TOP SCH (10:48)
[2017-03-25] MEDS: NIFEdipine ER 30 MG TAB PO SCH (10:48)
[2017-03-25] MEDS: NITROGLYCERIN 50MG/250ML 250 ML IV SCH (10:56)
[2017-03-25 11:34] VITALS: BP 136/73
[2017-03-25 15:15] VITALS: BP 136/73
[2017-03-25 16:46] VITALS: BP 128/79
== END 2017-03-25 16:53 | disposition home or self-care (01) | DRG 291 ==
LOC: ER 06:27 → TELE 06:28 → TELE-WESTW 03-22 20:40
PROVIDERS: ADMIT Internal Medicine; ATTEND Internal Medicine Pulmonary Disease
PROC: 5A1D70Z Performance of Urinary Filtration, Intermittent, Less than 6 Hours Per Day (ICD-10-PCS; principal; 2017-03-20)
PROC: 5A1D70Z Performance of Urinary Filtration, Intermittent, Less than 6 Hours Per Day (ICD-10-PCS; 2017-03-23)
PROC: 5A1D70Z Performance of Urinary Filtration, Intermittent, Less than 6 Hours Per Day (ICD-10-PCS; 2017-03-24)
DX: I13.2 Hypertensive heart and chronic kidney disease with heart failure and with stage 5 chronic kidney disease, or end stage renal disease (principal); I50.33 Acute on chronic diastolic (congestive) heart failure; T86.11 Kidney transplant rejection; I32 Pericarditis in diseases classified elsewhere; E44.1 Mild protein-calorie malnutrition; E87.1 Hypo-osmolality and hyponatremia; E87.5 Hyperkalemia; N18.6 End stage renal disease; I16.0 Hypertensive urgency; Z99.2 Dependence on renal dialysis; J06.9 Acute upper respiratory infection, unspecified; D63.8 Anemia in other chronic diseases classified elsewhere; J40 Bronchitis, not specified as acute or chronic; F41.9 Anxiety disorder, unspecified; R74.8 Abnormal levels of other serum enzymes; G47.00 Insomnia, unspecified; Y83.0 Surgical operation with transplant of whole organ as the cause of abnormal reaction of the patient, or of later complication, without mention of misadventure at the time of the procedure; K21.9 Gastro-esophageal reflux disease without esophagitis; F12.90 Cannabis use, unspecified, uncomplicated; G89.29 Other chronic pain; Z82.49 Family history of ischemic heart disease and other diseases of the circulatory system; Z91.15 Patient's noncompliance with renal dialysis; Z83.3 Family history of diabetes mellitus; Z91.19 Patient's noncompliance with other medical treatment and regimen; Z88.6 Allergy status to analgesic agent; Z79.899 Other long term (current) drug therapy; Z68.26 Body mass index [BMI] 26.0-26.9, adult; Z71.3 Dietary counseling and surveillance
CPT/HCPCS: 36415; 71045; 71046; 76705; 80048; 80053; 80061; 82550; 83735; 83880; 84132; 84443; 84484; 85025; 86141; 87040; 87070; 87081; 87205; 87400; 90935; 93005; 93306; 94640; 96361; 96374; 96375; 99291; J0610; J0885; J1642; J1815; J2405; Q4081

== ENCOUNTER 2017-03-30 05:44 | Inpatient (IN) | payer MEDICARE, MEDICAID ==
[~2017-03-30] VITALS: Ht 165.1 cm; Wt 68.2 kg
[~2017-03-30 05:44] MED LIST changes: -LOSA100T27 PO; -NIFE60TA59 PO; +NIFE90TA30 PO; +ONDA-101 PO; -PROM25TA5 PO
[2017-03-30 06:45] LABS: Basophils # (auto) 0.1 uL; Eosinophils # (auto) 0.1 uL; Eosinophils % (auto) 1.1 % (0.0-7.0); Hematocrit 33.4 % (41.0-53.0); Hemoglobin 10.9 g/dL (13.5-17.5); Lymphocytes # (auto) 0.4 uL; Lymphocytes % (auto) 6.7 % (10.0-50.0); Mean Corpuscular Hemoglobin 28.2 pg (28.0-32.0); Mean Corpuscular Hgb Conc. 32.6 g/dL (32.0-36.0); Mean Corpuscular Volume 86.3 fL (80.0-100.0); Monocytes # (auto) 0.6 uL; Monocytes % (auto) 9.6 % (0.0-12.0); Neutrophils # (auto) 5.5 uL; Neutrophils % (auto) 81.6 % (37.0-80.0); Nucleated Red Blood Cells % 0.1 %; Platelet Count (auto) 337 10^3/uL (140-450); Red Blood Cells 3.87 10^6/uL (4.5-5.90); Red Cell Distribution Width 17.2 % (11.8-14.3); White Blood Cell 6.7 10^3/uL (4.4-10.8)
[2017-03-30 06:58] LABS: INR 1.15 (0.9-1.15); Partial Thromboplastin Time 29.6 sec (22.64-33.71); Prothrombin Time 12.5 sec (9.37-12.3)
[2017-03-30 07:03] LABS: Albumin 2.9 g/dL (3.4-5.0); BUN/Creatinine Ratio 8.5; Calcium 9.7 mg/dL (8.5-10.1); Potassium 4.4 mmol/L (3.5-5.1)
[2017-03-30 07:09] LABS: Bilirubin, Total 0.6 mg/dL (0.2-1.0); Total Protein 6.7 g/dL (6.4-8.2)
[2017-03-30] MEDS ORDERED: ONDANSETRON HCL 4 MG/2 ML VIAL IV ONE (08:00)
[2017-03-30] MEDS ORDERED: NALBUPHINE HCL 10 MG/1ml INJECTION IV ONE (08:15)
[2017-03-30] MEDS ORDERED: LABETALOL HCL 5 MG/ML ML 20ML VIAL IV ONE (08:15)
[2017-03-30] MEDS ORDERED: cloNIDine HCL 0.1 MG TAB PO ONE (08:15)
[2017-03-30] MEDS ORDERED: METOCLOPRAMIDE HCL 5MG/ml INJ 2ml VIAL IV PRN (11:30)
[2017-03-30] MEDS ORDERED: traMADol HCL 50 MG TAB PO PRN (11:30)
[2017-03-30] MEDS ORDERED: PANTOPRAZOLE 40 MG/10 ML VIAL IV ONE (11:30)
[2017-03-30] MEDS ORDERED: ONDANSETRON HCL 4 MG/2 ML VIAL IV PRN (11:30)
[2017-03-30] MEDS ORDERED: fentaNYL CITRATE 100 MCG/2 ML VL IV PRN (12:00)
[2017-03-30] MEDS: CALCIUM ACETATE 667 MG CAP PO SCH ×2 (12:10→18:00)
[2017-03-30] MEDS: diphenhdrAMINE HCL 50 MG/1 ML VL IV PRN ×2 (12:14→19:55)
[2017-03-30 13:00] VITALS: BP 144/94
[2017-03-30] MEDS ORDERED: PATIENTS OWN MEDICATION (Clonidine Hydrochloride (Clonidine Hcl) 1 TAB) PO SCH (14:00)
[2017-03-30] MEDS ORDERED: SODIUM CHL 0.9% 1000 ML BAG XX ONE (14:00)
[2017-03-30] MEDS: cloNIDine HCL 0.1 MG TAB PO SCH ×2 (14:39→22:47)
[2017-03-30] MEDS ORDERED: cefTRIAXone 1GM/10ml IVPUSH 10 ML IV ONE (15:00)
[2017-03-30] MEDS ORDERED: EPOETIN ALFA 10,000 UNIT/1 ML VIAL IV ONE (15:00)
[2017-03-30 17:00] VITALS: BP 142/100
[2017-03-30] MEDS: MORPHINE SULFATE 4 MG/ML SYR/VIAL IV PRN (19:47)
[2017-03-30] MEDS: HYDROCORTONE 1% TOPICAL CREAM 30 GM TUBE TOP SCH (19:56)
[2017-03-30] MEDS ORDERED: PATIENTS OWN MEDICATION (Metoprolol Tartrate 100 MG) PO SCH (22:00)
[2017-03-30 22:08] VITALS: BP 161/106
[2017-03-30] MEDS: METOPROLOL TARTRATE 50 MG TAB PO SCH (22:46)
[2017-03-30] MEDS: metroNIDAZOLE 500MG/100ML 100 ML IV SCH (22:47)
[2017-03-30] MEDS: MINOXIDIL 10 MG TAB PO SCH (22:47)
[2017-03-31] MEDS: MORPHINE SULFATE 4 MG/ML SYR/VIAL IV PRN ×3 (00:21→20:52)
[2017-03-31] MEDS: diphenhdrAMINE HCL 50 MG/1 ML VL IV PRN ×4 (00:21→18:35)
[2017-03-31 04:48] VITALS: BP 138/72
[2017-03-31] MEDS: metroNIDAZOLE 500MG/100ML 100 ML IV SCH (04:57)
[2017-03-31] MEDS: cloNIDine HCL 0.1 MG TAB PO SCH ×3 (05:05→23:16)
[2017-03-31 06:09] LABS: Albumin 2.5 g/dL (3.4-5.0); BUN/Creatinine Ratio 7.7; Calcium 9.5 mg/dL (8.5-10.1); Potassium 5.1 mmol/L (3.5-5.1)
[2017-03-31 06:13] LABS: Basophils # (auto) 0.1 uL; Basophils % (auto) 1.2 % (0.0-2.0); Eosinophils # (auto) 0.2 uL; Eosinophils % (auto) 3.3 % (0.0-7.0); Hematocrit 30.9 % (41.0-53.0); Hemoglobin 10.1 g/dL (13.5-17.5); Lymphocytes # (auto) 0.4 uL; Mean Corpuscular Hemoglobin 28.2 pg (28.0-32.0); Mean Corpuscular Hgb Conc. 32.8 g/dL (32.0-36.0); Mean Corpuscular Volume 86.1 fL (80.0-100.0); Monocytes # (auto) 0.7 uL; Monocytes % (auto) 12.3 % (0.0-12.0); Neutrophils # (auto) 4.2 uL; Neutrophils % (auto) 75.2 % (37.0-80.0); Nucleated Red Blood Cells % 0.1 %; Platelet Count (auto) 376 10^3/uL (140-450); Red Blood Cells 3.59 10^6/uL (4.5-5.90); White Blood Cell 5.6 10^3/uL (4.4-10.8)
[2017-03-31 06:37] LABS: Bilirubin, Total 0.6 mg/dL (0.2-1.0); Total Protein 5.9 g/dL (6.4-8.2)
[2017-03-31 08:00] VITALS: BP 131/82
[2017-03-31] MEDS: CALCIUM ACETATE 667 MG CAP PO SCH ×3 (08:00→18:35)
[2017-03-31] MEDS ORDERED: PANTOPRAZOLE 40 MG/10 ML VIAL IV SCH (10:00)
[2017-03-31] MEDS ORDERED: PATIENTS OWN MEDICATION (Nifedipine (Nifedipine Er) 90 MG) PO SCH (10:00)
[2017-03-31 12:00] VITALS: BP 145/78
[2017-03-31] MEDS: MINOXIDIL 10 MG TAB PO SCH ×2 (12:19→23:14)
[2017-03-31] MEDS: NIFEdipine ER 30 MG TAB PO SCH (12:20)
[2017-03-31] MEDS: METOPROLOL TARTRATE 50 MG TAB PO SCH ×2 (12:20→23:15)
[2017-03-31] MEDS: cefTRIAXone 1GM/10ml IVPUSH 10 ML IV SCH (12:30)
[2017-03-31] MEDS: HYDROCORTONE 1% TOPICAL CREAM 30 GM TUBE TOP SCH ×2 (12:30→23:17)
[2017-03-31] MEDS: metroNIDAZOLE 250MG/50 ML 50 ML IV SCH ×2 (14:00→23:14)
[2017-03-31] MEDS ORDERED: GASTROGRAFIN 120 ML SOL ONE (15:38)
[2017-03-31 17:00] VITALS: BP 135/73
[2017-03-31 23:02] VITALS: BP 136/81
[2017-03-31] MEDS: PANTOPRAZOLE 40 MG TAB PO SCH (23:16)
[2017-04-01] MEDS: MORPHINE SULFATE 4 MG/ML SYR/VIAL IV PRN ×2 (01:14→05:56)
[2017-04-01] MEDS: diphenhdrAMINE HCL 50 MG/1 ML VL IV PRN ×2 (03:20→08:19)
[2017-04-01 05:08] VITALS: BP 124/64
[2017-04-01] MEDS ORDERED: metroNIDAZOLE 500MG/100ML 100 ML IV ONE (05:37)
[2017-04-01] MEDS: metroNIDAZOLE 250MG/50 ML 50 ML IV SCH (05:41)
[2017-04-01] MEDS: cloNIDine HCL 0.1 MG TAB PO SCH (05:41)
[2017-04-01] MEDS: CALCIUM ACETATE 667 MG CAP PO SCH ×2 (08:19→12:00)
[2017-04-01] MEDS: cefTRIAXone 1GM/10ml IVPUSH 10 ML IV SCH (08:19)
[2017-04-01 08:32] VITALS: BP 113/68
[2017-04-01] MEDS: NIFEdipine ER 30 MG TAB PO SCH (10:00)
[2017-04-01] MEDS: MINOXIDIL 10 MG TAB PO SCH (10:00)
[2017-04-01] MEDS: METOPROLOL TARTRATE 50 MG TAB PO SCH (10:00)
[2017-04-01] MEDS: PANTOPRAZOLE 40 MG TAB PO SCH (10:00)
[2017-04-01] MEDS: HYDROCORTONE 1% TOPICAL CREAM 30 GM TUBE TOP SCH (11:31)
== END 2017-04-01 13:17 | disposition home or self-care (01) | DRG 444 ==
LOC: ER 05:51 → CENTRAL 05:52
PROVIDERS: ADMIT Internal Medicine; ATTEND Internal Medicine Pulmonary Disease
PROC: 5A1D70Z Performance of Urinary Filtration, Intermittent, Less than 6 Hours Per Day (ICD-10-PCS; principal; 2017-03-30)
DX: K82.8 Other specified diseases of gallbladder (principal); N18.6 End stage renal disease; I13.2 Hypertensive heart and chronic kidney disease with heart failure and with stage 5 chronic kidney disease, or end stage renal disease; E44.0 Moderate protein-calorie malnutrition; T86.12 Kidney transplant failure; I50.43 Acute on chronic combined systolic (congestive) and diastolic (congestive) heart failure; E87.1 Hypo-osmolality and hyponatremia; I50.30 Unspecified diastolic (congestive) heart failure; Z94.0 Kidney transplant status; K29.00 Acute gastritis without bleeding; K27.9 Peptic ulcer, site unspecified, unspecified as acute or chronic, without hemorrhage or perforation; E87.5 Hyperkalemia; F12.10 Cannabis abuse, uncomplicated; D63.8 Anemia in other chronic diseases classified elsewhere; J45.909 Unspecified asthma, uncomplicated; K21.9 Gastro-esophageal reflux disease without esophagitis; K52.9 Noninfective gastroenteritis and colitis, unspecified; F41.9 Anxiety disorder, unspecified; I50.9 Heart failure, unspecified; Z99.2 Dependence on renal dialysis; Z82.49 Family history of ischemic heart disease and other diseases of the circulatory system; Z83.3 Family history of diabetes mellitus; Z91.15 Patient's noncompliance with renal dialysis; Z79.899 Other long term (current) drug therapy; Z88.6 Allergy status to analgesic agent; Z68.25 Body mass index [BMI] 25.0-25.9, adult
CPT/HCPCS: 36415; 71045; 78226; 80053; 83880; 84484; 85025; 85610; 85730; 87081; 90935; 93005; 96374; 96375; C9113; J0885; J1642; J2405; J3490

== ENCOUNTER 2017-04-16 20:17 | Emergency (ER) | payer MEDICARE, MEDICAID ==
[~2017-04-16] VITALS: Ht 165.1 cm; Wt 68.0 kg
[2017-04-16] MEDS ORDERED: HYDROcodone-ACET 10/325MG TAB PO ONE (22:15)
[2017-04-16 22:47] LABS: Hematocrit 29.6 % (41.0-53.0); Hemoglobin 9.7 g/dL (13.5-17.5); Mean Corpuscular Hemoglobin 28.7 pg (28.0-32.0); Mean Corpuscular Hgb Conc. 32.9 g/dL (32.0-36.0); Mean Corpuscular Volume 87.4 fL (80.0-100.0); Platelet Count (auto) 284 10^3/uL (140-450); Red Blood Cells 3.39 10^6/uL (4.5-5.90); White Blood Cell 5.9 10^3/uL (4.4-10.8)
[2017-04-16 22:56] LABS: Band Neutrophils % (manual) 0; Basophils % (manual) 0 (0.0-2.0); Blast Cells 0; Promyelocytes % 0; Reactive Lymphocytes 0
[2017-04-16] MEDS ORDERED: ONDANSETRON HCL 4 MG/2 ML VIAL IV ONE (23:00)
[2017-04-16] MEDS ORDERED: MORPHINE SULFATE 4 MG/ML SYR/VIAL IV ONE (23:00)
[2017-04-16] MEDS ORDERED: diphenhdrAMINE HCL 25 MG CAP PO ONE (23:00)
[2017-04-16 23:01] LABS: Albumin 2.6 g/dL (3.4-5.0); BUN/Creatinine Ratio 4.8; Bilirubin, Total 0.4 mg/dL (0.2-1.0); Calcium 8.6 mg/dL (8.5-10.1); Potassium 3.8 mmol/L (3.5-5.1); Total Protein 6.5 g/dL (6.4-8.2)
[2017-04-16 23:08] VITALS: BP 157/80
[2017-04-16 23:11] LABS: Eosinophils % (manual) 6 (0-7); Lymphocytes % (manual) 18 (10.0-50.0); Metamyelocytes % 2; Monocytes % (manual) 11 (0-12); Myelocytes % 1
== END 2017-04-17 00:26 | disposition home or self-care (01) ==
LOC: ER 20:17
DX: T81.82XA Emphysema (subcutaneous) resulting from a procedure, initial encounter (principal); R07.89 Other chest pain; K21.9 Gastro-esophageal reflux disease without esophagitis; J45.909 Unspecified asthma, uncomplicated; N18.6 End stage renal disease; I12.0 Hypertensive chronic kidney disease with stage 5 chronic kidney disease or end stage renal disease; Z99.2 Dependence on renal dialysis
CPT/HCPCS: 36415; 71046; 80053; 85007; 85027; 96374; 96375; 99285; J2270; J2405

== ENCOUNTER 2017-06-29 00:49 | Inpatient (IN) | payer MEDICARE ==
[~2017-06-29] VITALS: Ht 165.1 cm; Wt 67.0 kg
[~2017-06-29 00:49] MED LIST changes: -ONDA-101 PO; +PROM25TA5 PO
[2017-06-29] MEDS ORDERED: VALSARTAN 80 MG TAB PO ONE (01:15)
[2017-06-29] MEDS ORDERED: cloNIDine HCL 0.1 MG TAB PO ONE (01:15)
[2017-06-29] MEDS ORDERED: ONDANSETRON HCL 4 MG/2 ML VIAL IV ONE (01:30)
[2017-06-29 01:41] LABS: Basophils # (auto) 0.1 uL; Basophils % (auto) 1.2 % (0.0-2.0); Eosinophils # (auto) 0.7 uL; Eosinophils % (auto) 9.7 % (0.0-7.0); Hemoglobin 9.4 g/dL (13.5-17.5); Lymphocytes # (auto) 0.4 uL; Lymphocytes % (auto) 5.6 % (10.0-50.0); Mean Corpuscular Hemoglobin 30.6 pg (28.0-32.0); Mean Corpuscular Hgb Conc. 34.9 g/dL (32.0-36.0); Mean Corpuscular Volume 87.6 fL (80.0-100.0); Monocytes # (auto) 0.6 uL; Monocytes % (auto) 8.5 % (0.0-12.0); Neutrophils # (auto) 5.5 uL; Nucleated Red Blood Cells % 0.1 %; Platelet Count (auto) 199 10^3/uL (140-450); Red Blood Cells 3.08 10^6/uL (4.5-5.90); Red Cell Distribution Width 16.6 % (11.8-14.3); White Blood Cell 7.4 10^3/uL (4.4-10.8)
[2017-06-29] MEDS ORDERED: METOCLOPRAMIDE HCL 5MG/ml INJ 2ml VIAL IV ONE (01:45)
[2017-06-29 02:07] LABS: Anion Gap 15 (5-15); Calcium 9.3 mg/dL (8.5-10.1); Carbon Dioxide 24 mmol/L (21-32); Chloride 96 mmol/L (98-107); Glucose 92 mg/dL (74-106); Magnesium 1.9 mg/dL (1.6-2.6); Sodium 135 mmol/L (136-145)
[2017-06-29 02:18] LABS: Alanine Aminotransferase 91 U/L (16-61); Alkaline Phosphatase 567 U/L (45-117); Aspartate Aminotransferase 78 U/L (15-37); BUN/Creatinine Ratio 7.6; Bilirubin, Total 0.6 mg/dL (0.2-1.0); GFR African American 6 mL/min; GFR Non-African American 5 mL/min; Total Protein 6.8 g/dL (6.4-8.2)
[2017-06-29 02:21] LABS: Blood Urea Nitrogen 107 mg/dL (7-18); Potassium 6.5 mmol/L (3.5-5.1)
[2017-06-29] MEDS ORDERED: DEXTROSE (50%) 50ML SYRG IV ONE ×4 (02:30→07:38)
[2017-06-29] MEDS ORDERED: SODIUM BICARBONATE 8.4 % INJ 50ML VIAL IV ONE ×2 (02:30→06:15)
[2017-06-29] MEDS ORDERED: InsuLIN REG 1unit/0.01ml Soln (100units/ml) IV ONE ×2 (02:30→06:15)
[2017-06-29] MEDS ORDERED: CALCIUM GLUC 4.65meq/50ml D5AE 50 ML IV ONE ×2 (02:30→06:15)
[2017-06-29] MEDS ORDERED: SODIUM POLYSTYRENE SULF 15GM/60ML SUSP PO ONE (02:30)
[2017-06-29] MEDS ORDERED: MORPHINE SULFATE 4 MG/ML SYR/VIAL IV ONE ×2 (03:00→07:30)
[2017-06-29] MEDS ORDERED: DEXTROSE 50% SYRINGE 50 ML IV ONE (03:32)
[2017-06-29] MEDS ORDERED: diphenhdrAMINE HCL 50 MG/1 ML VL IV ONE ×2 (05:30→09:00)
[2017-06-29] MEDS ORDERED: FUROSEMIDE 20 MG/2 ML VIAL IV ONE (06:15)
[2017-06-29] MEDS ORDERED: ALBUTEROL SULF 2.5 MG/0.5ML(0.5%) NEB SOLN NEB ONE (06:15)
[2017-06-29] MEDS ORDERED: ONDANSETRON HCL 4 MG/2 ML VIAL IV PRN (07:30)
[2017-06-29] MEDS ORDERED: hydrALAZINE HCL 20 MG/ML VL IV PRN (07:30)
[2017-06-29] MEDS ORDERED: NITROGLYCERIN 0.4 MG SL TAB SL PRN (07:30)
[2017-06-29] MEDS ORDERED: PROMETHAZINE HCL 25 MG/ML 1ML IV ONE (07:30)
[2017-06-29] MEDS ORDERED: LOSARTAN POTASSIUM 50 MG TAB PO SCH (10:00)
[2017-06-29] MEDS: cloNIDine HCL 0.1 MG TAB PO SCH ×3 (10:57→22:09)
[2017-06-29] MEDS ORDERED: ALBUTEROL SULF 2.5 MG/0.5ML(0.5%) NEB SOLN NEB PRN (13:30)
[2017-06-29] MEDS ORDERED: DEXTROSE (50%) 50ML SYRG IV PRN (13:45)
[2017-06-29] MEDS ORDERED: AZITHROMYCIN 500MG/ 250ML 250 ML IV ONE (14:00)
[2017-06-29] MEDS: ACCU-CHEK COMFORT CURVE STRIP VI SCH ×3 (15:00→22:09)
[2017-06-29] MEDS ORDERED: EPOETIN ALFA 2,000 UNIT/1 ML VIAL IV ONE (15:00)
[2017-06-29] MEDS ORDERED: EPOETIN ALFA 3,000 UNIT/1 ML VIAL IV ONE (15:00)
[2017-06-29] MEDS: PIPERACILLIN-TAZOB 3.375GM 100 ML IV SCH ×2 (16:00→22:08)
[2017-06-29 16:32] VITALS: BP 174/111
[2017-06-29] MEDS: NIFEdipine ER 30 MG TAB PO SCH (17:20)
[2017-06-29] MEDS: PANTOPRAZOLE 40 MG/10 ML VIAL IV SCH (17:20)
[2017-06-29] MEDS: METOPROLOL SUCCINATE XL 50 MG TAB PO SCH (17:20)
[2017-06-29] MEDS: diphenhdrAMINE HCL 50 MG/1 ML VL IV PRN ×2 (17:20→23:28)
[2017-06-29 17:57] VITALS: BP 163/93
[2017-06-29] MEDS: MORPHINE SULFATE 4 MG/ML SYR/VIAL IV PRN (18:11)
[2017-06-29 21:10] VITALS: BP 140/90
[2017-06-29] MEDS ORDERED: diphenhdrAMINE HCL 25 MG CAP PO ONE (23:00)
[2017-06-30] MEDS: ACCU-CHEK COMFORT CURVE STRIP VI SCH ×5 (01:57→18:00)
[2017-06-30] MEDS: MORPHINE SULFATE 4 MG/ML SYR/VIAL IV PRN ×2 (02:13→10:04)
[2017-06-30] MEDS: PIPERACILLIN-TAZOB 3.375GM 100 ML IV SCH ×3 (04:00→16:00)
[2017-06-30 05:12] VITALS: BP 150/89
[2017-06-30 05:39] LABS: Hematocrit 25.7 % (41.0-53.0); Hemoglobin 8.7 g/dL (13.5-17.5); Mean Corpuscular Hemoglobin 29.7 pg (28.0-32.0); Mean Corpuscular Hgb Conc. 33.8 g/dL (32.0-36.0); Mean Corpuscular Volume 87.9 fL (80.0-100.0); Platelet Count (auto) 182 10^3/uL (140-450); Red Blood Cells 2.93 10^6/uL (4.5-5.90); Red Cell Distribution Width 16.1 % (11.8-14.3); White Blood Cell 5.3 10^3/uL (4.4-10.8)
[2017-06-30 05:41] LABS: Basophils % (manual) 0 (0.0-2.0); Blast Cells 0; Metamyelocytes % 0; Myelocytes % 0; Promyelocytes % 0; Reactive Lymphocytes 0
[2017-06-30 05:57] LABS: Potassium 5.2 mmol/L (3.5-5.1)
[2017-06-30 06:01] LABS: Albumin 2.7 g/dL (3.4-5.0); BUN/Creatinine Ratio 6.7; Calcium 9.4 mg/dL (8.5-10.1)
[2017-06-30] MEDS: cloNIDine HCL 0.1 MG TAB PO SCH ×2 (06:02→15:01)
[2017-06-30 06:10] LABS: Bilirubin, Total 0.7 mg/dL (0.2-1.0); Total Protein 6.1 g/dL (6.4-8.2)
[2017-06-30 06:36] LABS: Band Neutrophils % (manual) 1; Eosinophils % (manual) 23 (0-7); Lymphocytes % (manual) 8 (10.0-50.0); Monocytes % (manual) 4 (0-12)
[2017-06-30 08:00] VITALS: BP 141/81
[2017-06-30 09:00] VITALS: BP 141/81
[2017-06-30] MEDS: PANTOPRAZOLE 40 MG/10 ML VIAL IV SCH (10:18)
[2017-06-30] MEDS: NIFEdipine ER 30 MG TAB PO SCH (10:19)
[2017-06-30] MEDS: METOPROLOL SUCCINATE XL 50 MG TAB PO SCH (10:19)
[2017-06-30] MEDS: diphenhdrAMINE HCL 50 MG/1 ML VL IV PRN ×2 (10:59→17:10)
[2017-06-30 13:00] VITALS: BP 148/92
[2017-06-30] MEDS ORDERED: AZITHROMYCIN 500MG/ 250ML 250 ML IV SCH (13:00)
[2017-06-30 15:51] VITALS: BP 148/92
[2017-06-30] MEDS ORDERED: MORPHINE SULFATE 4 MG/ML SYR/VIAL IV ONE (16:15)
[2017-06-30 16:59] VITALS: BP 144/89
== END 2017-06-30 19:00 | disposition home or self-care (01) | DRG 193 ==
LOC: ER 00:53 → TELE 00:54 → TELE-WESTW 21:10
PROVIDERS: ADMIT Nurse Practitioner Family; ATTEND Family Medicine
PROC: 5A1D70Z Performance of Urinary Filtration, Intermittent, Less than 6 Hours Per Day (ICD-10-PCS; principal; 2017-06-29)
DX: J13 Pneumonia due to Streptococcus pneumoniae (principal); N18.6 End stage renal disease; I13.2 Hypertensive heart and chronic kidney disease with heart failure and with stage 5 chronic kidney disease, or end stage renal disease; E87.5 Hyperkalemia; I50.9 Heart failure, unspecified; D63.8 Anemia in other chronic diseases classified elsewhere; J45.909 Unspecified asthma, uncomplicated; K21.9 Gastro-esophageal reflux disease without esophagitis; F41.9 Anxiety disorder, unspecified; M79.1 Myalgia; R06.03 Acute respiratory distress; E16.2 Hypoglycemia, unspecified; Z82.49 Family history of ischemic heart disease and other diseases of the circulatory system; Z83.3 Family history of diabetes mellitus; Z79.899 Other long term (current) drug therapy
CPT/HCPCS: 36415; 71045; 71250; 80053; 82962; 83735; 83880; 84132; 84484; 85007; 85025; 85027; 87040; 87081; 90935; 93005; 94640; 96365; 96375; 96376; C9113; J0610; J1815; J2543; Q4081

== ENCOUNTER 2017-07-07 05:11 | Inpatient (IN) | payer MEDICARE ==
[~2017-07-07] VITALS: Ht 165.1 cm; Wt 64.8 kg
[2017-07-07] MEDS ORDERED: FUROSEMIDE 20 MG/2 ML VIAL IV ONE (07:15)
[2017-07-07] MEDS ORDERED: cloNIDine HCL 0.1 MG TAB PO ONE (07:15)
[2017-07-07] MEDS ORDERED: MORPHINE SULFATE 4 MG/ML SYR/VIAL IV PRN ×2 (07:15→11:15)
[2017-07-07] MEDS ORDERED: METOPROLOL TARTRATE 1MG/1ML-5ML VIAL IV ONE (07:15)
[2017-07-07] MEDS ORDERED: ONDANSETRON HCL 4 MG/2 ML VIAL IV ONE (07:15)
[2017-07-07] MEDS ORDERED: SODIUM CHLORIDE 0.9% 1,000 ML IV ONE (07:15)
[2017-07-07 07:41] LABS: Basophils # (auto) 0 uL; Basophils % (auto) 0.8 % (0.0-2.0); Eosinophils # (auto) 0.5 uL; Eosinophils % (auto) 9.7 % (0.0-7.0); Hematocrit 27.3 % (41.0-53.0); Hemoglobin 9.3 g/dL (13.5-17.5); Lymphocytes # (auto) 0.3 uL; Lymphocytes % (auto) 6.6 % (10.0-50.0); Mean Corpuscular Hemoglobin 29.4 pg (28.0-32.0); Mean Corpuscular Hgb Conc. 33.9 g/dL (32.0-36.0); Mean Corpuscular Volume 86.7 fL (80.0-100.0); Monocytes # (auto) 0.5 uL; Monocytes % (auto) 10.2 % (0.0-12.0); Neutrophils # (auto) 3.7 uL; Neutrophils % (auto) 72.7 % (37.0-80.0); Platelet Count (auto) 196 10^3/uL (140-450); Red Blood Cells 3.15 10^6/uL (4.5-5.90); Red Cell Distribution Width 15.3 % (11.8-14.3); White Blood Cell 5.1 10^3/uL (4.4-10.8)
[2017-07-07 07:45] LABS: INR 1.06 (0.9-1.15); Partial Thromboplastin Time 25.8 sec (22.64-33.71); Prothrombin Time 11.6 sec (9.37-12.3)
[2017-07-07 07:53] LABS: Albumin 2.9 g/dL (3.4-5.0); BUN/Creatinine Ratio 6.3; Bilirubin, Total 0.4 mg/dL (0.2-1.0); Calcium 9.2 mg/dL (8.5-10.1); Total Protein 6.5 g/dL (6.4-8.2)
[2017-07-07] MEDS ORDERED: diphenhdrAMINE HCL 50 MG/1 ML VL IV ONE ×2 (09:45→11:30)
[2017-07-07] MEDS ORDERED: MORPHINE SULFATE 4 MG/ML SYR/VIAL ONE (09:50)
[2017-07-07] MEDS ORDERED: HEPARIN SODIUM (PORCINE) 5000 UNITS/ML 1ML VIAL IV ONE (10:00)
[2017-07-07] MEDS ORDERED: EPOETIN ALFA 2,000 UNIT/1 ML VIAL IV ONE (10:00)
[2017-07-07] MEDS ORDERED: EPOETIN ALFA 3,000 UNIT/1 ML VIAL IV ONE (10:00)
[2017-07-07] MEDS ORDERED: PATIENTS OWN MEDICATION (Metoprolol Tartrate 100 MG) PO SCH (11:15)
[2017-07-07] MEDS ORDERED: NITROGLYCERIN 50MG/250ML 250 ML IV SCH (11:15)
[2017-07-07] MEDS ORDERED: NITROGLYCERIN 0.4 MG SL TAB SL PRN (11:15)
[2017-07-07] MEDS ORDERED: LORazepam 0.5 MG TAB PO PRN (11:15)
[2017-07-07] MEDS ORDERED: PATIENTS OWN MEDICATION (Nifedipine (Nifedipine Er) 90 MG) PO SCH (11:15)
[2017-07-07] MEDS ORDERED: TEMAZEPAM 15 MG CAP PO PRN (11:15)
[2017-07-07] MEDS: ASPirin 81 mg TAB PO SCH (13:10)
[2017-07-07] MEDS: CARVEDILOL 3.125 MG TAB PO SCH ×2 (13:11→21:31)
[2017-07-07] MEDS: PROMETHAZINE HCL 25 MG/ML 1ML IV PRN (13:12)
[2017-07-07] MEDS: CALCIUM ACETATE 667 MG CAP PO SCH ×2 (13:15→18:15)
[2017-07-07] MEDS: METOPROLOL TARTRATE 50 MG TAB PO SCH ×2 (13:16→21:29)
[2017-07-07] MEDS: MINOXIDIL 10 MG TAB PO SCH ×2 (13:16→21:32)
[2017-07-07] MEDS: MORPHINE SULFATE 4 MG/ML SYR/VIAL IV PRN ×3 (13:20→23:59)
[2017-07-07] MEDS ORDERED: PATIENTS OWN MEDICATION (Clonidine Hydrochloride (Clonidine Hcl) 1 TAB) PO SCH (14:00)
[2017-07-07] MEDS: diphenhdrAMINE HCL 50 MG/1 ML VL IV PRN ×3 (14:28→23:56)
[2017-07-07] MEDS: SODIUM CHLOR 0.9% PF (SALINE LOCK) 10ML VIAL/SYR IV SCH ×2 (14:28→21:29)
[2017-07-07] MEDS: cloNIDine HCL 0.1 MG TAB PO SCH ×2 (14:28→21:30)
[2017-07-07] MEDS ORDERED: hydrOXYzine 25 MG TAB or CAP PO ONE (19:00)
[2017-07-07] MEDS: HEPARIN SODIUM (PORCINE) 5000 UNITS/ML 1ML VIAL SC SCH (21:33)
[2017-07-07] MEDS ORDERED: FAMOTIDINE 20 MG TAB PO SCH (22:00)
[2017-07-08] MEDS ORDERED: NICARDIPINE 25MG/250ML BAG KIT 250 ML IV ONE (00:55)
[2017-07-08] MEDS: NICARDIPINE 25MG/250ML BAG KIT 250 ML IV SCH ×5 (01:17→21:00)
[2017-07-08 05:37] LABS: Hemoglobin 9.7 g/dL (13.5-17.5); Mean Corpuscular Hemoglobin 29.3 pg (28.0-32.0); Mean Corpuscular Hgb Conc. 33.6 g/dL (32.0-36.0); Mean Corpuscular Volume 87.2 fL (80.0-100.0); Platelet Count (auto) 227 10^3/uL (140-450); Red Blood Cells 3.33 10^6/uL (4.5-5.90); Red Cell Distribution Width 15.3 % (11.8-14.3); White Blood Cell 5.8 10^3/uL (4.4-10.8)
[2017-07-08] MEDS: MORPHINE SULFATE 4 MG/ML SYR/VIAL IV PRN ×4 (05:40→20:50)
[2017-07-08] MEDS: SODIUM CHLOR 0.9% PF (SALINE LOCK) 10ML VIAL/SYR IV SCH ×3 (05:40→21:42)
[2017-07-08] MEDS: diphenhdrAMINE HCL 50 MG/1 ML VL IV PRN ×4 (05:40→22:35)
[2017-07-08 05:41] LABS: Band Neutrophils % (manual) 0; Basophils % (manual) 0 (0.0-2.0); Blast Cells 0; Metamyelocytes % 0; Myelocytes % 0; Promyelocytes % 0; Reactive Lymphocytes 0
[2017-07-08] MEDS: cloNIDine HCL 0.1 MG TAB PO SCH ×3 (05:43→21:42)
[2017-07-08 06:38] LABS: Albumin 3.2 g/dL (3.4-5.0); BUN/Creatinine Ratio 5.6; Bilirubin, Total 0.6 mg/dL (0.2-1.0); Calcium 9.8 mg/dL (8.5-10.1); Potassium 4.5 mmol/L (3.5-5.1); Total Protein 6.8 g/dL (6.4-8.2)
[2017-07-08 06:45] LABS: Eosinophils % (manual) 10 (0-7); Lymphocytes % (manual) 9 (10.0-50.0); Monocytes % (manual) 5 (0-12)
[2017-07-08] MEDS: CALCIUM ACETATE 667 MG CAP PO SCH ×3 (08:00→18:15)
[2017-07-08] MEDS ORDERED: ENOXAPARIN SOD 30 MG/0.3 ML SYRINGE SC SCH (10:00)
[2017-07-08] MEDS: ENALAPRIL MALEATE 10 MG TAB PO SCH (10:00)
[2017-07-08] MEDS ORDERED: OMEPRAZOLE 20MG/10ML ORAL SUSP PO SCH (10:00)
[2017-07-08] MEDS: MINOXIDIL 10 MG TAB PO SCH ×2 (10:00→21:43)
[2017-07-08] MEDS: PANTOPRAZOLE 40 MG TAB PO SCH (10:00)
[2017-07-08] MEDS: METOPROLOL TARTRATE 50 MG TAB PO SCH ×3 (10:00→21:43)
[2017-07-08] MEDS: NIFEdipine ER 30 MG TAB PO SCH (10:00)
[2017-07-08] MEDS: NITROGLYCERIN 0.2MG/HR TOPICAL PATCH TD SCH (10:35)
[2017-07-08] MEDS: CARVEDILOL 3.125 MG TAB PO SCH ×2 (10:37→21:43)
[2017-07-08] MEDS: ASPirin 81 mg TAB PO SCH (10:37)
[2017-07-08] MEDS: HEPARIN SODIUM (PORCINE) 5000 UNITS/ML 1ML VIAL SC SCH ×2 (10:45→21:44)
[2017-07-08] MEDS: PROMETHAZINE HCL 25 MG/ML 1ML IV PRN ×3 (11:27→20:50)
[2017-07-08] MEDS ORDERED: EPOETIN ALFA 2,000 UNIT/1 ML VIAL SC ONE (12:45)
[2017-07-08] MEDS ORDERED: cefTRIAXone 1GM/10ml IVPUSH 10 ML IV ONE (13:00)
[2017-07-08] MEDS ORDERED: diphenhdrAMINE HCL 50 MG/1 ML VL IV ONE (13:45)
[2017-07-08 17:30] VITALS: BP 140/71
[2017-07-08 20:00] VITALS: BP 147/83
[2017-07-08 22:00] VITALS: BP 147/83
[2017-07-09] MEDS: NICARDIPINE 25MG/250ML BAG KIT 250 ML IV SCH ×3 (02:00→12:00)
[2017-07-09] MEDS: MORPHINE SULFATE 4 MG/ML SYR/VIAL IV PRN ×3 (02:27→11:58)
[2017-07-09] MEDS: PROMETHAZINE HCL 25 MG/ML 1ML IV PRN ×3 (02:28→11:58)
[2017-07-09] MEDS: diphenhdrAMINE HCL 50 MG/1 ML VL IV PRN ×3 (04:10→15:27)
[2017-07-09 05:00] VITALS: BP 148/81
[2017-07-09] MEDS: SODIUM CHLOR 0.9% PF (SALINE LOCK) 10ML VIAL/SYR IV SCH ×2 (05:34→16:50)
[2017-07-09] MEDS: cloNIDine HCL 0.1 MG TAB PO SCH ×2 (05:34→15:20)
[2017-07-09 06:42] LABS: Hematocrit 27.3 % (41.0-53.0); Hemoglobin 9.5 g/dL (13.5-17.5); Mean Corpuscular Hemoglobin 29.8 pg (28.0-32.0); Mean Corpuscular Hgb Conc. 34.6 g/dL (32.0-36.0); Mean Corpuscular Volume 86.2 fL (80.0-100.0); Platelet Count (auto) 199 10^3/uL (140-450); Red Blood Cells 3.17 10^6/uL (4.5-5.90); Red Cell Distribution Width 15.2 % (11.8-14.3); White Blood Cell 6.6 10^3/uL (4.4-10.8)
[2017-07-09 06:51] LABS: Band Neutrophils % (manual) 0; Basophils % (manual) 0 (0.0-2.0); Blast Cells 0; Metamyelocytes % 0; Myelocytes % 0; Promyelocytes % 0; Reactive Lymphocytes 0
[2017-07-09 07:08] LABS: Potassium 4.4 mmol/L (3.5-5.1)
[2017-07-09 07:21] LABS: BUN/Creatinine Ratio 5.2; Calcium 9.5 mg/dL (8.5-10.1)
[2017-07-09 07:24] LABS: Bilirubin, Total 0.7 mg/dL (0.2-1.0); Total Protein 6.6 g/dL (6.4-8.2)
[2017-07-09 08:00] VITALS: BP 151/97
[2017-07-09 08:03] LABS: Lymphocytes % (manual) 8 (10.0-50.0); Monocytes % (manual) 9 (0-12)
[2017-07-09 08:04] LABS: Eosinophils % (manual) 19 (0-7)
[2017-07-09] MEDS: CALCIUM ACETATE 667 MG CAP PO SCH ×3 (08:32→18:00)
[2017-07-09] MEDS ORDERED: cefTRIAXone 1GM/10ml IVPUSH 10 ML IV SCH (09:00)
[2017-07-09] MEDS ORDERED: diphenhdrAMINE HCL 50 MG/1 ML VL ONE (09:29)
[2017-07-09] MEDS: NITROGLYCERIN 0.2MG/HR TOPICAL PATCH TD SCH (10:00)
[2017-07-09] MEDS ORDERED: LIDOCAINE 2% (LOCAL ANESTH.) PF 5ml SDV ONE (10:17)
[2017-07-09] MEDS ORDERED: MIDAZOLAM HCL 1MG/1ML-2 ML VIAL ONE (10:38)
[2017-07-09] MEDS: HEPARIN SODIUM (PORCINE) 5000 UNITS/ML 1ML VIAL SC SCH (11:59)
[2017-07-09 12:00] VITALS: BP 143/71
[2017-07-09] MEDS: NIFEdipine ER 30 MG TAB PO SCH (12:00)
[2017-07-09] MEDS: MINOXIDIL 10 MG TAB PO SCH (12:00)
[2017-07-09] MEDS: PANTOPRAZOLE 40 MG TAB PO SCH (12:01)
[2017-07-09] MEDS: CARVEDILOL 3.125 MG TAB PO SCH (12:01)
[2017-07-09] MEDS: ENALAPRIL MALEATE 10 MG TAB PO SCH (12:01)
[2017-07-09] MEDS: METOPROLOL TARTRATE 50 MG TAB PO SCH (12:02)
[2017-07-09] MEDS: ASPirin 81 mg TAB PO SCH (12:02)
[2017-07-09 14:24] VITALS: BP 143/71
[2017-07-09] MEDS ORDERED: MORPHINE SULFATE 8mg/ml INJ SDV IV PRN ×2 (16:45)
[2017-07-09 17:00] VITALS: BP 134/77
== END 2017-07-09 20:00 | disposition home or self-care (01) | DRG 291 ==
LOC: ER 05:19 → TELE 05:20 → TELE-CENTR 07-08 17:07
PROVIDERS: ADMIT Internal Medicine; ATTEND Family Medicine
PROC: 5A1D70Z Performance of Urinary Filtration, Intermittent, Less than 6 Hours Per Day (ICD-10-PCS; 2017-07-07)
PROC: 5A1D70Z Performance of Urinary Filtration, Intermittent, Less than 6 Hours Per Day (ICD-10-PCS; 2017-07-08)
PROC: 0W993ZZ Drainage of Right Pleural Cavity, Percutaneous Approach (ICD-10-PCS; principal; 2017-07-09)
DX: I13.2 Hypertensive heart and chronic kidney disease with heart failure and with stage 5 chronic kidney disease, or end stage renal disease (principal); J18.1 Lobar pneumonia, unspecified organism; J90 Pleural effusion, not elsewhere classified; N18.6 End stage renal disease; I50.33 Acute on chronic diastolic (congestive) heart failure; D63.8 Anemia in other chronic diseases classified elsewhere; I16.0 Hypertensive urgency; F12.90 Cannabis use, unspecified, uncomplicated; F41.9 Anxiety disorder, unspecified; J45.909 Unspecified asthma, uncomplicated; K21.9 Gastro-esophageal reflux disease without esophagitis; M71.20 Synovial cyst of popliteal space [Baker], unspecified knee; Z82.49 Family history of ischemic heart disease and other diseases of the circulatory system; Z83.3 Family history of diabetes mellitus; Z99.2 Dependence on renal dialysis; Z86.718 Personal history of other venous thrombosis and embolism; Z84.1 Family history of disorders of kidney and ureter; Z88.5 Allergy status to narcotic agent; Z88.8 Allergy status to other drugs, medicaments and biological substances; Z79.899 Other long term (current) drug therapy
CPT/HCPCS: 10022; 36415; 71045; 71046; 76604; 76942; 80053; 80061; 82550; 83735; 83880; 84443; 84484; 85007; 85025; 85027; 85379; 85610; 85652; 85730; 87040; 87081; 87205; 90935; 93005; 93971; 94761; 96361; 96374; 96375; J2250; J2405; Q4081

== ENCOUNTER 2017-07-31 00:05 | Inpatient (IN) | payer MEDICARE, MEDICAID ==
[~2017-07-31] VITALS: Ht 165.1 cm; Wt 65.8 kg
[2017-07-31 03:22] LABS: Basophils # (auto) 0 uL; Basophils % (auto) 0.7 % (0.0-2.0); Eosinophils # (auto) 0.4 uL; Eosinophils % (auto) 6.3 % (0.0-7.0); Hematocrit 28.3 % (41.0-53.0); Hemoglobin 9.7 g/dL (13.5-17.5); Lymphocytes # (auto) 0.5 uL; Lymphocytes % (auto) 6.8 % (10.0-50.0); Mean Corpuscular Hemoglobin 29.5 pg (28.0-32.0); Mean Corpuscular Hgb Conc. 34.3 g/dL (32.0-36.0); Monocytes # (auto) 0.7 uL; Monocytes % (auto) 9.9 % (0.0-12.0); Neutrophils # (auto) 5.3 uL; Neutrophils % (auto) 76.3 % (37.0-80.0); Platelet Count (auto) 186 10^3/uL (140-450); Red Blood Cells 3.29 10^6/uL (4.5-5.90)
[2017-07-31 03:35] LABS: Albumin 3.3 g/dL (3.4-5.0); Calcium 9.3 mg/dL (8.5-10.1); Magnesium 1.9 mg/dL (1.6-2.6); Potassium 5.5 mmol/L (3.5-5.1)
[2017-07-31 03:47] LABS: Bilirubin, Total 0.5 mg/dL (0.2-1.0); Total Protein 7.1 g/dL (6.4-8.2)
[2017-07-31 04:14] LABS: BUN/Creatinine Ratio 7.1
[2017-07-31] MEDS ORDERED: KETOROLAC TROMETH 30 MG/ML 1ML VIAL IV ONE (07:45)
[2017-07-31] MEDS ORDERED: diphenhdrAMINE HCL 25 MG CAP PO ONE (08:15)
[2017-07-31] MEDS ORDERED: NIFEdipine ER 30 MG TAB PO ONE (10:45)
[2017-07-31] MEDS ORDERED: cloNIDine HCL 0.1 MG TAB PO PRN (10:45)
[2017-07-31] MEDS ORDERED: PANTOPRAZOLE 40 MG TAB PO ONE (10:45)
[2017-07-31] MEDS ORDERED: cefTRIAXone 1GM/10ml IVPUSH 10 ML IV ONE (10:45)
[2017-07-31] MEDS ORDERED: METOPROLOL TARTRATE 50 MG TAB PO ONE (10:45)
[2017-07-31] MEDS ORDERED: PROMETHAZINE HCL 25 MG/ML 1ML IV PRN (10:45)
[2017-07-31] MEDS ORDERED: NITROGLYCERIN 0.4 MG SL TAB SL PRN (11:00)
[2017-07-31] MEDS ORDERED: MORPHINE SULF INJ 2 MG/ML SYRINGE 1ML IV PRN (11:00)
[2017-07-31] MEDS ORDERED: DOCUSATE SOD 100 MG CAP PO PRN (11:00)
[2017-07-31] MEDS ORDERED: ONDANSETRON HCL 4 MG/2 ML VIAL IV PRN (11:00)
[2017-07-31] MEDS ORDERED: MINOXIDIL 10 MG TAB PO ONE (11:00)
[2017-07-31] MEDS ORDERED: TEMAZEPAM 15 MG CAP PO PRN (11:00)
[2017-07-31] MEDS: SODIUM POLYSTYRENE SULF 15GM/60ML SUSP PO ONE ×2 (11:08→11:12)
[2017-07-31] MEDS: BOOST PLUS 8 ounce PO SCH ×2 (12:00→18:48)
[2017-07-31 12:40] VITALS: BP 150/94
[2017-07-31] MEDS: CALCIUM ACETATE 667 MG CAP PO SCH ×2 (12:50→18:48)
[2017-07-31] MEDS: cloNIDine HCL 0.1 MG TAB PO SCH ×2 (14:11→21:39)
[2017-07-31] MEDS: SODIUM CHLOR 0.9% PF (SALINE LOCK) 10ML VIAL/SYR IV SCH ×2 (14:12→21:38)
[2017-07-31] MEDS: KETOROLAC TROMETH 30 MG/ML 1ML VIAL IV PRN (14:12)
[2017-07-31] MEDS ORDERED: diphenhdrAMINE HCL 25 MG CAP PO PRN (14:45)
[2017-07-31 16:12] LABS: BUN/Creatinine Ratio 7.5; Calcium 9.2 mg/dL (8.5-10.1)
[2017-07-31 16:30] LABS: Potassium 5.6 mmol/L (3.5-5.1)
[2017-07-31] MEDS ORDERED: diphenhdrAMINE HCL 50 MG/1 ML VL IV PRN (16:30)
[2017-07-31] MEDS ORDERED: InsuLIN REG 1unit/0.01ml Soln (100units/ml) SC ONE (17:15)
[2017-07-31] MEDS ORDERED: SODIUM BICARBONATE 8.4 % INJ 50ML VIAL IV ONE (17:15)
[2017-07-31] MEDS ORDERED: DEXTROSE (50%) 50ML SYRG IV ONE (17:15)
[2017-07-31 17:33] VITALS: BP 144/76
[2017-07-31] MEDS: FAMOTIDINE 20 MG TAB PO SCH (17:44)
[2017-07-31] MEDS: SODIUM POLYSTYRENE SULF 15GM/60ML SUSP PO SCH ×2 (17:45→23:38)
[2017-07-31] MEDS ORDERED: InsuLIN REG 1unit/0.01ml Soln (100units/ml) IV ONE (18:15)
[2017-07-31] MEDS ORDERED: CALCIUM GLUC 4.65meq/50ml D5AE 50 ML IV ONE (18:30)
[2017-07-31] MEDS: diphenhdrAMINE HCL 50 MG/1 ML VL IV PRN (20:44)
[2017-07-31] MEDS: METOPROLOL TARTRATE 50 MG TAB PO SCH (21:39)
[2017-07-31 22:00] VITALS: BP 151/77
[2017-08-01] MEDS: diphenhdrAMINE HCL 50 MG/1 ML VL IV PRN ×4 (02:38→21:27)
[2017-08-01] MEDS: KETOROLAC TROMETH 30 MG/ML 1ML VIAL IV PRN ×2 (03:34→10:37)
[2017-08-01 05:08] VITALS: BP 127/83
[2017-08-01 05:58] LABS: Basophils # (auto) 0 uL; Basophils % (auto) 0.5 % (0.0-2.0); Eosinophils # (auto) 0.1 uL; Eosinophils % (auto) 1.9 % (0.0-7.0); Hematocrit 23.8 % (41.0-53.0); Hemoglobin 8.3 g/dL (13.5-17.5); Lymphocytes # (auto) 0.3 uL; Lymphocytes % (auto) 4.2 % (10.0-50.0); Mean Corpuscular Hemoglobin 29.7 pg (28.0-32.0); Mean Corpuscular Hgb Conc. 34.8 g/dL (32.0-36.0); Mean Corpuscular Volume 85.2 fL (80.0-100.0); Monocytes % (auto) 15.3 % (0.0-12.0); Neutrophils # (auto) 4.9 uL; Neutrophils % (auto) 78.1 % (37.0-80.0); Platelet Count (auto) 124 10^3/uL (140-450); Red Cell Distribution Width 15.2 % (11.8-14.3); White Blood Cell 6.2 10^3/uL (4.4-10.8)
[2017-08-01 06:13] LABS: Albumin 2.9 g/dL (3.4-5.0); BUN/Creatinine Ratio 7.4; Calcium 8.9 mg/dL (8.5-10.1)
[2017-08-01 06:21] LABS: Bilirubin, Total 0.4 mg/dL (0.2-1.0); Total Protein 5.9 g/dL (6.4-8.2)
[2017-08-01 06:26] LABS: Potassium 7.6 mmol/L (3.5-5.1)
[2017-08-01] MEDS: SODIUM CHLOR 0.9% PF (SALINE LOCK) 10ML VIAL/SYR IV SCH ×3 (06:36→21:25)
[2017-08-01] MEDS: cloNIDine HCL 0.1 MG TAB PO SCH ×3 (06:37→21:26)
[2017-08-01] MEDS ORDERED: InsuLIN REG 1unit/0.01ml Soln (100units/ml) IV ONE (07:00)
[2017-08-01] MEDS ORDERED: DEXTROSE (50%) 50ML SYRG IV ONE (07:00)
[2017-08-01] MEDS ORDERED: SODIUM BICARBONATE 8.4% INJ 50ML SYRINGE IV ONE (07:00)
[2017-08-01] MEDS ORDERED: CALCIUM GLUC 4.65meq/50ml D5AE 50 ML IV ONE (07:00)
[2017-08-01] MEDS: BOOST PLUS 8 ounce PO SCH ×3 (08:00→18:43)
[2017-08-01] MEDS ORDERED: SODIUM BICARBONATE 8.4% INJ 50ML SYRINGE ONE (08:09)
[2017-08-01] MEDS: CALCIUM ACETATE 667 MG CAP PO SCH ×3 (08:34→18:42)
[2017-08-01] MEDS: cefTRIAXone 1GM/10ml IVPUSH 10 ML IV SCH (09:11)
[2017-08-01 09:58] VITALS: BP 121/64
[2017-08-01] MEDS: METOPROLOL TARTRATE 50 MG TAB PO SCH ×2 (10:00→21:26)
[2017-08-01] MEDS: NIFEdipine ER 30 MG TAB PO SCH (10:00)
[2017-08-01] MEDS: FAMOTIDINE 20 MG TAB PO SCH (10:03)
[2017-08-01] MEDS: MULTIPLE VITAMIN TAB PO SCH (10:03)
[2017-08-01] MEDS: PANTOPRAZOLE 40 MG TAB PO SCH (10:03)
[2017-08-01] MEDS: MINOXIDIL 10 MG TAB PO SCH (10:04)
[2017-08-01 13:00] VITALS: BP 125/66
[2017-08-01] MEDS ORDERED: EPOETIN ALFA 10,000 UNIT/1 ML VIAL IV ONE (13:45)
[2017-08-01] MEDS ORDERED: SODIUM CHL 0.9% 1000 ML BAG XX ONE (13:45)
[2017-08-01 14:01] LABS: Albumin 2.6 g/dL (3.4-5.0); BUN/Creatinine Ratio 7.5; Calcium 9.1 mg/dL (8.5-10.1)
[2017-08-01 14:09] LABS: Bilirubin, Total 0.3 mg/dL (0.2-1.0); Total Protein 5.7 g/dL (6.4-8.2)
[2017-08-01 16:49] VITALS: BP 146/69
[2017-08-01] MEDS ORDERED: diphenhdrAMINE HCL 50 MG/1 ML VL IV ONE (17:30)
[2017-08-01 22:00] VITALS: BP 159/80
[2017-08-01] MEDS ORDERED: ALBUTEROL SULF 2.5 MG/0.5ML(0.5%) NEB SOLN NEB ONE (22:00)
[2017-08-01] MEDS ORDERED: SODIUM POLYSTYRENE SULF 15GM/60ML SUSP PR ONE (22:00)
[2017-08-02] MEDS: KETOROLAC TROMETH 30 MG/ML 1ML VIAL IV PRN ×2 (01:32→08:33)
[2017-08-02] MEDS: diphenhdrAMINE HCL 50 MG/1 ML VL IV PRN ×2 (03:43→10:05)
[2017-08-02 04:33] VITALS: BP 141/67
[2017-08-02] MEDS: SODIUM CHLOR 0.9% PF (SALINE LOCK) 10ML VIAL/SYR IV SCH (05:44)
[2017-08-02] MEDS: cloNIDine HCL 0.1 MG TAB PO SCH (05:44)
[2017-08-02 06:52] LABS: Albumin 2.6 g/dL (3.4-5.0); Calcium 8.6 mg/dL (8.5-10.1); Potassium 4.7 mmol/L (3.5-5.1)
[2017-08-02 06:54] LABS: BUN/Creatinine Ratio 6.8
[2017-08-02 06:56] LABS: Bilirubin, Total 0.4 mg/dL (0.2-1.0); Total Protein 5.8 g/dL (6.4-8.2)
[2017-08-02 06:57] LABS: Hematocrit 22.7 % (41.0-53.0); Red Blood Cells 2.65 10^6/uL (4.5-5.90); White Blood Cell 3.6 10^3/uL (4.4-10.8)
[2017-08-02 06:59] LABS: Hemoglobin 8.1 g/dL (13.5-17.5); Mean Corpuscular Hemoglobin 30.5 pg (28.0-32.0); Mean Corpuscular Hgb Conc. 35.5 g/dL (32.0-36.0); Mean Corpuscular Volume 85.9 fL (80.0-100.0); Platelet Count (auto) 137 10^3/uL (140-450); Red Cell Distribution Width 15.2 % (11.8-14.3)
[2017-08-02 07:03] LABS: Basophils % (manual) 0 (0.0-2.0); Blast Cells 0; Metamyelocytes % 0; Myelocytes % 0; Promyelocytes % 0; Reactive Lymphocytes 0
[2017-08-02] MEDS: CALCIUM ACETATE 667 MG CAP PO SCH ×2 (08:01→12:15)
[2017-08-02 08:26] LABS: Band Neutrophils % (manual) 1; Eosinophils % (manual) 1 (0-7); Lymphocytes % (manual) 8 (10.0-50.0); Monocytes % (manual) 7 (0-12)
[2017-08-02 08:54] VITALS: BP 124/72
[2017-08-02] MEDS: cefTRIAXone 1GM/10ml IVPUSH 10 ML IV SCH (09:05)
[2017-08-02] MEDS: BOOST PLUS 8 ounce PO SCH ×2 (09:05→12:15)
[2017-08-02] MEDS: FAMOTIDINE 20 MG TAB PO SCH (10:00)
[2017-08-02] MEDS: MULTIPLE VITAMIN TAB PO SCH (10:05)
[2017-08-02] MEDS: MINOXIDIL 10 MG TAB PO SCH (10:05)
[2017-08-02] MEDS: PANTOPRAZOLE 40 MG TAB PO SCH (10:05)
[2017-08-02] MEDS: METOPROLOL TARTRATE 50 MG TAB PO SCH (10:06)
[2017-08-02] MEDS: NIFEdipine ER 30 MG TAB PO SCH (10:07)
[2017-08-02] MEDS ORDERED: diphenhdrAMINE HCL 50 MG/1 ML VL IV ONE (11:00)
[2017-08-02] MEDS ORDERED: diphenhdrAMINE HCL 25 MG CAP PO ONE (11:00)
[2017-08-02 12:51] VITALS: BP 123/68
[2017-08-02] MEDS ORDERED: HYDROmorphone HCL 2 MG TAB PO ONE (13:00)
[2017-08-02 15:16] VITALS: BP 123/68
== END 2017-08-02 17:20 | disposition home or self-care (01) | DRG 291 ==
LOC: ER 00:05 → TELE 00:06 → TELE-WESTW 12:18
PROVIDERS: ADMIT Internal Medicine; ATTEND Family Medicine
PROC: 5A1D70Z Performance of Urinary Filtration, Intermittent, Less than 6 Hours Per Day (ICD-10-PCS; principal; 2017-08-01)
DX: I13.2 Hypertensive heart and chronic kidney disease with heart failure and with stage 5 chronic kidney disease, or end stage renal disease (principal); N18.6 End stage renal disease; J18.1 Lobar pneumonia, unspecified organism; N39.0 Urinary tract infection, site not specified; R31.9 Hematuria, unspecified; Z99.2 Dependence on renal dialysis; F41.9 Anxiety disorder, unspecified; K21.9 Gastro-esophageal reflux disease without esophagitis; D63.8 Anemia in other chronic diseases classified elsewhere; E87.5 Hyperkalemia; J45.909 Unspecified asthma, uncomplicated; F12.90 Cannabis use, unspecified, uncomplicated; M79.604 Pain in right leg; I50.9 Heart failure, unspecified; Z82.49 Family history of ischemic heart disease and other diseases of the circulatory system; Z88.6 Allergy status to analgesic agent; Z83.3 Family history of diabetes mellitus; Z91.15 Patient's noncompliance with renal dialysis; Z91.19 Patient's noncompliance with other medical treatment and regimen; Z88.5 Allergy status to narcotic agent; Z88.8 Allergy status to other drugs, medicaments and biological substances; Z79.899 Other long term (current) drug therapy
CPT/HCPCS: 36415; 71045; 80048; 80053; 82962; 83735; 85007; 85025; 85027; 87081; 90935; 93005; 93971; 96374; 96375; J0610; J0885; J1815; J1885

== ENCOUNTER 2017-09-18 23:55 | Inpatient (IN) | payer MEDICARE, MEDICAID ==
[~2017-09-18] VITALS: Ht 165.1 cm; Wt 68.0 kg
[2017-09-19] MEDS ORDERED: MEPERIDINE HCL (25 MG/ML) 1ML VIAL IM ONE (03:15)
[2017-09-19 07:10] LABS: Basophils # (auto) 0 uL; Basophils % (auto) 0.3 % (0.0-2.0); Eosinophils # (auto) 0.4 uL; Hemoglobin 7.5 g/dL (13.5-17.5); Lymphocytes # (auto) 0.4 uL
[2017-09-19 07:20] LABS: Eosinophils % (auto) 6.7 % (0.0-7.0); Hematocrit 21.2 % (41.0-53.0); Lymphocytes % (auto) 6.1 % (10.0-50.0); Mean Corpuscular Hemoglobin 30.7 pg (28.0-32.0); Mean Corpuscular Hgb Conc. 35.3 g/dL (32.0-36.0); Mean Corpuscular Volume 86.8 fL (80.0-100.0); Monocytes # (auto) 0.6 uL; Monocytes % (auto) 9.6 % (0.0-12.0); Neutrophils # (auto) 5.1 uL; Neutrophils % (auto) 77.3 % (37.0-80.0); Platelet Count (auto) 143 10^3/uL (140-450); Red Blood Cells 2.44 10^6/uL (4.5-5.90); Red Cell Distribution Width 14.5 % (11.8-14.3); White Blood Cell 6.6 10^3/uL (4.4-10.8)
[2017-09-19 07:29] LABS: Potassium 4.7 mmol/L (3.5-5.1)
[2017-09-19 07:34] LABS: Albumin 3.1 g/dL (3.4-5.0); BUN/Creatinine Ratio 6.5; Calcium 9.5 mg/dL (8.5-10.1)
[2017-09-19 07:36] LABS: Bilirubin, Total 0.6 mg/dL (0.2-1.0); Total Protein 6.7 g/dL (6.4-8.2)
[2017-09-19] MEDS ORDERED: MORPHINE SULFATE 4 MG/ML SYR/VIAL IV ONE (08:00)
[2017-09-19] MEDS ORDERED: ONDANSETRON HCL 4 MG/2 ML VIAL IV ONE (08:00)
[2017-09-19] MEDS ORDERED: IBUPROFEN 800 MG TAB PO ONE (09:15)
[2017-09-19] MEDS ORDERED: VANCOMYCIN PER PHARMACY 0 MG IV SCH (10:00)
[2017-09-19] MEDS ORDERED: PIPERACILLIN-TAZOB 2.25GM 50 ML IV ONE (10:00)
[2017-09-19] MEDS ORDERED: LACTULOSE 20Gm/30ML SOLN PO PRN (10:15)
[2017-09-19] MEDS ORDERED: TEMAZEPAM 15 MG CAP PO PRN (10:15)
[2017-09-19] MEDS ORDERED: PROMETHAZINE HCL 25 MG/ML 1ML IV PRN (10:15)
[2017-09-19] MEDS ORDERED: NITROGLYCERIN 0.4 MG SL TAB SL PRN (10:15)
[2017-09-19] MEDS ORDERED: MORPHINE SULF INJ 2 MG/ML SYRINGE 1ML IV PRN ×2 (10:15)
[2017-09-19] MEDS ORDERED: ENALAPRIL MALEATE 10 MG TAB PO SCH (10:30)
[2017-09-19] MEDS ORDERED: VANCOMYCIN 1GM/250ML 250 ML IV ONE (10:30)
[2017-09-19] MEDS ORDERED: PIPERACILLIN-TAZOB 0.75 GM in D5W 5% 50 ML IV SCH (10:45)
[2017-09-19] MEDS: MINOXIDIL 10 MG TAB PO SCH ×2 (11:14→22:00)
[2017-09-19] MEDS: NIFEdipine ER 30 MG TAB PO SCH (11:15)
[2017-09-19] MEDS: METOPROLOL TARTRATE 50 MG TAB PO SCH ×2 (11:15→22:15)
[2017-09-19] MEDS ORDERED: LEVOFLOXACIN 250MG 50 ML IV SCH (12:00)
[2017-09-19] MEDS: MORPHINE SULFATE 4 MG/ML SYR/VIAL IV PRN ×2 (13:05→17:09)
[2017-09-19] MEDS: diphenhdrAMINE HCL 25 MG CAP PO PRN (13:25)
[2017-09-19 13:51] LABS: Hemoglobin 8.1 g/dL (13.5-17.5)
[2017-09-19 13:53] LABS: Hematocrit 23.2 % (41.0-53.0)
[2017-09-19] MEDS ORDERED: cloNIDine HCL 0.1 MG TAB PO SCH (14:00)
[2017-09-19] MEDS ORDERED: PROMETHAZINE HCL 6.25 MG/5 ML ORAL SYRUP PO PRN (14:00)
[2017-09-19] MEDS: cloNIDine HCL 0.1 MG TAB PO SCH ×2 (15:24→22:14)
[2017-09-19] MEDS: CALCIUM ACETATE 667 MG CAP PO SCH ×2 (15:24→22:15)
[2017-09-19] MEDS: PROMETHAZINE HCL 25 MG/ML 1ML IV PRN (21:07)
[2017-09-19 21:17] LABS: Hemoglobin 8.1 g/dL (13.5-17.5)
[2017-09-19 21:18] LABS: Hematocrit 23.2 % (41.0-53.0)
[2017-09-19] MEDS ORDERED: PIPERACILLIN-TAZOB 2.25GM 50 ML IV SCH (22:00)
[2017-09-19] MEDS: PANTOPRAZOLE 40 MG TAB PO SCH (22:15)
[2017-09-20] VITALS (7 sets, daily range): BP systolic 102–140; BP diastolic 42–87
[2017-09-20] MEDS: IBUPROFEN 400 MG TAB PO PRN ×2 (02:57→14:56)
[2017-09-20] MEDS: MORPHINE SULFATE 4 MG/ML SYR/VIAL IV PRN ×4 (03:35→22:40)
[2017-09-20] MEDS: PROMETHAZINE HCL 25 MG/ML 1ML IV PRN (03:36)
[2017-09-20] MEDS: cloNIDine HCL 0.1 MG TAB PO SCH ×3 (05:24→22:41)
[2017-09-20] MEDS: diphenhdrAMINE HCL 25 MG CAP PO PRN (05:25)
[2017-09-20] MEDS: CALCIUM ACETATE 667 MG CAP PO SCH ×3 (05:25→22:41)
[2017-09-20 08:36] LABS: Basophils # (auto) 0 uL; Eosinophils # (auto) 0.1 uL; Hemoglobin 7.6 g/dL (13.5-17.5); Lymphocytes # (auto) 0.4 uL; Lymphocytes % (auto) 4.1 % (10.0-50.0)
[2017-09-20 08:38] LABS: Basophils % (auto) 0.2 % (0.0-2.0); Eosinophils % (auto) 0.8 % (0.0-7.0); Hematocrit 21.8 % (41.0-53.0); Mean Corpuscular Hemoglobin 30.3 pg (28.0-32.0); Mean Corpuscular Hgb Conc. 34.7 g/dL (32.0-36.0); Mean Corpuscular Volume 87.4 fL (80.0-100.0); Monocytes # (auto) 0.7 uL; Monocytes % (auto) 7.6 % (0.0-12.0); Neutrophils # (auto) 8.3 uL; Neutrophils % (auto) 87.3 % (37.0-80.0); Platelet Count (auto) 126 10^3/uL (140-450); Red Cell Distribution Width 14.7 % (11.8-14.3); White Blood Cell 9.5 10^3/uL (4.4-10.8)
[2017-09-20 08:45] LABS: Calcium 9.4 mg/dL (8.5-10.1); Potassium 5.3 mmol/L (3.5-5.1)
[2017-09-20 08:52] LABS: BUN/Creatinine Ratio 7.3; Bilirubin, Total 1.5 mg/dL (0.2-1.0); Total Protein 6.6 g/dL (6.4-8.2)
[2017-09-20] MEDS: METOPROLOL TARTRATE 50 MG TAB PO SCH ×2 (10:00→22:40)
[2017-09-20] MEDS ORDERED: ENOXAPARIN SOD 30 MG/0.3 ML SYRINGE SC SCH (10:00)
[2017-09-20] MEDS: MINOXIDIL 10 MG TAB PO SCH ×2 (10:00→22:00)
[2017-09-20] MEDS: PANTOPRAZOLE 40 MG TAB PO SCH ×2 (10:00→22:41)
[2017-09-20] MEDS: NIFEdipine ER 30 MG TAB PO SCH (10:00)
[2017-09-20] MEDS: metroNIDAZOLE 500MG/100ML 100 ML IV SCH (12:15)
[2017-09-20] MEDS ORDERED: IOHEXOL 300 MG/ML 100ML BOTTLE IJ ONE (14:33)
[2017-09-21] MEDS: metroNIDAZOLE 500MG/100ML 100 ML IV SCH ×2 (00:15→12:15)
[2017-09-21] MEDS: IBUPROFEN 400 MG TAB PO PRN (02:10)
[2017-09-21] MEDS: MORPHINE SULFATE 4 MG/ML SYR/VIAL IV PRN ×4 (02:53→22:10)
[2017-09-21 05:13] VITALS: BP 107/69
[2017-09-21] MEDS: cloNIDine HCL 0.1 MG TAB PO SCH ×3 (05:29→22:00)
[2017-09-21] MEDS: CALCIUM ACETATE 667 MG CAP PO SCH ×3 (05:34→22:09)
[2017-09-21 07:00] LABS: Hematocrit 21.2 % (41.0-53.0); Platelet Count (auto) 101 10^3/uL (140-450); Red Cell Distribution Width 14.9 % (11.8-14.3)
[2017-09-21 07:02] LABS: Hemoglobin 7.5 g/dL (13.5-17.5); Mean Corpuscular Hgb Conc. 35.4 g/dL (32.0-36.0); Mean Corpuscular Volume 87.6 fL (80.0-100.0); Red Blood Cells 2.41 10^6/uL (4.5-5.90); White Blood Cell 4.3 10^3/uL (4.4-10.8)
[2017-09-21 07:07] LABS: Band Neutrophils % (manual) 0; Basophils % (manual) 0 (0.0-2.0); Blast Cells 0; Metamyelocytes % 0; Myelocytes % 0; Promyelocytes % 0; Reactive Lymphocytes 0
[2017-09-21 07:28] LABS: Albumin 2.5 g/dL (3.4-5.0); BUN/Creatinine Ratio 6.5; Calcium 9.1 mg/dL (8.5-10.1); Potassium 5.2 mmol/L (3.5-5.1); Total Protein 5.6 g/dL (6.4-8.2)
[2017-09-21 08:00] VITALS: BP 120/59
[2017-09-21 08:23] LABS: Eosinophils % (manual) 8 (0-7); Lymphocytes % (manual) 6 (10.0-50.0); Monocytes % (manual) 16 (0-12)
[2017-09-21] MEDS ORDERED: LORazepam 2MG/ML-1ML VIAL IV ONE (09:45)
[2017-09-21] MEDS ORDERED: SODIUM CHL 0.9% 1000 ML BAG XX ONE (10:00)
[2017-09-21] MEDS ORDERED: EPOETIN ALFA 10,000 UNIT/1 ML VIAL IV ONE (10:00)
[2017-09-21] MEDS: MINOXIDIL 10 MG TAB PO SCH ×2 (10:03→22:09)
[2017-09-21] MEDS: NIFEdipine ER 30 MG TAB PO SCH (10:03)
[2017-09-21] MEDS: PANTOPRAZOLE 40 MG TAB PO SCH ×2 (10:04→22:10)
[2017-09-21] MEDS: METOPROLOL TARTRATE 50 MG TAB PO SCH ×2 (10:04→22:09)
[2017-09-21 12:00] VITALS: BP 131/69
[2017-09-21 16:00] VITALS: BP 129/81
[2017-09-21] MEDS ORDERED: LEVOFLOXACIN 250MG 50 ML IV SCH (16:00)
[2017-09-21] MEDS ORDERED: VANCOMYCIN 1GM/250ML 250 ML IV ONE (18:00)
[2017-09-21 22:00] VITALS: BP 122/56
[2017-09-22] VITALS (9 sets, daily range): BP systolic 123–141; BP diastolic 51–75
[2017-09-22] MEDS: metroNIDAZOLE 500MG/100ML 100 ML IV SCH ×3 (00:15→11:58)
[2017-09-22] MEDS: MORPHINE SULFATE 4 MG/ML SYR/VIAL IV PRN ×2 (02:16→06:26)
[2017-09-22] MEDS: cloNIDine HCL 0.1 MG TAB PO SCH ×2 (06:26→14:00)
[2017-09-22] MEDS: CALCIUM ACETATE 667 MG CAP PO SCH ×2 (06:26→14:00)
[2017-09-22] MEDS ORDERED: EPOETIN ALFA 10,000 UNIT/1 ML VIAL IV ONE (09:30)
[2017-09-22] MEDS ORDERED: SODIUM CHL 0.9% 1000 ML BAG XX ONE (09:30)
[2017-09-22] MEDS: PANTOPRAZOLE 40 MG TAB PO SCH (10:00)
[2017-09-22] MEDS: METOPROLOL TARTRATE 50 MG TAB PO SCH (10:00)
[2017-09-22] MEDS: MINOXIDIL 10 MG TAB PO SCH (10:00)
[2017-09-22] MEDS: NIFEdipine ER 30 MG TAB PO SCH (10:00)
[2017-09-22] MEDS ORDERED: diphenhdrAMINE HCL 50 MG/1 ML VL IV ONE (11:45)
[2017-09-22 13:13] LABS: Hematocrit 19.8 % (41.0-53.0)
[2017-09-22 13:21] LABS: Hemoglobin 6.9 g/dL (13.5-17.5)
[2017-09-22] MEDS ORDERED: LEVO250T45 PO (13:37)
[2017-09-22] MEDS ORDERED: METR500T PO (13:37)
[2017-09-22] MEDS ORDERED: VANCOMYCIN 1GM/250ML 250 ML IV ONE (22:00)
== END 2017-09-22 19:00 | disposition home or self-care (01) | DRG 371 ==
LOC: ER 23:55 → TELE 23:56 → TELE-CENTR 09-20 03:01 → CENTRAL 09-22 05:21
PROVIDERS: ADMIT Internal Medicine; ATTEND Internal Medicine
PROC: 5A1D70Z Performance of Urinary Filtration, Intermittent, Less than 6 Hours Per Day (ICD-10-PCS; 2017-09-20)
PROC: 30233N1 Transfusion of Nonautologous Red Blood Cells into Peripheral Vein, Percutaneous Approach (ICD-10-PCS; principal; 2017-09-22)
PROC: 5A1D70Z Performance of Urinary Filtration, Intermittent, Less than 6 Hours Per Day (ICD-10-PCS; 2017-09-22)
DX: K65.1 Peritoneal abscess (principal); J96.00 Acute respiratory failure, unspecified whether with hypoxia or hypercapnia; N18.6 End stage renal disease; L03.116 Cellulitis of left lower limb; I13.2 Hypertensive heart and chronic kidney disease with heart failure and with stage 5 chronic kidney disease, or end stage renal disease; J81.1 Chronic pulmonary edema; R18.8 Other ascites; Z94.0 Kidney transplant status; I50.9 Heart failure, unspecified; E11.22 Type 2 diabetes mellitus with diabetic chronic kidney disease; Z99.2 Dependence on renal dialysis; K21.9 Gastro-esophageal reflux disease without esophagitis; D63.8 Anemia in other chronic diseases classified elsewhere; J45.909 Unspecified asthma, uncomplicated; Z90.49 Acquired absence of other specified parts of digestive tract; M71.20 Synovial cyst of popliteal space [Baker], unspecified knee; E87.5 Hyperkalemia; F12.90 Cannabis use, unspecified, uncomplicated; Z82.49 Family history of ischemic heart disease and other diseases of the circulatory system; Z83.3 Family history of diabetes mellitus; Z86.718 Personal history of other venous thrombosis and embolism; Z88.8 Allergy status to other drugs, medicaments and biological substances
CPT/HCPCS: 36415; 36600; 71045; 73610; 74177; 76705; 78226; 80053; 80202; 82550; 82805; 83605; 83880; 84443; 84484; 85007; 85014; 85018; 85025; 85027; 85045; 85379; 85652; 86850; 86900; 86901; 86920; 87040; 87081; 90935; 93005; 93971; 96365; 96372; 96375; J0885; J2405; J2543; J3490

== ENCOUNTER 2017-10-17 16:55 | Inpatient (IN) | payer MEDICARE, MEDICAID ==
[~2017-10-17] VITALS: Ht 152.4 cm; Wt 66.3 kg
[~2017-10-17 16:55] MED LIST changes: +LEVO250T45 PO; +METR500T PO
[2017-10-17 19:26] LABS: Basophils # (auto) 0 uL; Eosinophils # (auto) 0.4 uL; Monocytes # (auto) 0.5 uL; White Blood Cell 5.2 10^3/uL (4.4-10.8)
[2017-10-17 19:29] LABS: Basophils % (auto) 0.3 % (0.0-2.0); Eosinophils % (auto) 7.8 % (0.0-7.0); Hematocrit 22.1 % (41.0-53.0); Lymphocytes # (auto) 0.3 uL; Lymphocytes % (auto) 5.9 % (10.0-50.0); Mean Corpuscular Hemoglobin 31.7 pg (28.0-32.0); Mean Corpuscular Hgb Conc. 36.4 g/dL (32.0-36.0); Mean Corpuscular Volume 87.1 fL (80.0-100.0); Monocytes % (auto) 9.9 % (0.0-12.0); Neutrophils % (auto) 76.1 % (37.0-80.0); Platelet Count (auto) 145 10^3/uL (140-450); Red Blood Cells 2.54 10^6/uL (4.5-5.90); Red Cell Distribution Width 14.5 % (11.8-14.3)
[2017-10-17 19:49] LABS: INR 1.04 (0.9-1.15); Partial Thromboplastin Time 28.6 sec (23.78-33.04); Prothrombin Time 11.1 sec (9.27-12.13)
[2017-10-17 19:50] LABS: Albumin 3.3 g/dL (3.4-5.0); BUN/Creatinine Ratio 5.2; Bilirubin, Total 0.6 mg/dL (0.2-1.0); Calcium 9.2 mg/dL (8.5-10.1); Total Protein 6.8 g/dL (6.4-8.2)
[2017-10-17 20:03] LABS: Potassium 5.8 mmol/L (3.5-5.1)
[2017-10-17] MEDS ORDERED: SODIUM BICARBONATE 8.4 % INJ 50ML VIAL IV ONE (20:45)
[2017-10-17] MEDS ORDERED: InsuLIN REG 1unit/0.01ml Soln (100units/ml) IV ONE (20:45)
[2017-10-17] MEDS ORDERED: DEXTROSE (50%) 50ML SYRG IV ONE (20:45)
[2017-10-17] MEDS ORDERED: CALCIUM GLUC 4.65meq/50ml D5AE 50 ML IV ONE (20:45)
[2017-10-17] MEDS ORDERED: SODIUM POLYSTYRENE SULF 15GM/60ML SUSP PR ONE (20:45)
[2017-10-17] MEDS ORDERED: cloNIDine HCL 0.1 MG TAB PO ONE (21:00)
[2017-10-17] MEDS: cloNIDine HCL 0.1 MG TAB PO SCH (22:00)
[2017-10-17] MEDS ORDERED: ONDANSETRON HCL 4 MG/2 ML VIAL IV PRN (22:00)
[2017-10-17] MEDS: METOPROLOL TARTRATE 50 MG TAB PO SCH (22:38)
[2017-10-17] MEDS: MINOXIDIL 10 MG TAB PO SCH (22:38)
[2017-10-18] MEDS ORDERED: traMADol HCL 50 MG TAB PO ONE ×2 (00:30→07:45)
[2017-10-18] MEDS: cloNIDine HCL 0.1 MG TAB PO SCH ×3 (06:00→22:28)
[2017-10-18 07:55] LABS: Basophils # (auto) 0 uL; Eosinophils # (auto) 0.3 uL; Lymphocytes # (auto) 0.4 uL; Red Blood Cells 2.47 10^6/uL (4.5-5.90)
[2017-10-18 07:56] LABS: Basophils % (auto) 0.3 % (0.0-2.0); Eosinophils % (auto) 5.8 % (0.0-7.0); Hematocrit 21.7 % (41.0-53.0); Hemoglobin 7.6 g/dL (13.5-17.5); Mean Corpuscular Hemoglobin 30.8 pg (28.0-32.0); Monocytes # (auto) 0.6 uL; Monocytes % (auto) 12.1 % (0.0-12.0); Neutrophils % (auto) 74.8 % (37.0-80.0); Nucleated Red Blood Cells % 0.1 %; Platelet Count (auto) 136 10^3/uL (140-450); Red Cell Distribution Width 14.5 % (11.8-14.3); White Blood Cell 5.3 10^3/uL (4.4-10.8)
[2017-10-18 08:13] LABS: Albumin 2.9 g/dL (3.4-5.0); BUN/Creatinine Ratio 5.6; Calcium 8.9 mg/dL (8.5-10.1)
[2017-10-18 08:20] LABS: Bilirubin, Total 0.7 mg/dL (0.2-1.0); Total Protein 6.2 g/dL (6.4-8.2)
[2017-10-18] MEDS: CALCIUM ACETATE 667 MG CAP PO SCH ×3 (08:20→18:00)
[2017-10-18 08:29] LABS: Potassium 6.9 mmol/L (3.5-5.1)
[2017-10-18] MEDS ORDERED: SODIUM BICARBONATE 8.4 % INJ 50ML VIAL IV ONE (08:45)
[2017-10-18] MEDS ORDERED: InsuLIN REG 1unit/0.01ml Soln (100units/ml) IV ONE (08:45)
[2017-10-18] MEDS ORDERED: CALCIUM GLUC 4.65meq/50ml D5AE 50 ML IV ONE (08:45)
[2017-10-18] MEDS ORDERED: SODIUM POLYSTYRENE SULF 15GM/60ML SUSP PO ONE (08:45)
[2017-10-18] MEDS ORDERED: DEXTROSE (50%) 50ML SYRG IV ONE (09:00)
[2017-10-18] MEDS ORDERED: diphenhdrAMINE HCL 50 MG/1 ML VL IV ONE (09:30)
[2017-10-18] MEDS ORDERED: EPOETIN ALFA 10,000 UNIT/1 ML VIAL IV ONE (09:30)
[2017-10-18] MEDS ORDERED: SODIUM CHL 0.9% 1000 ML BAG XX ONE (09:30)
[2017-10-18] MEDS ORDERED: diphenhdrAMINE HCL 25 MG CAP PO ONE ×2 (09:59→10:00)
[2017-10-18] MEDS: MINOXIDIL 10 MG TAB PO SCH ×2 (10:13→22:26)
[2017-10-18] MEDS: METOPROLOL TARTRATE 50 MG TAB PO SCH ×2 (10:14→22:38)
[2017-10-18] MEDS: NIFEdipine ER 30 MG TAB PO SCH (10:14)
[2017-10-18] MEDS: PANTOPRAZOLE 40 MG TAB PO SCH (10:14)
[2017-10-18] MEDS ORDERED: cefTRIAXone 1GM/10ml IVPUSH 10 ML IV ONE ×2 (10:45→11:00)
[2017-10-18] MEDS ORDERED: diphenhdrAMINE HCL 25 MG CAP PO PRN (11:00)
[2017-10-18] MEDS: Ensure Enlive Strawberry 8oz Bottle PO SCH ×2 (13:10→18:00)
[2017-10-18 13:51] LABS: BUN/Creatinine Ratio 5.5; Calcium 8.7 mg/dL (8.5-10.1); Potassium 3.6 mmol/L (3.5-5.1)
[2017-10-18 14:40] VITALS: BP 140/80
[2017-10-18 17:00] VITALS: BP 128/70
[2017-10-18 17:07] VITALS: BP 155/76
[2017-10-18 22:13] VITALS: BP 147/86
[2017-10-18] MEDS ORDERED: MORPHINE SULF INJ 2 MG/ML SYRINGE 1ML IV ONE (22:30)
[2017-10-19 05:36] VITALS: BP 127/73
[2017-10-19] MEDS: cloNIDine HCL 0.1 MG TAB PO SCH (05:54)
[2017-10-19 08:42] VITALS: BP 116/62
[2017-10-19] MEDS ORDERED: cefTRIAXone 1GM/10ml IVPUSH 10 ML IV SCH (09:00)
[2017-10-19] MEDS: CALCIUM ACETATE 667 MG CAP PO SCH ×2 (09:02→12:45)
[2017-10-19] MEDS: Ensure Enlive Strawberry 8oz Bottle PO SCH ×2 (09:09→12:46)
[2017-10-19 09:39] LABS: Basophils # (auto) 0 uL; Hemoglobin 8.4 g/dL (13.5-17.5); Monocytes # (auto) 0.6 uL; Neutrophils # (auto) 2.9 uL; White Blood Cell 4.2 10^3/uL (4.4-10.8)
[2017-10-19 09:41] LABS: Basophils % (auto) 0.7 % (0.0-2.0); Eosinophils # (auto) 0.3 uL; Eosinophils % (auto) 8.3 % (0.0-7.0); Lymphocytes # (auto) 0.3 uL; Lymphocytes % (auto) 8.2 % (10.0-50.0); Mean Corpuscular Hemoglobin 30.4 pg (28.0-32.0); Mean Corpuscular Hgb Conc. 34.9 g/dL (32.0-36.0); Monocytes % (auto) 13.9 % (0.0-12.0); Neutrophils % (auto) 68.9 % (37.0-80.0); Platelet Count (auto) 158 10^3/uL (140-450); Red Blood Cells 2.76 10^6/uL (4.5-5.90); Red Cell Distribution Width 14.4 % (11.8-14.3)
[2017-10-19 10:05] LABS: Anion Gap 10 (5-15); BUN/Creatinine Ratio 5.6; Blood Urea Nitrogen 48 mg/dL (7-18); Calcium 9.7 mg/dL (8.5-10.1); Carbon Dioxide 32 mmol/L (21-32); Chloride 93 mmol/L (98-107); GFR African American 10 mL/min; GFR Non-African American 8 mL/min; Glucose 89 mg/dL (74-106); Potassium 4.9 mmol/L (3.5-5.1); Sodium 135 mmol/L (136-145)
[2017-10-19] MEDS: PANTOPRAZOLE 40 MG TAB PO SCH (10:12)
[2017-10-19] MEDS: MINOXIDIL 10 MG TAB PO SCH (10:12)
[2017-10-19] MEDS: NIFEdipine ER 30 MG TAB PO SCH (10:13)
[2017-10-19] MEDS: METOPROLOL TARTRATE 50 MG TAB PO SCH (10:13)
[2017-10-19 12:06] VITALS: BP 116/91
== END 2017-10-19 13:55 | disposition home or self-care (01) | DRG 871 ==
LOC: ER 16:55 → OVERFLOW 16:56 → EAST 10-18 14:48
PROVIDERS: ADMIT Nurse Practitioner; ATTEND Internal Medicine
PROC: 5A1D70Z Performance of Urinary Filtration, Intermittent, Less than 6 Hours Per Day (ICD-10-PCS; principal; 2017-10-18)
DX: A41.9 Sepsis, unspecified organism (principal); N18.6 End stage renal disease; I50.33 Acute on chronic diastolic (congestive) heart failure; I13.2 Hypertensive heart and chronic kidney disease with heart failure and with stage 5 chronic kidney disease, or end stage renal disease; E87.1 Hypo-osmolality and hyponatremia; E44.0 Moderate protein-calorie malnutrition; Z94.0 Kidney transplant status; E87.5 Hyperkalemia; F12.90 Cannabis use, unspecified, uncomplicated; D63.8 Anemia in other chronic diseases classified elsewhere; F41.9 Anxiety disorder, unspecified; G89.29 Other chronic pain; J45.909 Unspecified asthma, uncomplicated; K21.9 Gastro-esophageal reflux disease without esophagitis; Z82.49 Family history of ischemic heart disease and other diseases of the circulatory system; Z83.3 Family history of diabetes mellitus; Z91.15 Patient's noncompliance with renal dialysis; Z91.19 Patient's noncompliance with other medical treatment and regimen; Z99.2 Dependence on renal dialysis; Z90.49 Acquired absence of other specified parts of digestive tract; Z88.1 Allergy status to other antibiotic agents; Z88.5 Allergy status to narcotic agent; Z88.8 Allergy status to other drugs, medicaments and biological substances; Z68.28 Body mass index [BMI] 28.0-28.9, adult
CPT/HCPCS: 36415; 71045; 80048; 80053; 82962; 83605; 85025; 85610; 85730; 87040; 87081; 90935; 93970; 96374; 96375; 96376; J0610; J0696; J0885; J1642; J1815; J2405

== ENCOUNTER 2017-11-05 09:51 | Inpatient (IN) | payer MEDICARE, MEDICAID ==
[~2017-11-05] VITALS: Ht 165.1 cm; Wt 60.7 kg
[~2017-11-05 09:51] MED LIST changes: +LEVO250T19 PO; -LEVO250T45 PO
[2017-11-05] MEDS ORDERED: ONDANSETRON HCL 4 MG/2 ML VIAL IV ONE (12:00)
[2017-11-05] MEDS ORDERED: MORPHINE SULFATE 4 MG/ML SYR/VIAL IV ONE (12:00)
[2017-11-05] MEDS ORDERED: NITROGLYCERIN 0.4 MG SL TAB SL ONE (12:00)
[2017-11-05] MEDS ORDERED: ASPirin 81 mg TAB PO ONE (12:00)
[2017-11-05 12:09] LABS: Basophils # (auto) 0 uL; Eosinophils # (auto) 0.3 uL; Neutrophils # (auto) 2.5 uL; White Blood Cell 3.7 10^3/uL (4.4-10.8)
[2017-11-05 12:12] LABS: Basophils % (auto) 1.1 % (0.0-2.0); Eosinophils % (auto) 8.5 % (0.0-7.0); Hematocrit 21.7 % (41.0-53.0); Hemoglobin 7.7 g/dL (13.5-17.5); Lymphocytes # (auto) 0.4 uL; Lymphocytes % (auto) 9.9 % (10.0-50.0); Mean Corpuscular Hemoglobin 30.3 pg (28.0-32.0); Mean Corpuscular Hgb Conc. 35.5 g/dL (32.0-36.0); Mean Corpuscular Volume 85.3 fL (80.0-100.0); Monocytes # (auto) 0.5 uL; Monocytes % (auto) 12.3 % (0.0-12.0); Neutrophils % (auto) 68.2 % (37.0-80.0); Platelet Count (auto) 196 10^3/uL (140-450); Red Blood Cells 2.54 10^6/uL (4.5-5.90); Red Cell Distribution Width 14.5 % (11.8-14.3)
[2017-11-05 12:22] LABS: Albumin 3.4 g/dL (3.4-5.0); Calcium 9.7 mg/dL (8.5-10.1); Magnesium 2.1 mg/dL (1.6-2.6); Potassium 4.3 mmol/L (3.5-5.1)
[2017-11-05 12:24] LABS: BUN/Creatinine Ratio 4.6
[2017-11-05 12:33] LABS: Total Protein 6.8 g/dL (6.4-8.2)
[2017-11-05] MEDS ORDERED: traMADol HCL 50 MG TAB PO PRN (13:15)
[2017-11-05] MEDS ORDERED: LABETALOL HCL 5 MG/ML ML 20ML VIAL IV PRN ×2 (13:15)
[2017-11-05] MEDS ORDERED: NITROGLYCERIN 0.4 MG SL TAB SL PRN (13:15)
[2017-11-05] MEDS ORDERED: ALBUTEROL SULF 2.5 MG/0.5ML(0.5%) NEB SOLN NEB PRN (13:15)
[2017-11-05] MEDS: SODIUM CHLOR 0.9% PF (SALINE LOCK) 10ML VIAL/SYR IV SCH ×2 (13:33→22:22)
[2017-11-05] MEDS ORDERED: CALCIUM ACETATE 667 MG CAP PO SCH (14:00)
[2017-11-05] MEDS ORDERED: PATIENTS OWN MEDICATION (Clonidine Hydrochloride (Clonidine Hcl) 1 TAB) PO SCH (14:00)
[2017-11-05] MEDS: NITROGLYCERIN 0.2MG/HR TOPICAL PATCH TD SCH (14:57)
[2017-11-05] MEDS: cloNIDine HCL 0.1 MG TAB PO SCH ×2 (14:57→22:17)
[2017-11-05 15:30] VITALS: BP 174/119
[2017-11-05] MEDS: MORPHINE SULFATE 4 MG/ML SYR/VIAL IV PRN ×2 (17:26→21:53)
[2017-11-05] MEDS: ONDANSETRON HCL 4 MG/2 ML VIAL IV PRN ×2 (17:27→21:53)
[2017-11-05] MEDS: CALCIUM ACETATE 667 MG CAP PO SCH (17:27)
[2017-11-05 18:10] VITALS: BP 161/105
[2017-11-05] MEDS: ALBUTEROL SULF 2.5 MG/0.5ML(0.5%) NEB SOLN NEB SCH ×2 (19:23→23:56)
[2017-11-05 19:26] VITALS: BP 161/105
[2017-11-05] MEDS ORDERED: diphenhdrAMINE HCL 25 MG CAP PO ONE (20:30)
[2017-11-05] MEDS: MINOXIDIL 10 MG TAB PO SCH (21:54)
[2017-11-05] MEDS: METOPROLOL TARTRATE 50 MG TAB PO SCH (21:55)
[2017-11-05 22:00] VITALS: BP 168/95
[2017-11-05] MEDS ORDERED: PATIENTS OWN MEDICATION (Metoprolol Tartrate 100 MG) PO SCH (22:00)
[2017-11-06] MEDS: MORPHINE SULFATE 4 MG/ML SYR/VIAL IV PRN ×2 (02:03→06:51)
[2017-11-06] MEDS: ONDANSETRON HCL 4 MG/2 ML VIAL IV PRN ×2 (02:04→06:51)
[2017-11-06 05:00] VITALS: BP 156/104
[2017-11-06] MEDS: ALBUTEROL SULF 2.5 MG/0.5ML(0.5%) NEB SOLN NEB SCH ×3 (06:20→19:00)
[2017-11-06] MEDS: SODIUM CHLOR 0.9% PF (SALINE LOCK) 10ML VIAL/SYR IV SCH ×3 (06:29→22:15)
[2017-11-06 06:49] LABS: Cholesterol 223 mg/dL (< 200); HDL Cholesterol 96 mg/dL (40-59); LDL Cholesterol 101 mg/dL (< 100); Triglycerides 64 mg/dL (< 150)
[2017-11-06] MEDS: cloNIDine HCL 0.1 MG TAB PO SCH ×3 (06:51→22:00)
[2017-11-06 08:16] VITALS: BP 150/96
[2017-11-06] MEDS: NITROGLYCERIN 0.2MG/HR TOPICAL PATCH TD SCH (09:14)
[2017-11-06] MEDS: CALCIUM ACETATE 667 MG CAP PO SCH ×3 (09:16→18:12)
[2017-11-06] MEDS: PANTOPRAZOLE 40 MG TAB PO SCH (09:16)
[2017-11-06] MEDS ORDERED: OMEPRAZOLE 20 MG PO SCH (10:00)
[2017-11-06] MEDS ORDERED: PATIENTS OWN MEDICATION (Nifedipine (Nifedipine Er) 90 MG) PO SCH (10:00)
[2017-11-06 12:30] VITALS: BP 123/70
[2017-11-06] MEDS ORDERED: diphenhdrAMINE HCL 25 MG CAP PO PRN (13:45)
[2017-11-06] MEDS: MINOXIDIL 10 MG TAB PO SCH ×2 (14:28→22:15)
[2017-11-06] MEDS: NIFEdipine ER 30 MG TAB PO SCH (14:29)
[2017-11-06] MEDS: METOPROLOL TARTRATE 50 MG TAB PO SCH ×2 (14:30→22:14)
[2017-11-06 16:10] VITALS: BP 134/65
[2017-11-06] MEDS: MORPHINE SULF INJ 2 MG/ML SYRINGE 1ML IV PRN (21:14)
[2017-11-06 21:30] VITALS: BP 111/60
[2017-11-07] MEDS: ALBUTEROL SULF 2.5 MG/0.5ML(0.5%) NEB SOLN NEB SCH ×4 (00:08→18:18)
[2017-11-07] MEDS: MORPHINE SULF INJ 2 MG/ML SYRINGE 1ML IV PRN ×5 (01:27→21:12)
[2017-11-07 05:47] VITALS: BP 117/65
[2017-11-07] MEDS: SODIUM CHLOR 0.9% PF (SALINE LOCK) 10ML VIAL/SYR IV SCH ×3 (06:06→22:00)
[2017-11-07] MEDS: cloNIDine HCL 0.1 MG TAB PO SCH ×3 (06:07→22:00)
[2017-11-07 07:33] LABS: Basophils # (auto) 0 uL; Eosinophils # (auto) 0.7 uL; Lymphocytes # (auto) 0.4 uL; Lymphocytes % (auto) 8.7 % (10.0-50.0); Monocytes # (auto) 0.5 uL; Neutrophils # (auto) 2.6 uL; Red Blood Cells 2.41 10^6/uL (4.5-5.90)
[2017-11-07 07:36] LABS: Basophils % (auto) 0.5 % (0.0-2.0); Eosinophils % (auto) 15.7 % (0.0-7.0); Hemoglobin 7.5 g/dL (13.5-17.5); Mean Corpuscular Hgb Conc. 35.4 g/dL (32.0-36.0); Mean Corpuscular Volume 87.4 fL (80.0-100.0); Monocytes % (auto) 12.4 % (0.0-12.0); Neutrophils % (auto) 62.7 % (37.0-80.0); Nucleated Red Blood Cells % 0.1 %; Platelet Count (auto) 172 10^3/uL (140-450); Red Cell Distribution Width 14.7 % (11.8-14.3); White Blood Cell 4.2 10^3/uL (4.4-10.8)
[2017-11-07 07:54] LABS: BUN/Creatinine Ratio 6.1; Calcium 9.4 mg/dL (8.5-10.1); Potassium 5.2 mmol/L (3.5-5.1)
[2017-11-07 08:30] VITALS: BP 122/71
[2017-11-07] MEDS: CALCIUM ACETATE 667 MG CAP PO SCH ×3 (08:44→18:18)
[2017-11-07] MEDS: NIFEdipine ER 30 MG TAB PO SCH (10:00)
[2017-11-07] MEDS: MINOXIDIL 10 MG TAB PO SCH ×2 (10:36→21:59)
[2017-11-07] MEDS: METOPROLOL TARTRATE 50 MG TAB PO SCH ×2 (10:37→21:59)
[2017-11-07] MEDS: PANTOPRAZOLE 40 MG TAB PO SCH (10:37)
[2017-11-07] MEDS: ONDANSETRON HCL 4 MG/2 ML VIAL IV PRN ×3 (10:38→21:12)
[2017-11-07 12:54] VITALS: BP 120/69
[2017-11-07 16:45] VITALS: BP 125/66
[2017-11-07 22:00] VITALS: BP 114/56
[2017-11-08] MEDS: MORPHINE SULF INJ 2 MG/ML SYRINGE 1ML IV PRN ×5 (02:15→23:43)
[2017-11-08 05:00] VITALS: BP 104/44
[2017-11-08] MEDS: ALBUTEROL SULF 2.5 MG/0.5ML(0.5%) NEB SOLN NEB SCH ×5 (06:00→23:58)
[2017-11-08] MEDS: cloNIDine HCL 0.1 MG TAB PO SCH ×3 (06:05→22:00)
[2017-11-08] MEDS: SODIUM CHLOR 0.9% PF (SALINE LOCK) 10ML VIAL/SYR IV SCH ×3 (06:05→22:14)
[2017-11-08 08:06] LABS: Hematocrit 22.2 % (41.0-53.0); Hemoglobin 7.6 g/dL (13.5-17.5)
[2017-11-08 08:28] LABS: BUN/Creatinine Ratio 6.3; Calcium 9.5 mg/dL (8.5-10.1)
[2017-11-08 08:30] VITALS: BP 129/72
[2017-11-08] MEDS: CALCIUM ACETATE 667 MG CAP PO SCH ×3 (08:30→17:48)
[2017-11-08 09:12] LABS: Potassium 5.7 mmol/L (3.5-5.1)
[2017-11-08] MEDS: PANTOPRAZOLE 40 MG TAB PO SCH (10:45)
[2017-11-08] MEDS: NIFEdipine ER 30 MG TAB PO SCH (10:46)
[2017-11-08] MEDS: MINOXIDIL 10 MG TAB PO SCH ×2 (10:46→22:09)
[2017-11-08] MEDS: METOPROLOL TARTRATE 50 MG TAB PO SCH ×2 (10:46→22:09)
[2017-11-08] MEDS ORDERED: SODIUM CHL 0.9% 1000 ML BAG XX ONE (11:15)
[2017-11-08 12:47] LABS: Prothrombin Time 10.7 sec (9.27-12.13)
[2017-11-08 17:00] VITALS: BP 92/41
[2017-11-08 21:19] VITALS: BP 82/41
[2017-11-08 21:29] VITALS: BP 136/69
[2017-11-09 04:46] VITALS: BP 127/58
[2017-11-09] MEDS: MORPHINE SULF INJ 2 MG/ML SYRINGE 1ML IV PRN ×2 (05:47→09:39)
[2017-11-09] MEDS: ONDANSETRON HCL 4 MG/2 ML VIAL IV PRN ×2 (05:47→09:39)
[2017-11-09] MEDS: SODIUM CHLOR 0.9% PF (SALINE LOCK) 10ML VIAL/SYR IV SCH ×2 (05:50→15:18)
[2017-11-09] MEDS: cloNIDine HCL 0.1 MG TAB PO SCH ×2 (06:08→15:20)
[2017-11-09] MEDS: ALBUTEROL SULF 2.5 MG/0.5ML(0.5%) NEB SOLN NEB SCH (07:12)
[2017-11-09] MEDS: CALCIUM ACETATE 667 MG CAP PO SCH ×3 (08:10→17:48)
[2017-11-09 09:00] VITALS: BP 137/71
[2017-11-09] MEDS: MINOXIDIL 10 MG TAB PO SCH (09:36)
[2017-11-09] MEDS: METOPROLOL TARTRATE 50 MG TAB PO SCH (09:38)
[2017-11-09] MEDS: NIFEdipine ER 30 MG TAB PO SCH (09:38)
[2017-11-09] MEDS: PANTOPRAZOLE 40 MG TAB PO SCH (09:39)
[2017-11-09 10:04] LABS: Hemoglobin 7.3 g/dL (13.5-17.5)
[2017-11-09 10:20] LABS: BUN/Creatinine Ratio 5.2; Potassium 4.9 mmol/L (3.5-5.1)
[2017-11-09 10:21] LABS: Calcium 9.6 mg/dL (8.5-10.1)
[2017-11-09] MEDS ORDERED: ALBUAER3 IN (11:48)
[2017-11-09 13:00] VITALS: BP 125/58
[2017-11-09 14:57] VITALS: BP 125/58
[2017-11-09 16:46] VITALS: BP 114/60
== END 2017-11-09 17:30 | disposition home or self-care (01) | DRG 291 ==
LOC: ER 09:51 → TELE 09:52 → TELE-EAST 13:49
PROVIDERS: ADMIT Internal Medicine; ATTEND Internal Medicine
PROC: 5A1D70Z Performance of Urinary Filtration, Intermittent, Less than 6 Hours Per Day (ICD-10-PCS; 2017-11-06)
PROC: 0W993ZZ Drainage of Right Pleural Cavity, Percutaneous Approach (ICD-10-PCS; principal; 2017-11-08)
PROC: 5A1D70Z Performance of Urinary Filtration, Intermittent, Less than 6 Hours Per Day (ICD-10-PCS; 2017-11-08)
DX: I13.2 Hypertensive heart and chronic kidney disease with heart failure and with stage 5 chronic kidney disease, or end stage renal disease (principal); I50.33 Acute on chronic diastolic (congestive) heart failure; N18.6 End stage renal disease; J96.00 Acute respiratory failure, unspecified whether with hypoxia or hypercapnia; F11.20 Opioid dependence, uncomplicated; J90 Pleural effusion, not elsewhere classified; E87.5 Hyperkalemia; D63.8 Anemia in other chronic diseases classified elsewhere; E78.5 Hyperlipidemia, unspecified; F12.90 Cannabis use, unspecified, uncomplicated; F41.9 Anxiety disorder, unspecified; G89.29 Other chronic pain; K21.9 Gastro-esophageal reflux disease without esophagitis; J45.909 Unspecified asthma, uncomplicated; N63.20 Unspecified lump in the left breast, unspecified quadrant; Z82.49 Family history of ischemic heart disease and other diseases of the circulatory system; Z83.3 Family history of diabetes mellitus; Z99.2 Dependence on renal dialysis; Z79.899 Other long term (current) drug therapy; Z90.49 Acquired absence of other specified parts of digestive tract; Z84.1 Family history of disorders of kidney and ureter; Z88.5 Allergy status to narcotic agent; Z88.1 Allergy status to other antibiotic agents; Z88.8 Allergy status to other drugs, medicaments and biological substances
CPT/HCPCS: 10022; 32555; 36415; 71045; 76604; 76942; 80048; 80053; 80061; 82550; 83735; 83880; 84132; 84443; 84484; 85014; 85018; 85025; 85379; 85610; 85652; 86141; 87081; 90935; 93005; 94640; 96374; 96375; A6257; J2405

== ENCOUNTER 2017-12-01 14:46 | Inpatient (IN) | payer MEDICARE, MEDICAID ==
[~2017-12-01] VITALS: Ht 165.1 cm; Wt 67.3 kg
[~2017-12-01 14:46] MED LIST changes: +ALBUAER3 IN
[2017-12-01] MEDS ORDERED: SODIUM CHLORIDE 0.9% 1,000 ML IV ONE (15:39)
[2017-12-01] MEDS ORDERED: FUROSEMIDE 40 MG/4 ML VIAL IV ONE (15:45)
[2017-12-01] MEDS ORDERED: cefTRIAXone 1GM/10ml IVPUSH 10 ML IV ONE (15:45)
[2017-12-01] MEDS ORDERED: PROMETHAZINE HCL 25 MG/ML 1ML IV ONE (16:00)
[2017-12-01] MEDS ORDERED: MORPHINE SULFATE 4 MG/ML SYR/VIAL IV ONE (16:00)
[2017-12-01] MEDS ORDERED: TEMAZEPAM 15 MG CAP PO PRN (16:30)
[2017-12-01] MEDS ORDERED: LACTULOSE 20Gm/30ML SOLN PO PRN (16:30)
[2017-12-01] MEDS ORDERED: ACETAMINOPHEN 500 MG TAB PO PRN (16:30)
[2017-12-01] MEDS ORDERED: MORPHINE SULFATE 4 MG/ML SYR/VIAL IV PRN (16:30)
[2017-12-01] MEDS ORDERED: NITROGLYCERIN 0.4 MG SL TAB SL PRN (16:30)
[2017-12-01] MEDS ORDERED: traMADol HCL 50 MG TAB PO PRN (16:30)
[2017-12-01] MEDS ORDERED: ALBUTEROL SULF 2.5 MG/0.5ML(0.5%) NEB SOLN NEB PRN (16:30)
[2017-12-01] MEDS ORDERED: VANCOMYCIN PER PHARMACY 0 MG IV SCH (16:30)
[2017-12-01] MEDS ORDERED: LABETALOL HCL 5 MG/ML ML 20ML VIAL IV ONE (16:45)
[2017-12-01] MEDS ORDERED: LABETALOL HCL 5 MG/ML ML 20ML VIAL IV PRN ×2 (16:45)
[2017-12-01 17:15] LABS: Albumin 3.5 g/dL (3.4-5.0); BUN/Creatinine Ratio 6.2; Bilirubin, Total 1.3 mg/dL (0.2-1.0); Calcium 10.3 mg/dL (8.5-10.1); Potassium 4.2 mmol/L (3.5-5.1)
[2017-12-01 17:17] LABS: INR 1.01 (0.9-1.15); Partial Thromboplastin Time 26.8 sec (23.78-33.04); Prothrombin Time 10.8 sec (9.27-12.13)
[2017-12-01 17:22] LABS: Basophils # (auto) 0 uL; Basophils % (auto) 0.9 % (0.0-2.0); Eosinophils # (auto) 0.2 uL; Eosinophils % (auto) 5.6 % (0.0-7.0); Hematocrit 32.9 % (41.0-53.0); Hemoglobin 11.3 g/dL (13.5-17.5); Lymphocytes # (auto) 0.3 uL; Mean Corpuscular Hemoglobin 30.3 pg (28.0-32.0); Mean Corpuscular Hgb Conc. 34.4 g/dL (32.0-36.0); Monocytes # (auto) 0.6 uL; Neutrophils # (auto) 3.3 uL; Neutrophils % (auto) 73.5 % (37.0-80.0); Platelet Count (auto) 166 10^3/uL (140-450); Red Blood Cells 3.74 10^6/uL (4.5-5.90); Red Cell Distribution Width 15.8 % (11.8-14.3); White Blood Cell 4.4 10^3/uL (4.4-10.8)
[2017-12-01] MEDS ORDERED: VANCOMYCIN 1GM/250ML 250 ML IV ONE (18:30)
[2017-12-01] MEDS: IPRATROPIUM BROM 0.5 MG/2.5ML INH SOL NEB SCH (18:43)
[2017-12-01] MEDS: ALBUTEROL SULF 2.5 MG/0.5ML(0.5%) NEB SOLN NEB SCH (18:43)
[2017-12-01 19:09] VITALS: BP 187/119
[2017-12-01] MEDS: MINOXIDIL 10 MG TAB PO SCH (19:44)
[2017-12-01] MEDS: CALCIUM ACETATE 667 MG CAP PO SCH (19:44)
[2017-12-01] MEDS ORDERED: diphenhdrAMINE HCL 50 MG/1 ML VL IV PRN (21:00)
[2017-12-01] MEDS: MORPHINE SULFATE 4 MG/ML SYR/VIAL IV PRN (21:52)
[2017-12-01] MEDS ORDERED: LIDOCAINE 1% HCL (LOCAL ANESTH.) INJ 20ML MDV IJ ONE (22:00)
[2017-12-01] MEDS ORDERED: hydrOXYzine HCL 10 MG TAB PO ONE (22:45)
[2017-12-02] VITALS (8 sets, daily range): BP systolic 117–150; BP diastolic 66–83
[2017-12-02] MEDS: ALBUTEROL SULF 2.5 MG/0.5ML(0.5%) NEB SOLN NEB SCH ×2 (00:22→07:25)
[2017-12-02] MEDS: IPRATROPIUM BROM 0.5 MG/2.5ML INH SOL NEB SCH ×2 (00:22→07:25)
[2017-12-02] MEDS: cloNIDine HCL 0.1 MG TAB PO SCH ×4 (00:37→21:40)
[2017-12-02] MEDS: METOPROLOL TARTRATE 50 MG TAB PO SCH ×3 (00:38→21:41)
[2017-12-02] MEDS: FAMOTIDINE 20 MG TAB PO SCH ×2 (00:38→08:59)
[2017-12-02] MEDS ORDERED: ENALAPRILAT 1.25 MG/ML-1ML VIAL IV ONE (01:00)
[2017-12-02] MEDS: PROMETHAZINE HCL 6.25 MG/5 ML ORAL SYRUP PO SCH ×4 (01:16→21:39)
[2017-12-02] MEDS ORDERED: FERR1TAB17 PO (02:37)
[2017-12-02] MEDS: MORPHINE SULFATE 4 MG/ML SYR/VIAL IV PRN ×5 (03:00→20:09)
[2017-12-02] MEDS: MINOXIDIL 10 MG TAB PO SCH ×2 (05:17→18:49)
[2017-12-02] MEDS: ENOXAPARIN SOD 30 MG/0.3 ML SYRINGE SC SCH (08:58)
[2017-12-02] MEDS: PANTOPRAZOLE 40 MG TAB PO SCH (08:59)
[2017-12-02] MEDS: CALCIUM ACETATE 667 MG CAP PO SCH ×3 (08:59→18:49)
[2017-12-02] MEDS: NIFEdipine ER 30 MG TAB PO SCH (09:00)
[2017-12-02] MEDS ORDERED: cefTRIAXone 1GM/10ml IVPUSH 10 ML IV SCH (09:00)
[2017-12-02] MEDS ORDERED: AZITHROMYCIN 500MG/ 250ML 250 ML IV SCH (10:00)
[2017-12-02 10:50] LABS: Basophils # (auto) 0 uL; Basophils % (auto) 0.6 % (0.0-2.0); Eosinophils # (auto) 0.3 uL; Eosinophils % (auto) 10.6 % (0.0-7.0); Hematocrit 28.2 % (41.0-53.0); Hemoglobin 9.7 g/dL (13.5-17.5); Lymphocytes # (auto) 0.3 uL; Lymphocytes % (auto) 9.2 % (10.0-50.0); Mean Corpuscular Hemoglobin 30.5 pg (28.0-32.0); Mean Corpuscular Hgb Conc. 34.6 g/dL (32.0-36.0); Mean Corpuscular Volume 88.2 fL (80.0-100.0); Monocytes # (auto) 0.5 uL; Monocytes % (auto) 15.3 % (0.0-12.0); Neutrophils # (auto) 1.9 uL; Neutrophils % (auto) 64.3 % (37.0-80.0); Platelet Count (auto) 150 10^3/uL (140-450); Red Cell Distribution Width 15.1 % (11.8-14.3)
[2017-12-02 11:26] LABS: Albumin 2.8 g/dL (3.4-5.0); BUN/Creatinine Ratio 4.8; Calcium 8.9 mg/dL (8.5-10.1); Potassium 3.9 mmol/L (3.5-5.1)
[2017-12-02 11:29] LABS: Bilirubin, Total 0.9 mg/dL (0.2-1.0); Total Protein 6.1 g/dL (6.4-8.2)
[2017-12-02] MEDS ORDERED: CEFEPIME HYDROCHLORIDE IV ONE (13:30)
[2017-12-02] MEDS ORDERED: SODIUM CHL 0.9% IV ONE (13:30)
[2017-12-03] MEDS: MORPHINE SULFATE 4 MG/ML SYR/VIAL IV PRN ×6 (00:17→22:46)
[2017-12-03 05:31] VITALS: BP 121/68
[2017-12-03] MEDS: cloNIDine HCL 0.1 MG TAB PO SCH ×3 (05:51→21:38)
[2017-12-03] MEDS: PROMETHAZINE HCL 6.25 MG/5 ML ORAL SYRUP PO SCH (05:51)
[2017-12-03] MEDS: MINOXIDIL 10 MG TAB PO SCH ×2 (05:51→18:35)
[2017-12-03 08:00] VITALS: BP 118/63
[2017-12-03] MEDS: CALCIUM ACETATE 667 MG CAP PO SCH ×3 (08:17→18:35)
[2017-12-03 08:44] VITALS: BP 118/63
[2017-12-03] MEDS: ENOXAPARIN SOD 30 MG/0.3 ML SYRINGE SC SCH (09:20)
[2017-12-03] MEDS: PANTOPRAZOLE 40 MG TAB PO SCH (09:20)
[2017-12-03] MEDS: FAMOTIDINE 20 MG TAB PO SCH (09:20)
[2017-12-03] MEDS ORDERED: CEFEPIME HYDROCHLORIDE IV SCH ×2 (10:00→13:00)
[2017-12-03] MEDS: NIFEdipine ER 30 MG TAB PO SCH (10:00)
[2017-12-03] MEDS: METOPROLOL TARTRATE 50 MG TAB PO SCH ×2 (10:00→21:36)
[2017-12-03] MEDS ORDERED: SODIUM CHL 0.9% IV SCH ×2 (10:00→13:00)
[2017-12-03 12:28] VITALS: BP 126/73
[2017-12-03] MEDS ORDERED: CEFEPIME 1 GM in SODIUM CHL 0.9% 50 ML IV SCH (13:00)
[2017-12-03] MEDS ORDERED: VANCOMYCIN 1GM/250ML 250 ML IV ONE ×2 (14:00→16:00)
[2017-12-03 16:54] VITALS: BP 120/57
[2017-12-03] MEDS: CEFEPIME 1 GM in SODIUM CHL 0.9% 50 ML IV SCH (18:35)
[2017-12-03 21:54] VITALS: BP 127/73
[2017-12-03] MEDS ORDERED: PROMETHAZINE HCL 6.25 MG/5 ML ORAL SYRUP PO PRN (22:00)
[2017-12-03] MEDS ORDERED: PROMETHAZINE HCL 6.25 MG/5 ML ORAL SYRUP PO SCH (22:00)
[2017-12-04] MEDS: MORPHINE SULFATE 4 MG/ML SYR/VIAL IV PRN ×5 (02:58→20:16)
[2017-12-04] MEDS: LORazepam 0.5 MG TAB PO PRN (04:05)
[2017-12-04 05:29] VITALS: BP 162/93
[2017-12-04] MEDS: MINOXIDIL 10 MG TAB PO SCH ×2 (05:54→18:32)
[2017-12-04] MEDS: cloNIDine HCL 0.1 MG TAB PO SCH ×3 (05:55→22:00)
[2017-12-04] MEDS: CALCIUM ACETATE 667 MG CAP PO SCH ×3 (07:47→18:32)
[2017-12-04 08:00] VITALS: BP 137/78
[2017-12-04 09:00] VITALS: BP 137/78
[2017-12-04] MEDS ORDERED: CEFEPIME HYDROCHLORIDE IV SCH (10:00)
[2017-12-04] MEDS ORDERED: SODIUM CHL 0.9% IV SCH (10:00)
[2017-12-04] MEDS: METOPROLOL TARTRATE 50 MG TAB PO SCH ×2 (10:57→22:00)
[2017-12-04] MEDS: NIFEdipine ER 30 MG TAB PO SCH (10:58)
[2017-12-04] MEDS: PANTOPRAZOLE 40 MG TAB PO SCH (10:58)
[2017-12-04] MEDS: FAMOTIDINE 20 MG TAB PO SCH (10:58)
[2017-12-04] MEDS: ENOXAPARIN SOD 30 MG/0.3 ML SYRINGE SC SCH (10:58)
[2017-12-04 13:00] VITALS: BP 130/78
[2017-12-04] MEDS ORDERED: traMADol HCL 50 MG TAB PO PRN (14:30)
[2017-12-04 16:53] VITALS: BP 133/69
[2017-12-04] MEDS: CEFEPIME 1 GM in SODIUM CHL 0.9% 50 ML IV SCH (17:27)
[2017-12-04 22:00] VITALS: BP 131/68
[2017-12-05] VITALS (7 sets, daily range): BP systolic 111–156; BP diastolic 63–88
[2017-12-05] MEDS: MORPHINE SULFATE 4 MG/ML SYR/VIAL IV PRN ×5 (00:34→20:14)
[2017-12-05] MEDS: MINOXIDIL 10 MG TAB PO SCH ×2 (06:00→18:27)
[2017-12-05] MEDS: cloNIDine HCL 0.1 MG TAB PO SCH ×3 (06:00→21:40)
[2017-12-05] MEDS: CALCIUM ACETATE 667 MG CAP PO SCH ×4 (08:56→18:27)
[2017-12-05] MEDS: FAMOTIDINE 20 MG TAB PO SCH (10:08)
[2017-12-05] MEDS: METOPROLOL TARTRATE 50 MG TAB PO SCH ×2 (10:08→21:40)
[2017-12-05] MEDS: NIFEdipine ER 30 MG TAB PO SCH (10:08)
[2017-12-05] MEDS: PANTOPRAZOLE 40 MG TAB PO SCH (10:09)
[2017-12-05] MEDS: ENOXAPARIN SOD 30 MG/0.3 ML SYRINGE SC SCH (10:09)
[2017-12-05] MEDS: CEFEPIME 1 GM in SODIUM CHL 0.9% 50 ML IV SCH (17:19)
[2017-12-06] MEDS: MORPHINE SULFATE 4 MG/ML SYR/VIAL IV PRN ×4 (03:03→15:38)
[2017-12-06 05:00] VITALS: BP 135/74
[2017-12-06] MEDS: MINOXIDIL 10 MG TAB PO SCH ×2 (06:12→18:00)
[2017-12-06] MEDS: cloNIDine HCL 0.1 MG TAB PO SCH ×2 (06:12→14:00)
[2017-12-06 06:40] LABS: Basophils # (auto) 0 uL; Basophils % (auto) 0.6 % (0.0-2.0); Eosinophils # (auto) 0.5 uL; Hematocrit 27.5 % (41.0-53.0); Hemoglobin 9.8 g/dL (13.5-17.5); Lymphocytes # (auto) 0.4 uL; Lymphocytes % (auto) 10.7 % (10.0-50.0); Mean Corpuscular Hemoglobin 31.5 pg (28.0-32.0); Mean Corpuscular Hgb Conc. 35.4 g/dL (32.0-36.0); Mean Corpuscular Volume 88.9 fL (80.0-100.0); Monocytes # (auto) 0.4 uL; Monocytes % (auto) 12.8 % (0.0-12.0); Neutrophils # (auto) 2.1 uL; Neutrophils % (auto) 60.6 % (37.0-80.0); Platelet Count (auto) 117 10^3/uL (140-450); Red Cell Distribution Width 15.5 % (11.8-14.3); White Blood Cell 3.5 10^3/uL (4.4-10.8)
[2017-12-06 06:50] LABS: Eosinophils % (auto) 15.3 % (0.0-7.0)
[2017-12-06 06:51] LABS: BUN/Creatinine Ratio 5.9; Calcium 9.2 mg/dL (8.5-10.1)
[2017-12-06 06:55] LABS: INR 1.03 (0.9-1.15); Partial Thromboplastin Time 29.4 sec (23.78-33.04)
[2017-12-06 06:56] LABS: Potassium 5.7 mmol/L (3.5-5.1)
[2017-12-06] MEDS: CALCIUM ACETATE 667 MG CAP PO SCH ×3 (07:36→18:00)
[2017-12-06 08:30] VITALS: BP 139/74
[2017-12-06] MEDS: ENOXAPARIN SOD 30 MG/0.3 ML SYRINGE SC SCH (10:00)
[2017-12-06] MEDS: NIFEdipine ER 30 MG TAB PO SCH (10:00)
[2017-12-06] MEDS: METOPROLOL TARTRATE 50 MG TAB PO SCH (10:00)
[2017-12-06] MEDS: PANTOPRAZOLE 40 MG TAB PO SCH (10:45)
[2017-12-06] MEDS: FAMOTIDINE 20 MG TAB PO SCH (10:45)
[2017-12-06 12:12] VITALS: BP 141/68
[2017-12-06] MEDS: LORazepam 0.5 MG TAB PO PRN (12:40)
[2017-12-06 13:31] VITALS: BP 139/74
[2017-12-06] MEDS ORDERED: EPOETIN ALFA 2,000 UNIT/1 ML VIAL IV ONE (15:45)
[2017-12-06] MEDS ORDERED: SODIUM CHL 0.9% 1000 ML BAG XX ONE (15:45)
[2017-12-06] MEDS: CEFEPIME 1 GM in SODIUM CHL 0.9% 50 ML IV SCH (17:00)
[2017-12-06] MEDS ORDERED: VANCOMYCIN 500 MG in D5W 5% 100 ML IV ONE (17:00)
== END 2017-12-06 20:10 | disposition home or self-care (01) | DRG 177 ==
LOC: ER 14:46 → TELE 14:47 → TELE-EAST 12-02 02:30 → EAST 12-04 12:47
PROVIDERS: ADMIT Internal Medicine; ATTEND Internal Medicine
PROC: 5A1D70Z Performance of Urinary Filtration, Intermittent, Less than 6 Hours Per Day (ICD-10-PCS; 2017-12-01)
PROC: 5A1D70Z Performance of Urinary Filtration, Intermittent, Less than 6 Hours Per Day (ICD-10-PCS; 2017-12-03)
PROC: 0W993ZZ Drainage of Right Pleural Cavity, Percutaneous Approach (ICD-10-PCS; principal; 2017-12-06)
PROC: 5A1D70Z Performance of Urinary Filtration, Intermittent, Less than 6 Hours Per Day (ICD-10-PCS; 2017-12-06)
DX: J15.6 Pneumonia due to other Gram-negative bacteria (principal); N18.6 End stage renal disease; I50.33 Acute on chronic diastolic (congestive) heart failure; I13.2 Hypertensive heart and chronic kidney disease with heart failure and with stage 5 chronic kidney disease, or end stage renal disease; F11.20 Opioid dependence, uncomplicated; J18.1 Lobar pneumonia, unspecified organism; Z99.2 Dependence on renal dialysis; I16.0 Hypertensive urgency; Z91.19 Patient's noncompliance with other medical treatment and regimen; D63.8 Anemia in other chronic diseases classified elsewhere; E78.5 Hyperlipidemia, unspecified; F12.90 Cannabis use, unspecified, uncomplicated; G89.29 Other chronic pain; F41.9 Anxiety disorder, unspecified; J45.909 Unspecified asthma, uncomplicated; K21.9 Gastro-esophageal reflux disease without esophagitis; Y95 Nosocomial condition; Z76.5 Malingerer [conscious simulation]; Z82.49 Family history of ischemic heart disease and other diseases of the circulatory system; Z83.3 Family history of diabetes mellitus; Z88.0 Allergy status to penicillin; Z90.49 Acquired absence of other specified parts of digestive tract; Z84.1 Family history of disorders of kidney and ureter; Z88.5 Allergy status to narcotic agent; Z88.8 Allergy status to other drugs, medicaments and biological substances; Z79.899 Other long term (current) drug therapy
CPT/HCPCS: 10022; 32555; 36415; 71045; 71046; 76604; 76942; 80048; 80053; 80202; 82040; 83615; 83735; 83880; 84443; 84484; 85025; 85610; 85652; 85730; 87040; 87081; 90935; 93005; 94640; 96361; 96374; 96375; J0696; J7060; Q4081

== ENCOUNTER 2017-12-21 08:21 | Inpatient (IN) | payer MEDICARE, MEDICAID ==
[~2017-12-21] VITALS: Ht 165.1 cm; Wt 62.5 kg
[~2017-12-21 08:21] MED LIST changes: +FERR1TAB17 PO; -LEVO250T19 PO; -METR500T PO
[2017-12-21] MEDS ORDERED: ONDANSETRON HCL 4 MG/2 ML VIAL IV ONE (08:45)
[2017-12-21] MEDS ORDERED: LABETALOL HCL 5 MG/ML ML 20ML VIAL IV ONE (08:45)
[2017-12-21] MEDS ORDERED: MORPHINE SULFATE 4 MG/ML SYR/VIAL IV ONE (08:45)
[2017-12-21 10:00] LABS: Basophils # (auto) 0 uL; Basophils % (auto) 0.8 % (0.0-2.0); Eosinophils # (auto) 0.4 uL; Eosinophils % (auto) 6.8 % (0.0-7.0); Hematocrit 31.9 % (41.0-53.0); Hemoglobin 10.8 g/dL (13.5-17.5); Lymphocytes # (auto) 0.5 uL; Mean Corpuscular Hgb Conc. 33.9 g/dL (32.0-36.0); Mean Corpuscular Volume 88.5 fL (80.0-100.0); Monocytes # (auto) 0.5 uL; Monocytes % (auto) 7.3 % (0.0-12.0); Neutrophils # (auto) 4.9 uL; Neutrophils % (auto) 77.1 % (37.0-80.0); Platelet Count (auto) 202 10^3/uL (140-450); Red Cell Distribution Width 15.5 % (11.8-14.3); White Blood Cell 6.3 10^3/uL (4.4-10.8)
[2017-12-21 10:19] LABS: Albumin 3.2 g/dL (3.4-5.0); BUN/Creatinine Ratio 5.5; Calcium 9.4 mg/dL (8.5-10.1)
[2017-12-21 10:21] LABS: Potassium 5.6 mmol/L (3.5-5.1)
[2017-12-21 10:25] LABS: Bilirubin, Total 0.6 mg/dL (0.2-1.0); Total Protein 6.6 g/dL (6.4-8.2)
[2017-12-21 10:51] LABS: Amylase 117 U/L (25-115); Lipase 201 U/L (73-393)
[2017-12-21] MEDS ORDERED: NITROGLYCERIN 0.4 MG SL TAB SL PRN (11:00)
[2017-12-21] MEDS ORDERED: TEMAZEPAM 15 MG CAP PO PRN (11:00)
[2017-12-21] MEDS ORDERED: MORPHINE SULFATE 4 MG/ML SYR/VIAL IV PRN (11:00)
[2017-12-21] MEDS ORDERED: PROMETHAZINE HCL 25 MG/ML 1ML IV PRN (11:00)
[2017-12-21] MEDS ORDERED: DEXTROSE (50%) 50ML SYRG IV ONE (11:00)
[2017-12-21] MEDS ORDERED: DOCUSATE SOD 100 MG CAP PO PRN (11:00)
[2017-12-21] MEDS ORDERED: InsuLIN REG 1unit/0.01ml Soln (100units/ml) SC ONE (11:00)
[2017-12-21] MEDS ORDERED: SODIUM BICARBONATE 8.4 % INJ 50ML VIAL IV ONE (11:00)
[2017-12-21] MEDS ORDERED: CALCIUM GLUC 4.65meq/50ml D5AE 50 ML IV ONE (11:00)
[2017-12-21] MEDS ORDERED: cloNIDine HCL 0.1 MG TAB PO PRN (11:00)
[2017-12-21] MEDS: NICARDIPINE 25MG/250ML BAG KIT 250 ML IV SCH ×3 (11:25→20:24)
[2017-12-21] MEDS: CALCIUM ACETATE 667 MG CAP PO SCH ×2 (11:41→17:49)
[2017-12-21] MEDS: ALBUTEROL SULF 2.5 MG/0.5ML(0.5%) NEB SOLN NEB SCH ×2 (12:00→18:30)
[2017-12-21] MEDS: IPRATROPIUM BROM 0.5 MG/2.5ML INH SOL NEB SCH ×2 (12:00→18:30)
[2017-12-21] MEDS ORDERED: diphenhdrAMINE HCL 25 MG CAP PO ONE (12:23)
[2017-12-21] MEDS: diphenhdrAMINE HCL 25 MG CAP PO PRN ×2 (12:27→21:25)
[2017-12-21] MEDS: FAMOTIDINE 20 MG TAB PO SCH (12:27)
[2017-12-21] MEDS ORDERED: diphenhdrAMINE HCL 50 MG/1 ML VL IV ONE (12:30)
[2017-12-21] MEDS: MORPHINE SULFATE 4 MG/ML SYR/VIAL IV PRN ×2 (12:54→19:50)
[2017-12-21] MEDS: SODIUM CHLOR 0.9% PF (SALINE LOCK) 10ML VIAL/SYR IV SCH ×2 (13:25→21:37)
[2017-12-21] MEDS: cloNIDine HCL 0.1 MG TAB PO SCH ×2 (13:27→21:38)
[2017-12-21 13:36] VITALS: BP 212/127
[2017-12-21] MEDS ORDERED: diphenhdrAMINE-ZINC ACETATE 1 APPLIC APPL TOP ONE (13:45)
[2017-12-21] MEDS ORDERED: diphenhdrAMINE HCL 12.5 MG/5 ML UD PO ONE (13:45)
[2017-12-21 15:20] LABS: BUN/Creatinine Ratio 5.6; Calcium 10.1 mg/dL (8.5-10.1); Potassium 4.7 mmol/L (3.5-5.1)
[2017-12-21] MEDS: ONDANSETRON HCL 4 MG/2 ML VIAL IV PRN (19:50)
[2017-12-21 20:13] VITALS: BP 186/118
[2017-12-21] MEDS: MINOXIDIL 10 MG TAB PO SCH (21:38)
[2017-12-21] MEDS: METOPROLOL TARTRATE 50 MG TAB PO SCH (21:38)
[2017-12-21] MEDS ORDERED: FAMOTIDINE 20 MG TAB PO SCH (22:00)
[2017-12-22] MEDS: hydrALAZINE HCL 20 MG/ML VL IV PRN ×2 (00:51→08:03)
[2017-12-22] MEDS: MORPHINE SULFATE 4 MG/ML SYR/VIAL IV PRN ×6 (00:51→23:58)
[2017-12-22] MEDS: ONDANSETRON HCL 4 MG/2 ML VIAL IV PRN ×3 (00:52→17:39)
[2017-12-22] MEDS: LABETALOL HCL 5 MG/ML ML 20ML VIAL IV PRN ×4 (01:02→18:53)
[2017-12-22] MEDS: NICARDIPINE 25MG/250ML BAG KIT 250 ML IV SCH ×2 (01:24→06:24)
[2017-12-22] MEDS: SODIUM CHLOR 0.9% PF (SALINE LOCK) 10ML VIAL/SYR IV SCH ×3 (05:47→22:56)
[2017-12-22] MEDS: cloNIDine HCL 0.1 MG TAB PO SCH ×3 (05:47→17:46)
[2017-12-22] MEDS: IPRATROPIUM BROM 0.5 MG/2.5ML INH SOL NEB SCH ×4 (06:06→18:00)
[2017-12-22] MEDS: ALBUTEROL SULF 2.5 MG/0.5ML(0.5%) NEB SOLN NEB SCH ×4 (06:06→18:00)
[2017-12-22 06:18] LABS: Basophils # (auto) 0 uL; Basophils % (auto) 0.6 % (0.0-2.0); Eosinophils # (auto) 0.5 uL; Eosinophils % (auto) 9.8 % (0.0-7.0); Hematocrit 32.3 % (41.0-53.0); Lymphocytes # (auto) 0.4 uL; Lymphocytes % (auto) 7.9 % (10.0-50.0); Mean Corpuscular Hemoglobin 30.1 pg (28.0-32.0); Mean Corpuscular Hgb Conc. 33.9 g/dL (32.0-36.0); Mean Corpuscular Volume 88.6 fL (80.0-100.0); Monocytes # (auto) 0.5 uL; Monocytes % (auto) 10.1 % (0.0-12.0); Neutrophils # (auto) 3.6 uL; Neutrophils % (auto) 71.6 % (37.0-80.0); Platelet Count (auto) 208 10^3/uL (140-450); Red Blood Cells 3.65 10^6/uL (4.5-5.90); Red Cell Distribution Width 15.4 % (11.8-14.3)
[2017-12-22 06:41] LABS: Alanine Aminotransferase 89 U/L (16-61); Albumin 3.5 g/dL (3.4-5.0); Alkaline Phosphatase 344 U/L (45-117); Aspartate Aminotransferase 55 U/L (15-37); BUN/Creatinine Ratio 4.7; Bilirubin, Total 1.1 mg/dL (0.2-1.0); Blood Urea Nitrogen 36 mg/dL (7-18); Calcium 10.1 mg/dL (8.5-10.1); Carbon Dioxide 30 mmol/L (21-32); GFR African American 11 mL/min; GFR Non-African American 9 mL/min; Glucose 78 mg/dL (74-106); Total Protein 7.1 g/dL (6.4-8.2)
[2017-12-22 06:42] LABS: Anion Gap 10 (5-15); Chloride 97 mmol/L (98-107); Potassium 4.6 mmol/L (3.5-5.1); Sodium 137 mmol/L (136-145)
[2017-12-22] MEDS: CALCIUM ACETATE 667 MG CAP PO SCH ×3 (08:38→17:45)
[2017-12-22] MEDS: NIFEdipine ER 30 MG TAB PO SCH (10:09)
[2017-12-22] MEDS: FAMOTIDINE 20 MG TAB PO SCH (10:09)
[2017-12-22] MEDS: MINOXIDIL 10 MG TAB PO SCH ×2 (10:09→22:56)
[2017-12-22] MEDS: METOPROLOL TARTRATE 50 MG TAB PO SCH ×2 (10:09→22:57)
[2017-12-22] MEDS: PANTOPRAZOLE 40 MG TAB PO SCH (10:10)
[2017-12-22] MEDS: MULTIPLE VITAMIN TAB PO SCH (10:10)
[2017-12-22 11:58] LABS: INR 1.07 (0.9-1.15); Partial Thromboplastin Time 27.5 sec (23.78-33.04); Prothrombin Time 11.4 sec (9.27-12.13)
[2017-12-22] MEDS ORDERED: MIDAZOLAM HCL 1MG/1ML-2 ML VIAL ONE (12:53)
[2017-12-22] MEDS ORDERED: MIDAZOLAM HCL 1MG/1ML-2 ML VIAL IM ONE (13:15)
[2017-12-22] MEDS: diphenhdrAMINE HCL 25 MG CAP PO PRN (15:21)
[2017-12-22 17:20] VITALS: BP 161/94
[2017-12-22 18:50] VITALS: BP 171/101
[2017-12-22 22:00] VITALS: BP 151/81
[2017-12-23] MEDS: IPRATROPIUM BROM 0.5 MG/2.5ML INH SOL NEB SCH ×4 (00:39→18:00)
[2017-12-23] MEDS: ALBUTEROL SULF 2.5 MG/0.5ML(0.5%) NEB SOLN NEB SCH ×4 (00:39→18:00)
[2017-12-23] MEDS: MORPHINE SULFATE 4 MG/ML SYR/VIAL IV PRN ×2 (03:59→10:57)
[2017-12-23 05:00] VITALS: BP 131/79
[2017-12-23] MEDS: SODIUM CHLOR 0.9% PF (SALINE LOCK) 10ML VIAL/SYR IV SCH ×2 (05:26→14:00)
[2017-12-23] MEDS: cloNIDine HCL 0.1 MG TAB PO SCH ×2 (05:27→14:00)
[2017-12-23 09:00] VITALS: BP 130/72
[2017-12-23] MEDS ORDERED: EPOETIN ALFA 10,000 UNIT/1 ML VIAL IV ONE (10:00)
[2017-12-23] MEDS ORDERED: SODIUM CHL 0.9% 1000 ML BAG XX ONE (10:00)
[2017-12-23] MEDS: MINOXIDIL 10 MG TAB PO SCH (10:53)
[2017-12-23] MEDS: MULTIPLE VITAMIN TAB PO SCH (10:53)
[2017-12-23] MEDS: PANTOPRAZOLE 40 MG TAB PO SCH (10:53)
[2017-12-23] MEDS: NIFEdipine ER 30 MG TAB PO SCH (10:55)
[2017-12-23] MEDS: FAMOTIDINE 20 MG TAB PO SCH (10:56)
[2017-12-23] MEDS: METOPROLOL TARTRATE 50 MG TAB PO SCH (10:56)
[2017-12-23 12:00] VITALS: BP 126/69
[2017-12-23] MEDS: CALCIUM ACETATE 667 MG CAP PO SCH ×2 (12:38→18:00)
[2017-12-23] MEDS: diphenhdrAMINE HCL 25 MG CAP PO PRN (12:40)
[2017-12-23 16:51] VITALS: BP 138/73
== END 2017-12-23 18:45 | disposition home or self-care (01) | DRG 291 ==
LOC: ER 08:21 → TELE 11:11 → TELE-CENTR 12-22 17:10
PROVIDERS: ADMIT Internal Medicine; ATTEND Internal Medicine
PROC: 5A1D70Z Performance of Urinary Filtration, Intermittent, Less than 6 Hours Per Day (ICD-10-PCS; 2017-12-21)
PROC: 0W993ZZ Drainage of Right Pleural Cavity, Percutaneous Approach (ICD-10-PCS; principal; 2017-12-22)
PROC: 5A1D70Z Performance of Urinary Filtration, Intermittent, Less than 6 Hours Per Day (ICD-10-PCS; 2017-12-23)
DX: I13.2 Hypertensive heart and chronic kidney disease with heart failure and with stage 5 chronic kidney disease, or end stage renal disease (principal); I50.43 Acute on chronic combined systolic (congestive) and diastolic (congestive) heart failure; J96.00 Acute respiratory failure, unspecified whether with hypoxia or hypercapnia; N18.6 End stage renal disease; J90 Pleural effusion, not elsewhere classified; E44.0 Moderate protein-calorie malnutrition; J98.11 Atelectasis; I16.1 Hypertensive emergency; Z99.2 Dependence on renal dialysis; D63.8 Anemia in other chronic diseases classified elsewhere; K21.9 Gastro-esophageal reflux disease without esophagitis; E87.5 Hyperkalemia; E87.70 Fluid overload, unspecified; J45.909 Unspecified asthma, uncomplicated; F41.9 Anxiety disorder, unspecified; Z82.49 Family history of ischemic heart disease and other diseases of the circulatory system; Z83.3 Family history of diabetes mellitus; Z91.19 Patient's noncompliance with other medical treatment and regimen; Z68.22 Body mass index [BMI] 22.0-22.9, adult; Z90.49 Acquired absence of other specified parts of digestive tract; Z88.8 Allergy status to other drugs, medicaments and biological substances; Z88.5 Allergy status to narcotic agent
CPT/HCPCS: 36415; 71045; 76604; 76942; 80048; 80053; 82150; 82962; 83690; 84484; 85025; 85610; 85730; 87081; 90935; 93005; 94640; A6257; G0378; J0610; J0885; J1815; J2250; J2405

== ENCOUNTER 2017-12-28 19:01 | Emergency (ER) | payer MEDICARE, MEDICAID ==
[~2017-12-28] VITALS: Ht 165.1 cm; Wt 63.5 kg
[2017-12-28] MEDS ORDERED: cloNIDine HCL 0.1 MG TAB PO ONE (19:30)
[2017-12-28] MEDS ORDERED: ONDANSETRON ODT 4 MG TAB PO ONE ×2 (19:30→19:31)
[2017-12-28] MEDS ORDERED: cloNIDine HCL 0.1 MG TAB ONE (19:31)
[2017-12-28 20:02] LABS: Basophils # (auto) 0 uL; Basophils % (auto) 0.4 % (0.0-2.0); Eosinophils # (auto) 0.2 uL; Eosinophils % (auto) 3.3 % (0.0-7.0); Hematocrit 28.6 % (41.0-53.0); Hemoglobin 9.7 g/dL (13.5-17.5); Lymphocytes # (auto) 0.4 uL; Lymphocytes % (auto) 8.6 % (10.0-50.0); Mean Corpuscular Hemoglobin 30.1 pg (28.0-32.0); Mean Corpuscular Volume 88.5 fL (80.0-100.0); Monocytes # (auto) 0.6 uL; Monocytes % (auto) 13.1 % (0.0-12.0); Neutrophils # (auto) 3.5 uL; Neutrophils % (auto) 74.6 % (37.0-80.0); Platelet Count (auto) 169 10^3/uL (140-450); Red Blood Cells 3.23 10^6/uL (4.5-5.90); Red Cell Distribution Width 14.3 % (11.8-14.3); White Blood Cell 4.7 10^3/uL (4.4-10.8)
[2017-12-28 20:25] LABS: Calcium 9.1 mg/dL (8.5-10.1); Potassium 4.7 mmol/L (3.5-5.1)
[2017-12-28 20:29] LABS: BUN/Creatinine Ratio 5.6; Bilirubin, Total 0.7 mg/dL (0.2-1.0); Total Protein 6.7 g/dL (6.4-8.2)
[2017-12-28] MEDS ORDERED: ENALAPRILAT 1.25 MG/ML-1ML VIAL IV ONE (21:00)
[2017-12-28] MEDS ORDERED: diphenhdrAMINE HCL 25 MG CAP PO ONE (22:15)
[2017-12-28] MEDS ORDERED: MORPHINE SULFATE 4 MG/ML SYR/VIAL IV ONE (22:15)
[2017-12-28] MEDS ORDERED: ONDANSETRON HCL 4 MG/2 ML VIAL IV ONE (22:15)
[2017-12-28] MEDS ORDERED: ONDANSETRON HCL 4 MG/2 ML VIAL ONE (22:20)
[2017-12-29] MEDS ORDERED: MORPHINE SULFATE 4 MG/ML SYR/VIAL ONE (00:49)
[2017-12-29] MEDS ORDERED: MORPHINE SULFATE 4 MG/ML SYR/VIAL IV ONE (01:00)
[2017-12-29] MEDS ORDERED: ONDANSETRON HCL 4 MG/2 ML VIAL IV ONE (01:00)
[2017-12-29 01:24] VITALS: BP 157/86
== END 2017-12-29 01:25 | disposition home or self-care (01) ==
LOC: ER 19:03
DX: E11.22 Type 2 diabetes mellitus with diabetic chronic kidney disease (principal); I13.2 Hypertensive heart and chronic kidney disease with heart failure and with stage 5 chronic kidney disease, or end stage renal disease; N18.6 End stage renal disease; K29.70 Gastritis, unspecified, without bleeding; K21.9 Gastro-esophageal reflux disease without esophagitis; J45.909 Unspecified asthma, uncomplicated; F12.10 Cannabis abuse, uncomplicated; F41.9 Anxiety disorder, unspecified; Z90.49 Acquired absence of other specified parts of digestive tract; Z99.2 Dependence on renal dialysis; Z79.4 Long term (current) use of insulin
CPT/HCPCS: 36415; 80053; 85025; 93005; 96374; 96375; 96376; 99285; J2270; J2405; J7030; Q0162

== ENCOUNTER 2017-12-29 04:21 | Emergency (ER) | payer MEDICARE, MEDICAID ==
[~2017-12-29] VITALS: Ht 165.1 cm; Wt 63.5 kg
[2017-12-29] MEDS ORDERED: SODIUM CHLORIDE 0.9% 1,000 ML IV ONE (08:23)
[2017-12-29] MEDS ORDERED: MORPHINE SULFATE 4 MG/ML SYR/VIAL IV ONE (08:30)
[2017-12-29] MEDS ORDERED: ONDANSETRON HCL 4 MG/2 ML VIAL IV ONE (08:30)
[2017-12-29] MEDS ORDERED: MORPHINE SULFATE 4 MG/ML SYR/VIAL IM ONE (09:15)
[2017-12-29] MEDS ORDERED: ONDANSETRON ODT 4 MG TAB PO ONE (09:15)
[2017-12-29 14:05] VITALS: BP 146/83
== END 2017-12-29 13:58 | disposition home or self-care (01) ==
LOC: ER 04:21
DX: M79.662 Pain in left lower leg (principal); M79.661 Pain in right lower leg; R25.2 Cramp and spasm; I13.2 Hypertensive heart and chronic kidney disease with heart failure and with stage 5 chronic kidney disease, or end stage renal disease; N18.6 End stage renal disease; K21.9 Gastro-esophageal reflux disease without esophagitis; J45.909 Unspecified asthma, uncomplicated; F12.10 Cannabis abuse, uncomplicated; Z90.49 Acquired absence of other specified parts of digestive tract; Z99.2 Dependence on renal dialysis; Z88.0 Allergy status to penicillin
CPT/HCPCS: 93970; 96372; 99284; J2270; Q0162

== ENCOUNTER 2018-01-08 09:38 | Emergency (ER) | payer MEDICARE, MEDICAID ==
[~2018-01-08] VITALS: Ht 165.1 cm; Wt 63.5 kg
[2018-01-08] MEDS ORDERED: LABETALOL HCL 5 MG/ML ML 20ML VIAL IV ONE (10:00)
[2018-01-08] MEDS ORDERED: ONDANSETRON HCL 4 MG/2 ML VIAL IV ONE ×2 (10:15→22:00)
[2018-01-08] MEDS ORDERED: MORPHINE SULFATE 4 MG/ML SYR/VIAL IV ONE ×2 (10:15→22:00)
[2018-01-08] MEDS ORDERED: LABETALOL HCL 5 MG/ML 4ML SYRINGE IV ONE (10:30)
[2018-01-08 11:03] LABS: Basophils # (auto) 0 uL; Basophils % (auto) 0.4 % (0.0-2.0); Eosinophils # (auto) 0.5 uL; Eosinophils % (auto) 8.4 % (0.0-7.0); Hematocrit 32.3 % (41.0-53.0); Hemoglobin 10.9 g/dL (13.5-17.5); Lymphocytes # (auto) 0.5 uL; Lymphocytes % (auto) 7.8 % (10.0-50.0); Mean Corpuscular Hemoglobin 29.7 pg (28.0-32.0); Mean Corpuscular Hgb Conc. 33.6 g/dL (32.0-36.0); Mean Corpuscular Volume 88.4 fL (80.0-100.0); Monocytes # (auto) 0.5 uL; Neutrophils # (auto) 4.9 uL; Neutrophils % (auto) 76.4 % (37.0-80.0); Platelet Count (auto) 289 10^3/uL (140-450); Red Blood Cells 3.66 10^6/uL (4.5-5.90); Red Cell Distribution Width 15.2 % (11.8-14.3); White Blood Cell 6.5 10^3/uL (4.4-10.8)
[2018-01-08 11:26] LABS: Albumin 3.2 g/dL (3.4-5.0); Calcium 9.5 mg/dL (8.5-10.1)
[2018-01-08 11:32] LABS: BUN/Creatinine Ratio 7.2; Bilirubin, Total 0.5 mg/dL (0.2-1.0); Total Protein 6.9 g/dL (6.4-8.2)
[2018-01-08 11:43] LABS: Potassium 5.8 mmol/L (3.5-5.1)
[2018-01-08] MEDS ORDERED: CALCIUM GLUC 4.65meq/50ml D5AE 50 ML IV ONE (12:30)
[2018-01-08] MEDS ORDERED: cloNIDine HCL 0.1 MG TAB PO ONE ×2 (12:30→22:00)
[2018-01-08 12:34] LABS: INR 0.97 (0.9-1.15); Partial Thromboplastin Time 26.8 sec (23.78-33.04); Prothrombin Time 10.6 sec (9.27-12.13)
[2018-01-08] MEDS ORDERED: hydrALAZINE HCL 20 MG/ML VL IV ONE (14:00)
[2018-01-08] MEDS ORDERED: LORazepam 0.5 MG TAB PO ONE (15:30)
[2018-01-08] MEDS ORDERED: amLODIPine BESYLATE 5 MG TAB PO ONE (15:30)
[2018-01-08] MEDS ORDERED: SODIUM CHL 0.9% 1000 ML BAG XX ONE (18:00)
[2018-01-08] MEDS ORDERED: diphenhdrAMINE HCL 50 MG/1 ML VL IV ONE (18:00)
[2018-01-08 21:35] VITALS: BP 191/121
== END 2018-01-08 23:01 | disposition home or self-care (01) ==
LOC: ER 09:42
DX: I13.2 Hypertensive heart and chronic kidney disease with heart failure and with stage 5 chronic kidney disease, or end stage renal disease (principal); N18.6 End stage renal disease; I50.9 Heart failure, unspecified; J45.909 Unspecified asthma, uncomplicated; K21.9 Gastro-esophageal reflux disease without esophagitis; F12.10 Cannabis abuse, uncomplicated; Z88.0 Allergy status to penicillin; Z88.6 Allergy status to analgesic agent; Z99.2 Dependence on renal dialysis; Z90.49 Acquired absence of other specified parts of digestive tract; Z79.899 Other long term (current) drug therapy
CPT/HCPCS: 36415; 71045; 80053; 83880; 84484; 85025; 85610; 85730; 96365; 96375; 96376; 99285; J0360; J0610; J2270; J2405; J3490; J7030; 90935

== ENCOUNTER 2018-01-23 22:44 | Emergency (ER) | payer MEDICARE, MEDICAID ==
[~2018-01-23] VITALS: Ht 165.1 cm; Wt 61.2 kg
[2018-01-23 23:13] LABS: Basophils # (auto) 0.1 uL; Basophils % (auto) 1.1 % (0.0-2.0); Eosinophils # (auto) 0.4 uL; Eosinophils % (auto) 9.3 % (0.0-7.0); Hematocrit 34.5 % (41.0-53.0); Hemoglobin 11.7 g/dL (13.5-17.5); Lymphocytes # (auto) 0.5 uL; Lymphocytes % (auto) 11.4 % (10.0-50.0); Mean Corpuscular Hemoglobin 29.8 pg (28.0-32.0); Mean Corpuscular Hgb Conc. 33.9 g/dL (32.0-36.0); Mean Corpuscular Volume 87.8 fL (80.0-100.0); Monocytes # (auto) 0.5 uL; Monocytes % (auto) 10.2 % (0.0-12.0); Neutrophils # (auto) 3.2 uL; Nucleated Red Blood Cells % 0.1 %; Platelet Count (auto) 197 10^3/uL (140-450); Red Blood Cells 3.93 10^6/uL (4.5-5.90); Red Cell Distribution Width 16.6 % (11.8-14.3); White Blood Cell 4.7 10^3/uL (4.4-10.8)
[2018-01-23 23:28] LABS: Albumin 3.8 g/dL (3.4-5.0); BUN/Creatinine Ratio 5.8; Calcium 10.3 mg/dL (8.5-10.1); Potassium 3.8 mmol/L (3.5-5.1)
[2018-01-23 23:32] LABS: Bilirubin, Total 0.9 mg/dL (0.2-1.0)
[2018-01-24] MEDS ORDERED: hydrALAZINE HCL 25 MG TAB PO ONE
[2018-01-24] MEDS ORDERED: MORPHINE SULFATE 4 MG/ML SYR/VIAL IM ONE
[2018-01-24] MEDS ORDERED: ONDANSETRON HCL 4 MG/2 ML VIAL IM ONE
[2018-01-24] MEDS ORDERED: cloNIDine HCL 0.1 MG TAB PO ONE
[2018-01-24] MEDS ORDERED: ENALAPRILAT 1.25 MG/ML-1ML VIAL IV ONE (02:30)
[2018-01-24] MEDS ORDERED: HYDROmorphone HCL 2 MG/ML VL IV ONE (03:15)
[2018-01-24 03:51] VITALS: BP 174/114
[2018-01-24] MEDS ORDERED: LORazepam 0.5 MG TAB PO ONE (04:30)
== END 2018-01-24 04:55 | disposition home or self-care (01) ==
LOC: ER 22:46
DX: E11.22 Type 2 diabetes mellitus with diabetic chronic kidney disease (principal); I13.2 Hypertensive heart and chronic kidney disease with heart failure and with stage 5 chronic kidney disease, or end stage renal disease; I50.9 Heart failure, unspecified; N18.6 End stage renal disease; F41.9 Anxiety disorder, unspecified; J45.909 Unspecified asthma, uncomplicated; K21.9 Gastro-esophageal reflux disease without esophagitis; F12.10 Cannabis abuse, uncomplicated; Z90.49 Acquired absence of other specified parts of digestive tract; Z99.2 Dependence on renal dialysis; Z79.899 Other long term (current) drug therapy
CPT/HCPCS: 36415; 80053; 83735; 83880; 84484; 85025; 93005; 96372; 96374; 96375; 99284; J1170; J2270; J2405

== ENCOUNTER 2018-02-18 14:48 | Emergency (ER) | payer MEDICARE, MEDICAID ==
[~2018-02-18] VITALS: Ht 165.1 cm; Wt 63.5 kg
[2018-02-18 17:46] VITALS: BP 184/99
== END 2018-02-18 17:49 | disposition home or self-care (01) ==
LOC: ER 14:48
DX: N45.1 Epididymitis (principal); J45.909 Unspecified asthma, uncomplicated; I13.2 Hypertensive heart and chronic kidney disease with heart failure and with stage 5 chronic kidney disease, or end stage renal disease; N18.6 End stage renal disease; K21.9 Gastro-esophageal reflux disease without esophagitis; Z99.2 Dependence on renal dialysis; Z90.49 Acquired absence of other specified parts of digestive tract; Z88.1 Allergy status to other antibiotic agents; Z88.6 Allergy status to analgesic agent; Z88.8 Allergy status to other drugs, medicaments and biological substances
CPT/HCPCS: 76870

== ENCOUNTER 2018-03-08 18:49 | Emergency (ER) | payer MEDICARE, MEDICAID ==
[~2018-03-08] VITALS: Ht 165.1 cm; Wt 63.5 kg
[2018-03-08] MEDS ORDERED: cloNIDine HCL 0.1 MG TAB PO ONE (19:30)
[2018-03-08 20:22] LABS: Basophils # (auto) 0 uL; Basophils % (auto) 0.5 % (0.0-2.0); Eosinophils # (auto) 0.3 uL; Eosinophils % (auto) 3.6 % (0.0-7.0); Hematocrit 34.7 % (41.0-53.0); Hemoglobin 11.4 g/dL (13.5-17.5); Lymphocytes # (auto) 0.7 uL; Lymphocytes % (auto) 7.2 % (10.0-50.0); Mean Corpuscular Hemoglobin 29.9 pg (28.0-32.0); Mean Corpuscular Volume 90.6 fL (80.0-100.0); Monocytes # (auto) 0.5 uL; Monocytes % (auto) 5.2 % (0.0-12.0); Neutrophils # (auto) 7.8 uL; Neutrophils % (auto) 83.5 % (37.0-80.0); Nucleated Red Blood Cells % 0.4 %; Platelet Count (auto) 170 10^3/uL (140-450); Red Blood Cells 3.83 10^6/uL (4.5-5.90); Red Cell Distribution Width 16.7 % (11.8-14.3); White Blood Cell 9.3 10^3/uL (4.4-10.8)
[2018-03-08 20:30] LABS: Albumin 3.6 g/dL (3.4-5.0); Calcium 9.5 mg/dL (8.5-10.1)
[2018-03-08 20:34] LABS: BUN/Creatinine Ratio 7.3; Bilirubin, Total 0.8 mg/dL (0.2-1.0); Total Protein 7.8 g/dL (6.4-8.2)
[2018-03-08 20:38] LABS: Potassium 6.7 mmol/L (3.5-5.1)
[2018-03-08 21:50] LABS: INR 1.07 (0.9-1.15); Partial Thromboplastin Time 29.2 sec (23.78-33.04); Prothrombin Time 11.4 sec (9.27-12.13)
[2018-03-08] MEDS ORDERED: METOPROLOL TARTRATE 1MG/1ML-5ML VIAL IV ONE (22:30)
[2018-03-08] MEDS ORDERED: SODIUM POLYSTYRENE SULF 15GM/60ML SUSP PR ONE (23:00)
[2018-03-08] MEDS ORDERED: SODIUM BICARBONATE 8.4% INJ 50ML SYRINGE IV ONE (23:00)
[2018-03-08] MEDS ORDERED: SODIUM BICARBONATE 8.4 % INJ 50ML VIAL IV ONE (23:00)
[2018-03-08] MEDS ORDERED: DEXTROSE (50%) 50ML SYRG IV ONE (23:00)
[2018-03-08] MEDS ORDERED: MORPHINE SULFATE 10 MG/ML INJ 1ML SDV IV ONE (23:00)
[2018-03-08] MEDS ORDERED: ONDANSETRON HCL 4 MG/2 ML VIAL IV ONE (23:00)
[2018-03-08] MEDS ORDERED: CALCIUM GLUC 4.65meq/50ml D5AE 50 ML IV ONE (23:00)
[2018-03-08] MEDS ORDERED: InsuLIN REG 1unit/0.01ml Soln (100units/ml) IV ONE (23:00)
[2018-03-09] MEDS ORDERED: DEXTROSE 50% SYRINGE 50 ML IV ONE (00:31)
[2018-03-09] MEDS ORDERED: HYDROmorphone HCL 2 MG/ML VL IV ONE ×2 (00:45→03:15)
[2018-03-09] MEDS ORDERED: DEXTROSE (50%) 50ML SYRG IV ONE (00:45)
[2018-03-09 01:08] LABS: Albumin 3.2 g/dL (3.4-5.0); BUN/Creatinine Ratio 7.3
[2018-03-09 01:11] LABS: Bilirubin, Total 0.8 mg/dL (0.2-1.0); Total Protein 7.2 g/dL (6.4-8.2)
[2018-03-09] MEDS ORDERED: LABETALOL HCL 5 MG/ML ML 20ML VIAL IV ONE (03:00)
[2018-03-09] MEDS ORDERED: HYDROmorphone HCL 2 MG/ML VL ONE (03:13)
[2018-03-09 04:41] VITALS: BP 204/100
== END 2018-03-09 04:43 | disposition home or self-care (01) ==
LOC: ER 18:49
DX: I13.2 Hypertensive heart and chronic kidney disease with heart failure and with stage 5 chronic kidney disease, or end stage renal disease (principal); N18.6 End stage renal disease; I50.33 Acute on chronic diastolic (congestive) heart failure; E87.5 Hyperkalemia; J45.909 Unspecified asthma, uncomplicated; K21.9 Gastro-esophageal reflux disease without esophagitis; F12.90 Cannabis use, unspecified, uncomplicated; Z88.6 Allergy status to analgesic agent; Z88.8 Allergy status to other drugs, medicaments and biological substances; Z88.1 Allergy status to other antibiotic agents; Z79.899 Other long term (current) drug therapy; Z99.2 Dependence on renal dialysis; Z90.49 Acquired absence of other specified parts of digestive tract
CPT/HCPCS: 36415; 71046; 80053; 82962; 83735; 83880; 84484; 85025; 85610; 85730; 93005; 96365; 96375; 96376; 99284; J0610; J1170; J1815; J2270; J2405; J7042

== ENCOUNTER 2018-04-08 15:52 | Inpatient (IN) | payer MEDICARE, MEDICAID ==
[~2018-04-08] VITALS: Ht 165.1 cm; Wt 67.8 kg
[2018-04-08] MEDS ORDERED: amLODIPine BESYLATE 5 MG TAB PO ONE (16:30)
[2018-04-08] MEDS ORDERED: ONDANSETRON HCL 4 MG/2 ML VIAL ONE (17:05)
[2018-04-08 17:09] LABS: Albumin 3.1 g/dL (3.4-5.0); Calcium 9.4 mg/dL (8.5-10.1)
[2018-04-08 17:14] LABS: Basophils # (auto) 0 uL; Basophils % (auto) 0.4 % (0.0-2.0); Eosinophils # (auto) 0.5 uL; Eosinophils % (auto) 6.8 % (0.0-7.0); Hematocrit 28.6 % (41.0-53.0); Hemoglobin 9.6 g/dL (13.5-17.5); Lymphocytes # (auto) 0.4 uL; Lymphocytes % (auto) 6.4 % (10.0-50.0); Mean Corpuscular Hemoglobin 30.2 pg (28.0-32.0); Mean Corpuscular Hgb Conc. 33.6 g/dL (32.0-36.0); Mean Corpuscular Volume 89.8 fL (80.0-100.0); Monocytes # (auto) 0.8 uL; Monocytes % (auto) 11.3 % (0.0-12.0); Neutrophils # (auto) 5.2 uL; Neutrophils % (auto) 75.1 % (37.0-80.0); Platelet Count (auto) 206 10^3/uL (140-450); Red Blood Cells 3.19 10^6/uL (4.5-5.90); Red Cell Distribution Width 16.7 % (11.8-14.3); White Blood Cell 6.9 10^3/uL (4.4-10.8)
[2018-04-08] MEDS ORDERED: ONDANSETRON HCL 4 MG/2 ML VIAL IV ONE (17:15)
[2018-04-08 17:17] LABS: BUN/Creatinine Ratio 8.5; Bilirubin, Total 0.7 mg/dL (0.2-1.0); Total Protein 6.7 g/dL (6.4-8.2)
[2018-04-08 17:23] LABS: Potassium 6.3 mmol/L (3.5-5.1)
[2018-04-08] MEDS ORDERED: ALBUTEROL SULF 2.5 MG/0.5ML(0.5%) NEB SOLN NEB STA (17:23)
[2018-04-08] MEDS ORDERED: InsuLIN REG 1unit/0.01ml Soln (100units/ml) IV ONE (17:30)
[2018-04-08] MEDS ORDERED: CALCIUM GLUC 4.65meq/50ml D5AE 50 ML IV ONE (17:30)
[2018-04-08] MEDS ORDERED: SODIUM BICARBONATE 8.4% INJ 50ML SYRINGE IV ONE (17:30)
[2018-04-08] MEDS ORDERED: DEXTROSE (50%) 50ML SYRG IV ONE (17:30)
[2018-04-08] MEDS ORDERED: SODIUM POLYSTYRENE SULF 15 GM POWDER PO ONE (17:30)
[2018-04-08] MEDS ORDERED: LACTULOSE 20Gm/30ML SOLN PO PRN (19:45)
[2018-04-08] MEDS ORDERED: NITROGLYCERIN 0.4 MG SL TAB SL PRN (19:45)
[2018-04-08] MEDS ORDERED: METOPROLOL TARTRATE 1MG/1ML-5ML VIAL IV ONE (19:45)
[2018-04-08] MEDS ORDERED: cloNIDine HCL 0.1 MG TAB PO ONE (19:45)
[2018-04-08] MEDS ORDERED: MINOXIDIL 10 MG TAB PO ONE (20:00)
[2018-04-08] MEDS: MORPHINE SULFATE 4 MG/ML SYR/VIAL IV PRN ×2 (21:24→23:28)
[2018-04-08] MEDS: NITROGLYCERIN 50MG/250ML 250 ML IV SCH (21:48)
[2018-04-08 21:49] LABS: BUN/Creatinine Ratio 8.5; Calcium 8.9 mg/dL (8.5-10.1)
[2018-04-08] MEDS: FERRIC CITRATE PO SCH (22:00)
[2018-04-08] MEDS: CALCIUM ACETATE 667 MG CAP PO SCH (22:00)
[2018-04-08] MEDS: MINOXIDIL 10 MG TAB PO SCH (22:00)
[2018-04-08] MEDS: METOPROLOL TARTRATE 50 MG TAB PO SCH (22:00)
[2018-04-08] MEDS ORDERED: PROMETHAZINE HCL 6.25 MG/5 ML ORAL SYRUP PO SCH (22:00)
[2018-04-08] MEDS: cloNIDine HCL 0.1 MG TAB PO SCH (22:00)
[2018-04-08] MEDS ORDERED: diphenhdrAMINE HCL 50 MG/1 ML VL ONE (23:11)
[2018-04-08] MEDS ORDERED: diphenhdrAMINE HCL 50 MG/1 ML VL IV ONE (23:30)
[2018-04-09] MEDS ORDERED: METOPROLOL TARTRATE 50 MG TAB PO ONE (02:15)
[2018-04-09] MEDS ORDERED: cloNIDine HCL 0.1 MG TAB PO ONE (02:15)
[2018-04-09] MEDS: CALCIUM ACETATE 667 MG CAP PO SCH ×4 (04:25→18:00)
[2018-04-09] MEDS: FERRIC CITRATE PO SCH ×3 (04:26→21:55)
[2018-04-09] MEDS ORDERED: hydrALAZINE HCL 20 MG/ML VL IV ONE (06:15)
[2018-04-09] MEDS ORDERED: MORPHINE SULFATE 4 MG/ML SYR/VIAL IV ONE (06:15)
[2018-04-09] MEDS: cloNIDine HCL 0.1 MG TAB PO SCH ×3 (06:15→21:56)
[2018-04-09 06:36] LABS: Basophils # (auto) 0 uL; Eosinophils # (auto) 0.2 uL; Lymphocytes # (auto) 0.2 uL; Monocytes # (auto) 0.5 uL; Neutrophils # (auto) 3.9 uL
[2018-04-09 06:40] LABS: Basophils % (auto) 0.8 % (0.0-2.0); Eosinophils % (auto) 4.4 % (0.0-7.0); Hematocrit 23.5 % (41.0-53.0); Mean Corpuscular Hemoglobin 30.5 pg (28.0-32.0); Mean Corpuscular Hgb Conc. 34.2 g/dL (32.0-36.0); Mean Corpuscular Volume 89.2 fL (80.0-100.0); Monocytes % (auto) 10.3 % (0.0-12.0); Neutrophils % (auto) 80.5 % (37.0-80.0); Platelet Count (auto) 162 10^3/uL (140-450); Red Blood Cells 2.63 10^6/uL (4.5-5.90); Red Cell Distribution Width 16.6 % (11.8-14.3); White Blood Cell 4.9 10^3/uL (4.4-10.8)
[2018-04-09] MEDS ORDERED: NICARDIPINE 25MG/250ML BAG KIT 250 ML IV SCH (07:07)
[2018-04-09 07:23] LABS: Albumin 2.6 g/dL (3.4-5.0); Calcium 8.6 mg/dL (8.5-10.1); Potassium 4.6 mmol/L (3.5-5.1)
[2018-04-09 07:26] LABS: BUN/Creatinine Ratio 7.4
[2018-04-09 07:28] LABS: Bilirubin, Total 0.7 mg/dL (0.2-1.0); Total Protein 5.8 g/dL (6.4-8.2)
[2018-04-09] MEDS: NITROGLYCERIN 50MG/250ML 250 ML IV SCH (07:41)
[2018-04-09] MEDS: ASPirin 81 mg TAB PO SCH (08:16)
[2018-04-09] MEDS: NITROGLYCERIN 0.2MG/HR TOPICAL PATCH TD SCH (08:16)
[2018-04-09] MEDS: PANTOPRAZOLE 40 MG TAB PO SCH (08:16)
[2018-04-09] MEDS: MINOXIDIL 10 MG TAB PO SCH ×2 (08:16→21:56)
[2018-04-09] MEDS: METOPROLOL TARTRATE 50 MG TAB PO SCH ×2 (08:16→21:56)
[2018-04-09] MEDS ORDERED: NIFEdipine ER 30 MG TAB PO SCH (10:00)
[2018-04-09] MEDS: MORPHINE SULFATE 4 MG/ML SYR/VIAL IV PRN ×4 (10:24→22:53)
[2018-04-09] MEDS: ONDANSETRON HCL 4 MG/2 ML VIAL IV PRN ×3 (14:27→22:53)
[2018-04-09] MEDS ORDERED: LORazepam 2MG/ML-1ML VIAL IV ONE (21:00)
[2018-04-09] MEDS ORDERED: diphenhdrAMINE HCL 50 MG/1 ML VL IV ONE (23:45)
[2018-04-10] MEDS: ONDANSETRON HCL 4 MG/2 ML VIAL IV PRN ×3 (03:07→14:28)
[2018-04-10] MEDS: MORPHINE SULFATE 4 MG/ML SYR/VIAL IV PRN ×3 (03:08→14:28)
[2018-04-10] MEDS: FERRIC CITRATE PO SCH ×3 (06:00→22:00)
[2018-04-10] MEDS: cloNIDine HCL 0.1 MG TAB PO SCH ×3 (06:18→22:50)
[2018-04-10 07:29] LABS: Basophils # (auto) 0 uL; Basophils % (auto) 0.5 % (0.0-2.0); Eosinophils # (auto) 0.4 uL; Eosinophils % (auto) 7.5 % (0.0-7.0); Hematocrit 25.6 % (41.0-53.0); Hemoglobin 8.7 g/dL (13.5-17.5); Lymphocytes # (auto) 0.3 uL; Lymphocytes % (auto) 5.9 % (10.0-50.0); Mean Corpuscular Hemoglobin 30.6 pg (28.0-32.0); Mean Corpuscular Volume 89.9 fL (80.0-100.0); Monocytes # (auto) 0.8 uL; Monocytes % (auto) 14.6 % (0.0-12.0); Neutrophils # (auto) 4.1 uL; Neutrophils % (auto) 71.5 % (37.0-80.0); Platelet Count (auto) 178 10^3/uL (140-450); Red Blood Cells 2.85 10^6/uL (4.5-5.90); Red Cell Distribution Width 16.4 % (11.8-14.3); White Blood Cell 5.7 10^3/uL (4.4-10.8)
[2018-04-10 07:37] LABS: Albumin 2.6 g/dL (3.4-5.0); BUN/Creatinine Ratio 8.3; Calcium 8.1 mg/dL (8.5-10.1)
[2018-04-10 07:40] LABS: Bilirubin, Total 0.7 mg/dL (0.2-1.0); Total Protein 5.8 g/dL (6.4-8.2)
[2018-04-10 07:55] LABS: Potassium 6.2 mmol/L (3.5-5.1)
[2018-04-10] MEDS: NITROGLYCERIN 0.2MG/HR TOPICAL PATCH TD SCH (08:16)
[2018-04-10] MEDS: ASPirin 81 mg TAB PO SCH (08:16)
[2018-04-10] MEDS: PANTOPRAZOLE 40 MG TAB PO SCH (08:16)
[2018-04-10] MEDS: METOPROLOL TARTRATE 50 MG TAB PO SCH ×2 (08:16→22:50)
[2018-04-10] MEDS: MINOXIDIL 10 MG TAB PO SCH ×2 (08:16→22:50)
[2018-04-10] MEDS: CALCIUM ACETATE 667 MG CAP PO SCH ×2 (08:16→12:00)
[2018-04-10] MEDS ORDERED: diphenhdrAMINE HCL 50 MG/1 ML VL ONE (11:56)
[2018-04-10] MEDS ORDERED: EPOETIN ALFA 2,000 UNIT/1 ML VIAL SC ONE ×2 (12:00→21:00)
[2018-04-10] MEDS ORDERED: EPOETIN ALFA 3,000 UNIT/1 ML VIAL SC ONE ×2 (12:00→21:00)
[2018-04-10] MEDS ORDERED: diphenhdrAMINE HCL 50 MG/1 ML VL IV ONE ×2 (12:00→16:45)
[2018-04-10 17:04] LABS: Calcium 8.6 mg/dL (8.5-10.1); Potassium 4.2 mmol/L (3.5-5.1)
--- NOTE | 2018-04-10 17:45 | NUR ---
MS admit from [facility] admitted to tele/MS after SBAR received. Patient oriented to DENIZ RIVERA, primary RN, unit, room, bed, and unit policies regarding patient care and visiting hours. Patient weighed by bedscale and encouraged to call if they need something. All questions and concerns addressed, patient verbalized understanding.
[2018-04-10 18:19] VITALS: BP 163/89
[2018-04-10 20:00] VITALS: BP 170/91
[2018-04-10] MEDS ORDERED: diphenhdrAMINE HCL 25 MG CAP PO ONE (20:30)
[2018-04-10] MEDS ORDERED: EPOETIN ALFA 10,000 UNIT/1 ML VIAL SC ONE (21:00)
[2018-04-10 22:00] VITALS: BP 170/91
[2018-04-11] MEDS: MORPHINE SULFATE 4 MG/ML SYR/VIAL IV PRN ×5 (00:50→18:38)
[2018-04-11] MEDS: diphenhdrAMINE HCL 50 MG/1 ML VL IV PRN ×3 (01:21→14:02)
[2018-04-11 04:58] VITALS: BP 136/87
[2018-04-11] MEDS: FERRIC CITRATE PO SCH ×2 (06:00→13:59)
[2018-04-11] MEDS: cloNIDine HCL 0.1 MG TAB PO SCH ×2 (06:56→14:00)
[2018-04-11 07:00] LABS: Hematocrit 25.5 % (41.0-53.0); Hemoglobin 8.7 g/dL (13.5-17.5); Mean Corpuscular Hemoglobin 30.4 pg (28.0-32.0); Mean Corpuscular Hgb Conc. 34.1 g/dL (32.0-36.0); Mean Corpuscular Volume 89.1 fL (80.0-100.0); Platelet Count (auto) 155 10^3/uL (140-450); Red Blood Cells 2.87 10^6/uL (4.5-5.90); Red Cell Distribution Width 16.6 % (11.8-14.3); White Blood Cell 3.6 10^3/uL (4.4-10.8)
[2018-04-11] MEDS ORDERED: SODIUM CHL 0.9% 1000 ML BAG XX ONE (07:00)
[2018-04-11 07:06] LABS: Blast Cells 0; Metamyelocytes % 0; Myelocytes % 0; Promyelocytes % 0; Reactive Lymphocytes 0
[2018-04-11 07:07] LABS: Albumin 2.6 g/dL (3.4-5.0); Calcium 8.3 mg/dL (8.5-10.1); Potassium 5.1 mmol/L (3.5-5.1)
[2018-04-11 07:13] LABS: BUN/Creatinine Ratio 7.6; Bilirubin, Total 0.6 mg/dL (0.2-1.0); Total Protein 5.8 g/dL (6.4-8.2)
--- NOTE | 2018-04-11 07:30 | NUR ---
Opening Shift Note Assumed care of patient, awake and alert. No S/S of distress/SOB. Pain reported 08/31. Pain management options discussed with the patient. Instructed on POC and to call for assist PRN, will continue to monitor for changes Q1hr and PRN.
[2018-04-11 08:00] VITALS: BP 148/69
[2018-04-11] MEDS: CALCIUM ACETATE 667 MG CAP PO SCH ×4 (08:00→18:36)
[2018-04-11 08:30] LABS: Band Neutrophils % (manual) 5; Basophils % (manual) 1 (0.0-2.0); Eosinophils % (manual) 11 (0-7); Lymphocytes % (manual) 1 (10.0-50.0); Monocytes % (manual) 8 (0-12)
[2018-04-11 09:00] VITALS: BP 148/69
[2018-04-11] MEDS: ONDANSETRON HCL 4 MG/2 ML VIAL IV PRN ×3 (09:09→18:38)
[2018-04-11] MEDS: NITROGLYCERIN 0.2MG/HR TOPICAL PATCH TD SCH (10:00)
--- NOTE | 2018-04-11 10:20 | NUR ---
dressing change to left ej iv. the dressing was coming off. Iv redressed. Tolerated well. dressing now CDI
[2018-04-11] MEDS: ASPirin 81 mg TAB PO SCH (10:38)
[2018-04-11] MEDS: MINOXIDIL 10 MG TAB PO SCH (10:39)
[2018-04-11] MEDS: METOPROLOL TARTRATE 50 MG TAB PO SCH (10:39)
[2018-04-11] MEDS: PANTOPRAZOLE 40 MG TAB PO SCH (10:39)
[2018-04-11 12:54] VITALS: BP 137/70
[2018-04-11 13:48] VITALS: BP 137/70
[2018-04-11 17:24] VITALS: BP 138/62
--- NOTE | 2018-04-11 18:54 | NUR ---
Discharge instructions given as ordered. Encourage to follow up with PMD as instructed. All questions and concerns addressed. Patient verbalized understanding. IVs removed from left ej and left foot with catheters intact, pressure dressings applied. Telemetry unit returned to ICU. Patient ambulated to vehicle with all personal belongings, accompanied by staff and family member. No distress noted at time of departure.
[2018-04-11] MEDS ORDERED: EPOETIN ALFA 10,000 UNIT/1 ML VIAL SC ONE (21:00)
== END 2018-04-11 18:54 | disposition home or self-care (01) | DRG 291 ==
LOC: ER 15:52 → TELE 19:43 → TELE-EAST 04-10 18:00
PROVIDERS: ADMIT Internal Medicine; ATTEND Family Medicine
PROC: 5A1D70Z Performance of Urinary Filtration, Intermittent, Less than 6 Hours Per Day (ICD-10-PCS; principal; 2018-04-08)
PROC: 5A1D70Z Performance of Urinary Filtration, Intermittent, Less than 6 Hours Per Day (ICD-10-PCS; 2018-04-10)
PROC: 5A1D70Z Performance of Urinary Filtration, Intermittent, Less than 6 Hours Per Day (ICD-10-PCS; 2018-04-11)
DX: I13.2 Hypertensive heart and chronic kidney disease with heart failure and with stage 5 chronic kidney disease, or end stage renal disease (principal); I50.43 Acute on chronic combined systolic (congestive) and diastolic (congestive) heart failure; N18.6 End stage renal disease; J96.20 Acute and chronic respiratory failure, unspecified whether with hypoxia or hypercapnia; Z94.0 Kidney transplant status; J90 Pleural effusion, not elsewhere classified; E87.5 Hyperkalemia; F32.9 Major depressive disorder, single episode, unspecified; F12.90 Cannabis use, unspecified, uncomplicated; D63.1 Anemia in chronic kidney disease; F41.9 Anxiety disorder, unspecified; I16.0 Hypertensive urgency; J45.909 Unspecified asthma, uncomplicated; K21.9 Gastro-esophageal reflux disease without esophagitis; Z82.49 Family history of ischemic heart disease and other diseases of the circulatory system; Z83.3 Family history of diabetes mellitus; Z91.15 Patient's noncompliance with renal dialysis; Z91.19 Patient's noncompliance with other medical treatment and regimen; Z99.2 Dependence on renal dialysis; Z88.1 Allergy status to other antibiotic agents; Z88.5 Allergy status to narcotic agent; Z88.8 Allergy status to other drugs, medicaments and biological substances; Z90.49 Acquired absence of other specified parts of digestive tract
CPT/HCPCS: 36415; 71045; 76604; 80048; 80053; 82550; 82962; 83605; 83880; 84443; 84484; 85007; 85025; 85027; 85652; 86141; 87081; 90935; 93005; 94644; 96374; 96375; A6257; G0378; J0885; J1642; J1815; J2405; Q4081

== ENCOUNTER 2018-04-17 17:51 | Emergency (ER) | payer MEDICARE, MEDICAID ==
[~2018-04-17] VITALS: Ht 165.1 cm; Wt 63.5 kg
[2018-04-17 18:04] VITALS: BP_DIAS 129
== END 2018-04-17 23:00 | disposition left against medical advice (07) ==
LOC: ER 18:01
DX: I10 Essential (primary) hypertension (principal); R06.02 Shortness of breath; Z53.21 Procedure and treatment not carried out due to patient leaving prior to being seen by health care provider
CPT/HCPCS: 71046; 93005

== ENCOUNTER 2018-05-16 13:51 | Inpatient (IN) | payer MEDICARE, MEDICAID ==
[~2018-05-16] VITALS: Ht 154.9 cm; Wt 64.7 kg
[2018-05-16 18:42] LABS: Basophils # (auto) 0 uL; Basophils % (auto) 0.8 % (0.0-2.0); Eosinophils # (auto) 0.5 uL; Eosinophils % (auto) 9.9 % (0.0-7.0); Hematocrit 26.7 % (41.0-53.0); Lymphocytes # (auto) 0.3 uL; Lymphocytes % (auto) 6.8 % (10.0-50.0); Mean Corpuscular Hemoglobin 29.6 pg (28.0-32.0); Mean Corpuscular Hgb Conc. 33.6 g/dL (32.0-36.0); Mean Corpuscular Volume 88.1 fL (80.0-100.0); Monocytes # (auto) 0.4 uL; Monocytes % (auto) 7.5 % (0.0-12.0); Neutrophils # (auto) 3.6 uL; Platelet Count (auto) 187 10^3/uL (140-450); Red Blood Cells 3.03 10^6/uL (4.5-5.90); Red Cell Distribution Width 16.3 % (11.8-14.3); White Blood Cell 4.8 10^3/uL (4.4-10.8)
[2018-05-16 18:53] LABS: Albumin 2.7 g/dL (3.4-5.0); Calcium 8.8 mg/dL (8.5-10.1); Potassium 5.2 mmol/L (3.5-5.1)
[2018-05-16 18:56] LABS: INR 1.05 (0.9-1.15); Partial Thromboplastin Time 30.2 sec (23.78-33.04); Prothrombin Time 11.2 sec (9.27-12.13)
[2018-05-16 18:58] LABS: BUN/Creatinine Ratio 8.3; Bilirubin, Total 0.4 mg/dL (0.2-1.0); Total Protein 5.7 g/dL (6.4-8.2)
[2018-05-16] MEDS ORDERED: ONDANSETRON HCL 4 MG/2 ML VIAL IV ONE (19:45)
[2018-05-16] MEDS ORDERED: NITROGLYCERIN 0.4 MG SL TAB SL PRN (19:45)
[2018-05-16] MEDS ORDERED: ACETAMINOPHEN 500 MG TAB PO PRN (19:45)
[2018-05-16] MEDS ORDERED: MORPHINE SULFATE 4 MG/ML SYR/VIAL IV ONE (19:45)
--- NOTE | 2018-05-16 21:25 | NUR ---
MS admit from ER [facility] admitted to tele/MS after SBAR received. Patient oriented to YUMIKO BARCENAS, RN primary RN, unit, room, bed, and unit policies regarding patient care and visiting hours. Patient weighed by bedscale and encouraged to call if they need something. All questions and concerns addressed, patient verbalized understanding. Note:
[2018-05-16 21:30] VITALS: BP 196/126
--- NOTE | 2018-05-16 21:35 | NUR ---
PATIENT C/O 9/10 GENERALIZED PAIN REQUESTING PAIN MEDICATION. PATIENT HAS ALLERGIES TO ACETAMINOPHEN YET HAS IT ORDERED. PAGED HOSPITALIST REGARDING PRN ORDERS AND ORDER CLARIFICATION FOR PHENERGAN 25MG PO ELIXIR.
[2018-05-16] MEDS: cloNIDine HCL 0.1 MG TAB PO SCH (21:42)
[2018-05-16] MEDS: METOPROLOL TARTRATE 50 MG TAB PO SCH (21:42)
[2018-05-16] MEDS ORDERED: PROMETHAZINE HCL 6.25 MG/5 ML ORAL SYRUP PO SCH (22:00)
[2018-05-16] MEDS ORDERED: traMADol HCL 50 MG TAB PO ONE (22:15)
[2018-05-17] VITALS (7 sets, daily range): BP systolic 150–204; BP diastolic 72–126
[2018-05-17] MEDS: diphenhdrAMINE HCL 50 MG/1 ML VL IV PRN ×3 (01:15→22:31)
[2018-05-17] MEDS: cloNIDine HCL 0.1 MG TAB PO SCH ×3 (06:14→22:31)
[2018-05-17] MEDS: CALCIUM ACETATE 667 MG CAP PO SCH ×3 (08:00→18:00)
--- NOTE | 2018-05-17 08:00 | NUR ---
Opening Shift Note: Patient is A/O but sleepy and not wanting to wake at this time. Patient is not stating any pain nor discomfort at this time.
[2018-05-17] MEDS: NIFEdipine ER 30 MG TAB PO SCH ×2 (10:00→16:50)
[2018-05-17] MEDS: METOPROLOL TARTRATE 50 MG TAB PO SCH ×2 (10:00→16:50)
[2018-05-17] MEDS: MINOXIDIL 10 MG TAB PO SCH ×2 (10:00→16:50)
--- NOTE | 2018-05-17 10:40 | NUR ---
Dialysis nurse is at the patient's bedside preparing to connect the patient to and begin dialysis. Patient A/o x-4 and not exhibiting any s/s of distress nor pain at this time.
[2018-05-17] MEDS: PANTOPRAZOLE 40 MG TAB PO SCH (12:30)
--- NOTE | 2018-05-17 13:40 | NUR ---
Dialysis is ended. 3.7 Liters of fluid was removed through dialysis. See chart for further dialysis notes. Patient tolerated well and is sitting in bed preparing to eat lunch soon. Patient not exhibiting any distress nor stating any pain at this time.
--- NOTE | 2018-05-17 14:48 | NUR ---
Patient ate his lunch now, so his phoslo 1,334 mg was administered later than scheduled dose due to patient eating lunch late.
--- NOTE | 2018-05-17 16:50 | NUR ---
Patient is administered his anti-hypertensive oral meds at this time. These meds were held in a.m. due to the patient receiving dialysis. Post dialysis, the patient" blood pressure was assessed and is 204/117 HHmg. Blood pressure medication being prepared to be administered per APR.
--- NOTE | 2018-05-17 19:00 | NUR ---
Closing Note: Patient A/O x-4 and not exhibiting any s/s of distress nor discomfort. Care endorsed to Chayito Gaspar RN.
[2018-05-17] MEDS ORDERED: EPOETIN ALFA 10,000 UNIT/1 ML VIAL SC ONE (21:00)
--- NOTE | 2018-05-17 22:38 | NUR ---
PATIENT C/O 9 GENERALIZED PAIN REQUESTING PAIN MEDICATION. HOSPITALIST PAGED AWAITING CALL BACK.
[2018-05-17] MEDS ORDERED: traMADol HCL 50 MG TAB PO ONE (23:00)
--- NOTE | 2018-05-18 02:30 | NUR ---
PATIENT STATES HIS PAIN 11/01 REQUESTING FOR SOMETHING STRONGER THAN TRAMADOL. INFORMED PATIENT THE HOSPITALIST IS THE ONCALL PROVIDER FOR HIS PRIMARY, PAIN MANAGEMENT SHOULD HAVE BEEN BROUGHT UP TO HIS PRIMARY DURING THE DAY AND ALSO PATIENT C/O HALLUCINATIONS UPON ADMISSION, THAT NARCOTICS IS CAUTIOUSLY PRESCRIBED TO PREVENT ANY FURTHER HALLUCINATIONS. PATIENT APPEARS WITHDRAWN FLAT AFFECT. PATIENT STATES HE WANT SOMETHIGN STRONGER FOR PAIN. HOSPTIALIST PAGED AWAITING CALL BACK. Addendum: 05/18/18 at 0303 by YUMIKO BARCENAS RN RN HOSPITALIST CALLED BACK NO NEW ORDERS.
[2018-05-18] MEDS: diphenhdrAMINE HCL 50 MG/1 ML VL IV PRN ×3 (04:23→17:40)
[2018-05-18 04:45] VITALS: BP 165/85
[2018-05-18] MEDS: cloNIDine HCL 0.1 MG TAB PO SCH ×2 (05:38→15:03)
[2018-05-18 08:36] VITALS: BP 144/76
[2018-05-18] MEDS: CALCIUM ACETATE 667 MG CAP PO SCH ×3 (10:15→18:00)
[2018-05-18] MEDS: PANTOPRAZOLE 40 MG TAB PO SCH (10:43)
[2018-05-18] MEDS: METOPROLOL TARTRATE 50 MG TAB PO SCH (10:43)
[2018-05-18 10:52] VITALS: BP 144/76
[2018-05-18 12:02] VITALS: BP 171/95
[2018-05-18 13:25] LABS: BUN/Creatinine Ratio 6.6
[2018-05-18 17:02] VITALS: BP 172/94
--- NOTE | 2018-05-18 18:30 | NUR ---
Patient's b/p re-assessed prior to discharge and his blood pressure was 152/85 mmHG. Patient is not exhibiting any s/s of distress nor discomfort at this time.
--- NOTE | 2018-05-18 19:00 | NUR ---
Discharge instructions given as ordered. Encourage to follow up with PMD as instructed. All questions and concerns addressed. Patient verbalized understanding. Medication reconciliation form completed and copy given to patient. IV removed with catheter intact, pressure dressing applied, kirkpatrick. Patient taken to vehicle via wheelchair with all personal belongings, accompanied by staff and family member. No distress noted at time of departure.
== END 2018-05-18 19:00 | disposition home or self-care (01) | DRG 291 ==
LOC: ER 13:51 → OVERFLOW 19:46 → CENTRAL 21:11
PROVIDERS: ADMIT Nurse Practitioner Acute Care; ATTEND Internal Medicine Pulmonary Disease
PROC: 5A1D70Z Performance of Urinary Filtration, Intermittent, Less than 6 Hours Per Day (ICD-10-PCS; principal; 2018-05-17)
DX: I13.2 Hypertensive heart and chronic kidney disease with heart failure and with stage 5 chronic kidney disease, or end stage renal disease (principal); I50.43 Acute on chronic combined systolic (congestive) and diastolic (congestive) heart failure; N18.6 End stage renal disease; I16.9 Hypertensive crisis, unspecified; F23 Brief psychotic disorder; I16.0 Hypertensive urgency; J45.909 Unspecified asthma, uncomplicated; K21.9 Gastro-esophageal reflux disease without esophagitis; D63.8 Anemia in other chronic diseases classified elsewhere; D64.9 Anemia, unspecified; F32.9 Major depressive disorder, single episode, unspecified; F41.9 Anxiety disorder, unspecified; Z88.8 Allergy status to other drugs, medicaments and biological substances; Z99.2 Dependence on renal dialysis; Z88.5 Allergy status to narcotic agent; Z90.49 Acquired absence of other specified parts of digestive tract; Z82.49 Family history of ischemic heart disease and other diseases of the circulatory system; Z83.3 Family history of diabetes mellitus; Z79.899 Other long term (current) drug therapy
CPT/HCPCS: 36415; 71046; 80048; 80053; 83880; 84484; 85018; 85025; 85610; 85730; 87081; 90935; 96374; 96375; G0378; J0885; J2405

== ENCOUNTER 2018-06-01 13:46 | Inpatient (IN) | payer MEDICARE, MEDICAID | END 2018-06-03 22:54 | disposition still patient (30) | LOC: ER 13:46 → ICU WEST 06-02 04:02 → TELE 21:02 | DX: R10.84 Generalized abdominal pain (principal); N18.6 End stage renal disease; I16.1 Hypertensive emergency; N25.81 Secondary hyperparathyroidism of renal origin; R19.7 Diarrhea, unspecified; Z99.2 Dependence on renal dialysis; D63.8 Anemia in other chronic diseases classified elsewhere; G89.4 Chronic pain syndrome; K29.00 Acute gastritis without bleeding; R09.02 Hypoxemia ==

== ENCOUNTER 2018-08-24 21:09 | Emergency (ER) | payer MEDICAID, MEDICARE ==
[~2018-08-24] VITALS: Ht 165.1 cm; Wt 62.1 kg
[2018-08-24 21:59] VITALS: BP 122/77
== END 2018-08-25 02:33 | disposition left against medical advice (07) ==
LOC: ER 21:12
DX: R79.9 Abnormal finding of blood chemistry, unspecified (principal); Z53.21 Procedure and treatment not carried out due to patient leaving prior to being seen by health care provider

== ENCOUNTER 2018-09-07 12:41 | Emergency (ER) | payer MEDICARE ==
[~2018-09-07] VITALS: Ht 165.1 cm; Wt 68.4 kg
[2018-09-07 13:05] VITALS: BP 184/118
[2018-09-07] MEDS ORDERED: cloNIDine HCL 0.1 MG TAB PO ONE (13:15)
[2018-09-07] MEDS ORDERED: HYDROcodone-ACET 5/325MG TAB PO ONE (14:30)
[2018-09-07] MEDS ORDERED: METHOCARBAMOL 500 MG TAB PO PRN (15:00)
[2018-09-07] MEDS ORDERED: HYDROmorphone HCL 2 MG/ML VL IM ONE (15:15)
[2018-09-07] MEDS ORDERED: FERROUS SULFATE 325 MG TAB PO SCH (22:00)
[2018-09-07] MEDS ORDERED: ATORVASTATIN 20 MG TAB PO SCH (22:00)
[2018-09-07] MEDS ORDERED: AMIODARONE HCL 200 MG TAB PO SCH (22:00)
[2018-09-08] MEDS ORDERED: DIGOXIN 0.25 MG TAB PO SCH (10:00)
== END 2018-09-07 15:30 | disposition home or self-care (01) ==
LOC: ER 12:44
DX: L03.116 Cellulitis of left lower limb (principal); I13.2 Hypertensive heart and chronic kidney disease with heart failure and with stage 5 chronic kidney disease, or end stage renal disease; N18.6 End stage renal disease; I50.9 Heart failure, unspecified; J45.909 Unspecified asthma, uncomplicated; K21.9 Gastro-esophageal reflux disease without esophagitis; F12.10 Cannabis abuse, uncomplicated; Z99.2 Dependence on renal dialysis; Z90.49 Acquired absence of other specified parts of digestive tract; Z88.1 Allergy status to other antibiotic agents; Z88.6 Allergy status to analgesic agent; Z88.8 Allergy status to other drugs, medicaments and biological substances; Z79.899 Other long term (current) drug therapy
CPT/HCPCS: 36415; 84550; 96372; 99283; J1170

== ENCOUNTER 2018-09-14 20:29 | Inpatient (IN) | payer MEDICARE | END 2018-09-17 14:00 | disposition home or self-care (01) | LOC: TELE 20:30 → ER 20:29 → TELE-EAST 09-15 22:49 | DX: I13.2 Hypertensive heart and chronic kidney disease with heart failure and with stage 5 chronic kidney disease, or end stage renal disease (principal); N18.6 End stage renal disease; E44.0 Moderate protein-calorie malnutrition; F11.20 Opioid dependence, uncomplicated; I50.32 Chronic diastolic (congestive) heart failure; D63.8 Anemia in other chronic diseases classified elsewhere; G89.4 Chronic pain syndrome ==

== ENCOUNTER 2018-10-18 18:51 | Emergency (ER) | payer MEDICARE ==
[~2018-10-18] VITALS: Ht 165.1 cm; Wt 62.6 kg
[2018-10-18 20:12] LABS: Basophils # (auto) 0 uL; Basophils % (auto) 0.5 % (0.0-2.0); Eosinophils # (auto) 0.3 uL; Hematocrit 31.6 % (41.0-53.0); Hemoglobin 10.7 g/dL (13.5-17.5); Lymphocytes # (auto) 0.2 uL; Mean Corpuscular Hemoglobin 29.7 pg (28.0-32.0); Mean Corpuscular Hgb Conc. 33.8 g/dL (32.0-36.0); Mean Corpuscular Volume 87.8 fL (80.0-100.0); Monocytes # (auto) 0.5 uL; Monocytes % (auto) 10.3 % (0.0-12.0); Neutrophils # (auto) 3.9 uL; Neutrophils % (auto) 79.2 % (37.0-80.0); Platelet Count (auto) 212 10^3/uL (140-450); Red Cell Distribution Width 16.8 % (11.8-14.3)
[2018-10-18 20:34] LABS: BUN/Creatinine Ratio 4.1
[2018-10-18 20:35] LABS: Albumin 3.1 g/dL (3.4-5.0); Calcium 8.7 mg/dL (8.5-10.1)
[2018-10-18 20:37] LABS: Bilirubin, Total 0.8 mg/dL (0.2-1.0); Total Protein 7.2 g/dL (6.4-8.2)
[2018-10-18 20:49] LABS: Potassium 2.9 mmol/L (3.5-5.1)
[2018-10-18] MEDS ORDERED: POTASSIUM CHL 20 Meq TABLET PO ONE (21:15)
[2018-10-18] MEDS ORDERED: cloNIDine HCL 0.1 MG TAB PO ONE (21:15)
[2018-10-18] MEDS ORDERED: HYDROmorphone HCL 2 MG/ML VL IV ONE ×2 (22:00→23:15)
[2018-10-18] MEDS ORDERED: ONDANSETRON HCL 4 MG/2 ML VIAL IV ONE (22:00)
[2018-10-18] MEDS ORDERED: hydrALAZINE HCL 20 MG/ML VL IV ONE (22:15)
[2018-10-19] MEDS ORDERED: HYDROmorphone HCL 2 MG/ML VL IV ONE (03:00)
[2018-10-19] MEDS ORDERED: ONDANSETRON HCL 4 MG/2 ML VIAL IV ONE (03:00)
[2018-10-19] MEDS ORDERED: ENALAPRILAT 1.25 MG/ML-1ML VIAL IV ONE (04:15)
[2018-10-19 04:18] VITALS: BP 146/90
== END 2018-10-19 04:37 | disposition home or self-care (01) ==
LOC: ER 18:52
DX: R60.0 Localized edema (principal); I13.2 Hypertensive heart and chronic kidney disease with heart failure and with stage 5 chronic kidney disease, or end stage renal disease; N18.6 End stage renal disease; I50.9 Heart failure, unspecified; Z99.2 Dependence on renal dialysis; E87.6 Hypokalemia; J45.909 Unspecified asthma, uncomplicated; K21.9 Gastro-esophageal reflux disease without esophagitis; Z86.2 Personal history of diseases of the blood and blood-forming organs and certain disorders involving the immune mechanism; Z79.899 Other long term (current) drug therapy; Z90.49 Acquired absence of other specified parts of digestive tract; Z88.8 Allergy status to other drugs, medicaments and biological substances; Z88.6 Allergy status to analgesic agent; Z88.5 Allergy status to narcotic agent
CPT/HCPCS: 36415; 80053; 84550; 85025; 93971; 96374; 96375; 96376; 99284; J0360; J1170; J2405